=== PATIENT | male | born 1970 | race Caucasian/White ===

== ENCOUNTER 2020-03-30 15:00 | Outpatient (CLI) | payer OTHER, SELFPAY ==
[2020-03-30 15:48] LABS: Alanine Aminotransferase 36 U/L (4-50); Albumin Level 4.1 g/dL (3.5-5.1); Alkaline Phosphatase 60 U/L (38-126); Anion Gap 6 mmol/L (8-16); Aspartate Amino Transferase 46 U/L (17-59); Bilirubin,Total 0.4 mg/dL (0.2-1.3); Blood Urea Nitrogen 19 mg/dL (9-20); Calcium 10.4 mg/dL (8.4-10.2); Carbon Dioxide 29 mmol/L (22-30); Chloride 104 mmol/L (98-107); Estimated Glomerular Filt Rate > 60; Glucose 108 mg/dL (75-110); Potassium 4.6 mmol/L (3.4-5.0); Sodium 139 mmol/L (137-145)
== END 2020-03-30 15:01 | disposition home or self-care (01) ==
LOC: ANHLAB 15:07
PROVIDERS: PCP Family Medicine
DX: K59.03 Drug induced constipation (principal); G56.02 Carpal tunnel syndrome, left upper limb; Z79.891 Long term (current) use of opiate analgesic; M48.02 Spinal stenosis, cervical region; R53.83 Other fatigue; G89.4 Chronic pain syndrome; M47.817 Spondylosis without myelopathy or radiculopathy, lumbosacral region
CPT/HCPCS: 36415; 80053

== ENCOUNTER → 2020-04-27 06:55 | Outpatient (CLI) | payer OTHER, SELFPAY ==
[2020-04-27 17:02] LABS: SARS-CoV-2 RNA PCR Negative
== END ==
PROVIDERS: PCP Family Medicine; Visit Provider Physician Assistant
DX: R68.89 Other general symptoms and signs (principal); Z20.822 Contact with and (suspected) exposure to COVID-19
CPT/HCPCS: C9803; U0003; U0005

== ENCOUNTER 2020-04-28 09:54 | Outpatient (CLI) | payer OTHER, SELFPAY ==
--- NOTE | ~2020-04-28 | XR_ITS ---
EXAMINATION: XR chest 2V DATE: 04/28/2020 10:15 INDICATION: Cough. TECHNIQUE: Frontal and lateral views of the chest were obtained. COMPARISON: Chest 2 views 12/05/2014 FINDINGS: The chest demonstrates clear lungs without pneumonia, pleural effusion, or pneumothorax. Th e heart size is normal. IMPRESSION: 1. No acute cardiopulmonary disease. Reviewed, dictated and finalized at location A.
== END 2020-04-28 09:55 | disposition home or self-care (01) ==
LOC: ANHIMG 10:03
PROVIDERS: PCP Family Medicine; Visit Provider Family Medicine
DX: R05 Cough (principal); Z72.0 Tobacco use
CPT/HCPCS: 71046

== ENCOUNTER → 2022-05-24 16:17 | Outpatient (CLI) | payer OTHER, SELFPAY ==
--- NOTE | ~2022-05-24 | CT_ITS ---
EXAMINATION: CT lung screening DATE: 05/24/2022 16:32 INDICATION: Personal history of nicotine dependence, current smoker with 35 pack year history TECHNIQUE: Computed tomography (CT) of the chest was performed without intravenous contrast. The dose -length product (DLP) was 160.48 mGy-cm. Automated exposure control and iterative reconstruction tech [employer] were employed. COMPARISON: None FINDINGS: There is mild emphysema. The lungs are free of acute opacities. No pleural effusion or pneu mothorax. No pathologically enlarged thoracic lymph nodes are identified. The heart size is normal. C alcified coronary artery atherosclerosis is noted. There is mild thoracic spondylosis. IMPRESSION: 1. Lung-RADS category 1: Negative. Continue annual screening with noncontrast low-dose chest CT in 12 months. Reviewed, dictated and finalized at location F. IMPRESSION: 1. Lung-RADS category 1: Negative. Continue annual screening with noncontrast l ow-dose chest CT in 12 months.
== END ==
PROVIDERS: PCP Family Medicine; Visit Provider Family Medicine
DX: Z12.2 Encounter for screening for malignant neoplasm of respiratory organs (principal); F17.210 Nicotine dependence, cigarettes, uncomplicated
CPT/HCPCS: 71271

== ENCOUNTER 2022-07-05 01:05 | Day surgery (SDC) | payer OTHER, SELFPAY ==
[2022-06-20 11:58] VITALS: BMI 25.8
[2022-07-05 09:42] VITALS: BP 120/72; PULSE 63; RESP 19; TEMP 36.3; O2SAT 100
[2022-07-05] MEDS: LACTATED RINGERS 1,000 ML 150 ML IV CONT (09:53)
--- NOTE | 2022-07-05 10:15 | PM.HPGS ---
History of Present Illness History of Present Illness Consent: Risks, benefits, and alternatives have been discussed and questions answered. Patient agrees to proceed with procedure. Chief complaint: family hx colon ca, hx colon polyps Narrative: Tommy Kathleen is a 52 year old male whose father had colon cancer. He himself has had polyps removed in the past, most recently about 6 years ago. Review of Systems Review of Systems: All systems reviewed & are unremarkable except as noted in HPI and below PMFSH Past Medical History Medical History Acute non-recurrent maxillary sinusitis Adenomatous polyp of sigmoid colon Bipolar disorder, unspecified Bronchitis Closed nondisplaced fracture of proximal phalanx of left great toe Colon polyps Colon polyps FHx: colon cancer Lipid screening Lower extremity pain, bilateral Major depressive disorder, recurrent, moderate Other chronic pain Pneumonia of left lower lobe due to infectious organism Tobacco abuse Tobacco abuse Family History Family History Mother Depression Sibling Depression Patient's brother is Father Carcinoma of colon, Onset Age: 70 Patient's father is Social History Social History Social History: Smoking packs per day: 1 Smoking cigarettes per day: 20.0 Years smoked: 30 Smoking pack-years: 30.00 Smoking status: Current every day smoker Tobacco type: cigarettes Second hand tobacco smoke exposure: Yes Smoking end date: 02/11/16 Alcohol intake: current Substance use: never Substance use type: does not use Lack of Transportation: No Lack of Food: Never True Current Housing: I Have Housing Concerned About Future Housing: No Difficulty Paying Gas/Electric Bills: No Difficulty Paying for Meds: No Currently Unemployed: No Education: Decline to Answer Living arrangements: with family Occupation/Education: occupation Gender identity (if verbalized by the patient): Male Sexual Orientation (if Verbalized by the Patient): Straight or Heterosexual Spiritual care concerns: No Meds Home Medications and Allergies Home Medications Medication Instructions Recorded Confirmed Type dexmethylphenidate 10 mg tablet 10 mg PO BID 04/28/20 06/20/22 History (Focalin) lamotrigine 200 mg tablet 200 mg PO DAILY 04/28/20 06/20/22 History hydrocodone 7.5 mg-acetaminophen 1 tablet PO Q8H PRN Pain 05/14/22 06/20/22 History 325 mg tablet serdexmethylphenidate 52.3 1 tablet PO QAM 05/14/22 06/20/22 History mg-dexmethylphenidate 10.4 mg capsule (Azstarys) vilazodone 40 mg tablet (Viibryd) 40 mg PO DAILY 05/14/22 06/20/22 History Allergies Allergy/AdvReac Type Severity Reaction Status Date / Time No Known Allergies Allergy Verified 07/05/22 09:41 Vital Signs Vital Signs - 24 hr 07/05/22 09:42 Temperature 36.3 C L Pulse Rate 63 Respiratory Rate 19 Blood Pressure 120/72 Pulse Oximetry 100 Oxygen Delivery Room Air Exam Resp: Auscultation: clear to auscultation bilaterally Cardio: Rate: regular rate Rhythm: regular rhythm GI: GI Palp: Yes Soft to palpation and No Tenderness to palpation present (GI) Assessment and Plan Assessment and plan (1) Colon cancer screening: Code(s): Z12.11 - Encounter for screening for malignant neoplasm of colon Status: Acute Assessment and Plan: Colonoscopy with possible biopsy or polypectomy or cautery or injection of substances.
--- NOTE | 2022-07-05 10:44 | WPDANESEPPF ---
Anes - Initial Pre Proc Eval Procedure: Operation Date: 07/05/22 11:00 Proposed Procedures p Colonoscopy - Tomas Carrasco MD Date/Time: 07/05/22 10:44 Surgeon: Tomas Carrasco MD Pre Op Diagnosis: family hx colon ca, hx colon polyps Patient Data Age: 52 Gender: M Height: 1.8 m Weight: 80.2 kg Last Vital Signs Temp 97.4 F L 07/05/22 09:42 Pulse 63 07/05/22 09:42 Resp 19 07/05/22 09:42 BP 120/72 07/05/22 09:42 Pulse Ox 100 07/05/22 09:42 O2 Del Method Room Air 07/05/22 09:42 Allergies Allergy/AdvReac Type Severity Reaction Status Date / Time No Known Allergies Allergy Verified 07/05/22 09:41 Home Medications Medication Instructions Recorded Confirmed Type dexmethylphenidate 10 mg tablet 10 mg PO BID 04/28/20 06/20/22 History (Focalin) lamotrigine 200 mg tablet 200 mg PO DAILY 04/28/20 06/20/22 History hydrocodone 7.5 mg-acetaminophen 1 tablet PO Q8H PRN Pain 05/14/22 06/20/22 History 325 mg tablet serdexmethylphenidate 52.3 1 tablet PO QAM 05/14/22 06/20/22 History mg-dexmethylphenidate 10.4 mg capsule (Azstarys) vilazodone 40 mg tablet (Viibryd) 40 mg PO DAILY 05/14/22 06/20/22 History Patient hx anesthesia problems: none Family hx anesthesia problems: none Results Review: All pre-operative results and documents have been reviewed as part of the pre-operative evaluation. [facility] Past Medical History Medical History Acute non-recurrent maxillary sinusitis Adenomatous polyp of sigmoid colon Bipolar disorder, unspecified Bronchitis Closed nondisplaced fracture of proximal phalanx of left great toe Colon polyps Colon polyps FHx: colon cancer Lipid screening Lower extremity pain, bilateral Major depressive disorder, recurrent, moderate Other chronic pain Pneumonia of left lower lobe due to infectious organism Tobacco abuse Tobacco abuse Family History Family History Mother Depression Sibling Depression Patient's brother is Father Carcinoma of colon, Onset Age: 70 Patient's father is Social History Social History Social History: Smoking packs per day: 1 Smoking cigarettes per day: 20.0 Years smoked: 30 Smoking pack-years: 30.00 Smoking status: Current every day smoker Tobacco type: cigarettes Second hand tobacco smoke exposure: Yes Smoking end date: 02/11/16 Alcohol intake: current Substance use: never Substance use type: does not use Lack of Transportation: No Lack of Food: Never True Current Housing: I Have Housing Concerned About Future Housing: No Difficulty Paying Gas/Electric Bills: No Difficulty Paying for Meds: No Currently Unemployed: No Education: Decline to Answer Living arrangements: with family Occupation/Education: occupation Gender identity (if verbalized by the patient): Male Sexual Orientation (if Verbalized by the Patient): Straight or Heterosexual Spiritual care concerns: No Anes - Eval Final PreProcedure Day of Procedure 07/05/22 10:44 Patient weight: normal Heart: regular rate and rhythm Lungs: clear to auscultation Airway: Mallampati scale class II Neurological: alert and oriented Last oral intake: >/= 8 hours ASA classification: III Emergent: no Anesthetic plan: proceed Anesthesia type and monitoring: general GIVS and standard monitoring Results Review: All pre-operative results and documents have been reviewed as part of the pre-operative evaluation. Informed Consent: The patient's anesthetic plan and its attendant risks and benefits were discussed with the patient/family/POA. Questions were solicited and answers provided to the satisfaction of the patient/family/POA.
[2022-07-05] MEDS: SIMETHICONE ORAL SUSPENSION 20 MG/0.3 ML 30 ML BOTTLE 0.6 ML IRRIGATION (10:53)
[2022-07-05 11:07] VITALS: BP 122/76; PULSE 60; RESP 15; O2SAT 100
[2022-07-05 11:17] VITALS: BP 123/74; PULSE 61; RESP 15; O2SAT 100
[2022-07-05 11:27] VITALS: BP 122/76; PULSE 64; RESP 15; O2SAT 100
== END 2022-07-05 11:35 | disposition home or self-care (01) ==
PROVIDERS: PCP Family Medicine; Visit Provider Internal Medicine Gastroenterology
PROC: 0DJD8ZZ Inspection of Lower Intestinal Tract, Via Natural or Artificial Opening Endoscopic (ICD-10-PCS; CPT 45378; principal; 2022-07-05 11:00)
DX: Z12.11 Encounter for screening for malignant neoplasm of colon (principal); D12.4 Benign neoplasm of descending colon; Z80.0 Family history of malignant neoplasm of digestive organs; F17.210 Nicotine dependence, cigarettes, uncomplicated
CPT/HCPCS: 45380; 88305; J2001; J2704; J7120

== ENCOUNTER 2023-06-02 08:17 | Outpatient (CLI) | payer OTHER, SELFPAY ==
--- NOTE | ~2023-06-02 | CT_ITS ---
EXAMINATION: CT lung screening DATE: 06/02/2023 08:31 INDICATION: Nicotine dependence TECHNIQUE: Computed tomography (CT) of the chest was performed without intravenous contrast. The dose -length product was 150.03 mGy-cm. Automated exposure control and iterative reconstruction technique were employed. COMPARISON: CT chest dated 05/24/2022 FINDINGS: Heart size is normal. No thoracic lymphadenopathy. No significant pleural or pericardial ef fusion. Upper abdomen is unremarkable. No endobronchial lesions. No pneumothorax. No suspicious pulmo nary nodules or masses. There is a 2 mm fissural nodule on the right. Mild thoracic spondylosis. No f ocal lytic or blastic lesions. IMPRESSION: 1. Lung-RADS category 2: Benign appearance or behavior. Continue annual screening with noncontrast lo w-dose chest CT in 12 months. Reviewed, dictated and finalized at location B. IMPRESSION: 1. Lung-RADS category 2: Benign appearance or behavior. Continue annual screeni ng with noncontrast low-dose chest CT in 12 months.
== END 2023-06-02 08:18 ==
LOC: MICIMG 08:18
PROVIDERS: PCP Family Medicine; Visit Provider Family Medicine
DX: Z12.2 Encounter for screening for malignant neoplasm of respiratory organs (principal); Z87.891 Personal history of nicotine dependence
CPT/HCPCS: 71271

== ENCOUNTER 2024-06-04 08:39 | Outpatient (CLI) | payer OTHER, SELFPAY ==
--- OUTSIDE RECORDS SUMMARY | 2024-06-04 08:49 | XMS_ITS | Clinical Summary ---
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 01/08/2018 Active Last Documented On 3 5:51PM ; [facility] Past Visits Onset Date Resolved Date Provider Condition Status Esophageal Reflux 04/13/2019 Active Last Documented On 3 5:52PM ; [facility] Nonorganic Sleep Apnea Obstructive 02/10/2019 Active Last Documented On 3 5:52PM ; [facility] Vitamin Deficiency 10/11/2017 Active Last Documented On 3 5:51PM ; [facility] Note: Vitamin D deficiency Psychophysiological Insomnia 03/08/2016 Active Last Documented On 3 5:50PM ; [facility] Nicotine Dependence 05/13/2014 Activ e Last Documented On 3 5:48PM ; [facility] Generalized Anxiety Disorder 01/05/2014 Active Last Documented On 3 5:47PM ; [facility] Major Depression, Recurrent 01/05/2014 Active Last Documented On 3 5:47PM ; [facility] Bipolar II Disorder 10/11/2013 Activ e Last Documented On 3 5:47PM ; [facility] Plan of Treatment Pending Tests Order Diagnosis Results Due Ordering P roelidader Lab Lipid Panel 03/19/23 FRANCINE HARPER MD Last Documented On 4 5:44PM ; [facility] Lab Vitamin D 03/19/23 FRANCINE DYER MD Last Documented On 4 5:44PM ; [facility] Lab CMP (FASTING) 03/19/23 FRANCINE DHALIWAL MD Last Documented On 4 5:44PM ; [facility] Assessments Includes: Assessments from this encounter Findings - Attention deficit disorder without hyperactivity, predominantly inattentive type - Last Documented On 01/13/2023 1:13PM ; [facility] Medical Equipment - Implanted Devices Includes: Current Devices No Medical Equipment Recorded Medications Includes: Medications discussed during this encounter and other current Medications New / Renewed during this visit FRANCINE DHALIWAL MD on 01/13/2023 Methylphenidate HCl 20 MG Oral Tablet Provider: FRANCINE DHALIWAL MD 30 day supply: 30 tablet, 0 refills Diagnosis: Attn-defct hyperactivity disorder, predom inattentive type as directed - 1 tab at 1 pm Pharmacy: [facility] [address] [facility], [id number] - Last Documented On 07/02/2023 5:17PM By Randi Dhaliwal MD ; [facility] Current Medications (continue as prescribed) Focalin 10 MG Oral Tablet 07/30/2023 Provider: FRANCINE DHALIWAL MD Diagnosis: Attn-defct hyper activity disorder, predom inattentive type as directed -- 1 tab in am a nd 1 tab at 12 noon Last Documented On 07/30/2023 3:13PM By Randi Dhaliwal MD ; [facility] Azstarys 52.3-10.4 MG Oral Capsule 07/30/2023 Provider: FRANCINE DHALIWAL MD Diagnosis: Attn-defct hyper activity disorder, predom inattentive type 1 Capsule every morning Last Documented On 07/30/2023 3:13PM By Randi Dhaliwal MD ; [facility] Ergocalciferol 1.25 MG (99512 UT) Oral Capsule 07/03/2023 Provider: FRANCINE MARTINEZ MD Diagnosis: Vitamin D defici ency, unspecified as directed 1 capsule once a week Last Documented On 07/03/2023 9:50PM By Randi Dhaliwal MD ; [facility] lamoTRIgine 150 MG Oral Tablet 05/06/2023 Provider: FRANCINE DHALIWAL MD Diagnosis: Bipolar II disor jason TAKE 1 TABLET BY MOUTH TWICE A DAY Last Documented On 05/06/2023 8:06AM By Randi Dhaliwal MD ; [facility] HYDROcodone-Acetaminophen 7.5-325 MG OR TABS Provider: Diagnosis: 1 - 3 times daily as needed 01/07/22 Last Documented On 06/08/2022 5:34PM By JOIE ARCHIBALD ; [facility] Belsomra 10 MG OR TABS 10/31/2021 Provider: ANDRE DHALIWAL MD Diagnosis: Psychophysiologi c insomnia One tablet at bed time Last Documented On 06/08/2022 5:34PM By Randi Dhaliwal MD ; [facility] Sildenafil Citrate 20 MG OR TABS 09/12/2020 Provider: FRANCINE DHALIWAL MD Diagnosis: Male erectile di sorder as directed -- 1 tab a day a s needed only Last Documented On 06/08/2022 5:34PM By Randi Dhaliwal MD ; [facility] Past Medications on file Vilazodone HCl 40 MG Oral Tablet 11/07/2022 - 11/02/2023 Provider: FRANCINE DHALIWAL MD Diagnosis: Major depressive disorder, recurrent, moderate 1 tablet every morning with food Last Documented On 11/07/2022 5:41PM By Randi Dhaliwal MD ; [facility] Azstarys 39.2-7.8 MG OR CAPS 02/07/2022 - 03/09/2022 Provider: FRANCINE DHALIWAL MD Diagnosis: Attn-defct hyper activity disorder, predom inattentive type 1 Capsule every morning Last Documented On 06/08/2022 5:34PM By Randi Dhaliwal MD ; [facility] Mydayis 25 MG OR CP24 04/13/2019 - 05/13/2019 Provider: FRANCINE DHALIWAL MD Diagnosis: Attn-defct hyper activity disorder, predom inattentive type 1 Capsule every morning Last Documented On 06/08/2022 5:34PM By Randi Dhaliwal MD ; [facility] Cialis 20 MG OR TABS 12/09/2014 - 12/12/2014 Provider: FRANCINE DHALIWAL MD Diagnosis: Male erectile dysfunction, unspecified as directed --given 3 tablet s samples of 20 mg --36 hour tablet Last Documented On 06/08/2022 5:34PM By Randi Dhaliwal MD ; [facility] levoFLOXacin 500 MG OR TABS 12/09/2014 - 12/23/2014 Pr ovider: Diagnosis: Take 1 tablet by mouth twice daily until gone Last Documented On 06/08/2022 5:34PM By RYNE EMERY LPN ; [facility] Medications Administered Includes: Administered Medications from this encounter No Administered Medications Recorded Results Includes: Results discussed during this encounter No Results Recorded For Specified Dates History of Present Illness Includes: History of Present Illness from this encounter No History of Present Illness Recorded Social History No Social History Recorded - Smoking Status Unknown Medical History Includes: Medical History addressed during this encounter No Medical History Recorded Family History Includes: Family History addressed during this encounter No Family History Recorded Review of Systems Includes: Review of Systems from this encounter No Review of Systems Recorded Mental Status Includes: Mental Status from this encounter No Mental Status Recorded Functional Status Includes: Functional Status from this encounter No Functional Status Recorded Physical Exam Includes: Physical Exam from this encounter No Physical Exam Recorded Allergies Includes: Active Allergies No Known Allergies Encounters Encounter Provider Location Date Check-In Time Check-Out Time Diagnosis * PHONE CALL FRANCINE DHALIWAL MD [facility] 01/14/20 23 10:34AM 11:59PM 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 Insurance Includes: Active Insurance Policies Plan Name Member ID Group # Subscriber Relationship Effect tanja Dates 1 - [employer] [id number] TOMMY FELIPE Self 08/10/2016 - Unknown Clinical Notes Includes: Clinical Notes from this encounter * Progress note Date Encounter Last Documented by 01/13/2023 * PHONE CALL Last documented on 01/13/2023; 1:14 PM, FRANCINE DHALIWAL MD; [facility] Active Problems & Conditions - 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 He would like to request a replacement for his backup Focalin 10 mg 1 qam and 1 at noon since it is on back order at every pharmacy he checked and he has not been able to get it. He will continue the Azstarys 52.3 mg in the morning. pt phone # for return call: [phone] date/initials: 01/13/23 bk Current Medication - Azstarys 52.3-10.4 MG Oral Capsule 1 Capsule every morning, 30 days, 0 refills - Belsomra 10 MG Tablet One tablet at bed time One tablet at bed time, 30 days, 1 refills - Cyclobenzaprine HCl 10 MG Tablet as directed 1 tab prn, 30 days, 0 refills - Ergocalciferol 1.25 MG (36273 UT) Oral Capsule as directed 1 capsule once a week, 90 days, 3 refills - Ergocalciferol 1.25 MG (92555 UT) Oral Capsule as directed 1 capsule once a week, 90 days, 3 refills - Focalin 10 MG Oral Tablet as directed -- 1 tab in am and 1 tab at 12 noon, 30 days, 0 refills - HYDROcodone-Acetaminophen 7.5-325 MG Tablet as directed 1 - 3 times daily as needed 01/07/22, 28 days, 0 refills - lamoTRIgine 150 MG Tablet TAKE 1 TABLET BY MOUTH TWICE A DAY, 90 days, 3 refills - Sildenafil Citrate 20 MG Tablet as directed as directed -- 1 tab a day as needed only, 30 days, 3 refills - Vilazodone HCl 40 MG Oral Tablet 1 tablet every morning with food, 90 days, 3 refills - Vitamin D (Ergocalciferol) 1.25 MG (17484 UT) Capsule TAKE 1 CAPSULE BY MOUTH ONCE A WEEK, 90 days, 3 refills User Defined 4 Past Psychiatric Hospitalizations: none Past Psychiatric Treatment: Dr. Willard for nine months. He was put on Celexa , Buspar, Trazodone. Dr. Saba in 2007. Dr. Dhaliwal -- on 04/11/2008 and then stopped coming. His last visit with tx was 04/04/10 and has never called for follow up until later. Past Psychiatric Medications: Zoloft -- helped in 1994, but had diarrhea. Celexa 60 mg one a day for which he responded before but then when it was reintroduced in August 2013 somehow his depression got worse. Prozac -- given by his then primary care physician around September 2013 but depression got worse. Bupropion -- 2000 + did not do well with it, had side effects Cialis -- did not help much Viagra -- sometimes it helped and at other times not Chantix -- it helped him quit smoking -- he quit smoking 07/2016 after about 30 years of smoking but started smoking again in late 2016 early 2017 -- tried Chantix 10/2018 caused stomach upset Buspar -- did not help Trazodone -- did not help Vyvanse 30 mg -- diarrhea -- stopped taking 10/2018 Mydayis -- apprehensive that it may last longer than usual so wants to just continue Focalin - 04/2019 Rexulti 1 mg -- did not notice a difference 09/2020 Trintellix 20 mg -- caused nausea/vomiting - discontinued 07/2021 Allergies - No Known Allergies Assessment - Attention deficit disorder without hyperactivity, predominantly inattentive type Plan StartCited - Attn-defct hyperactivity disorder, predom inattentive type Methylphenidate HCl 20 MG tablet as directed - 1 tab at 1 pm, 30 days, 0 refills EndCited StartCited - Other PHY ORDER/COMMENT Please find out if Methylphenidate 20 mg is available in his pharmacy and then let Tommy know. PHY ORDER/COMMENT Tommy has been aware of the availability of Methyphenidate per my M.A. (bk). EndCited
--- OUTSIDE RECORDS SUMMARY | 2024-06-04 08:50 | XMS_ITS | Clinical Summary ---
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 Gender Identity Not on file Sexual Orientation Not on file Plan of Treatment Health Maintenance Due Date Last Done Comments Colorectal Cancer Screening Colonoscopy (10 Years) 1968 Annual Physical 02/24/1971 Hepatitis C 02/24/1986 DTaP, Tdap and Td Vaccines ( 1 - Tdap) 02/24/1987 Hepatitis B Vaccines (1 of 3 - 19+ 3-dose series) 02/24/1987 Pneumococcal Vaccine: 50+ Ye ars (1 of 1 - PCV) 02/24/2018 Zoster Vaccines (1 of 2) 02/24/2018 COVID-19 Vaccine ( - 2023-2 5 season) 2023 Meningococcal B Vaccine Aged Out No l onger eligible based on patient's age to complete this topic Meningococcal Vaccine Aged Out No dinesh lj eligible based on patient's age to complete this topic RSV Immunizations Under 20 Months Aged Out No longer eligible based on patient's age to complete this topic Insurance GENERIC - COMMERCIAL Care Teams Geospatial Analyst Relationship Specialty Start Date End Date Stacie Ny MD [id number] [facility] [address] [facility] [address] [place] [address] PCP - General FAMILY PRACTICE 03/09/20
--- OUTSIDE RECORDS SUMMARY | 2024-06-04 08:50 | XMS_ITS | Encounter Summary ---
Author Organization [facility] Address [address] [place] [address] Care Team Providers Care Fork Operator Name Role Phone Marcello Briceño DO Primary Care Provider + Pcp, [facility] Primary Care Provide r Unavailable Encounter Details Date Type Department Care Team (Late st Contact Info) Description 05/17/2008 SS Outpatient Visit EXTERNAL NON-[place] [address] [place] [address] [place] [id number] Social History Tobacco Use Types Packs/Day Years Used Date Smoking Tobacco: Every Day Cigarettes 1 20 Comments:not ready to quit Alcohol Use Standard Drinks/Week Comments Yes 0 (1 standard drink = 0.6 oz pur e alcohol) one 12 pack a week Sex and Gender Information Value Date Recorded Sex Assigned at Not on file 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
--- OUTSIDE RECORDS SUMMARY | 2024-06-04 08:50 | XMS_ITS ---
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 Name Role Phone NIKHIL CONNER, STACIE Jacobo Primary Care Provider [phone] QUYEN CONNER, FRANCINE MENG Unavailable [phone] Problems Includes: Active, inactive, and resolved Problems All Visits Onset Date Resolved Date Provider Condition S tatus Esophageal Reflux 04/13/2019 FRANCINE Armijo MD Active Last Documented On 0 10:58AM ; [facility] Nonorganic Sleep Apnea Obstructive 02/10/2019 Hellen DHALIWAL MD Active Last Documented On 0 2:21PM ; [facility] 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 01/08/2018 FRANCINE XIONG MD Active Last Documented On 8 3:14PM ; [facility] Vitamin Deficiency 10/11/2017 FRANCINE XIONG MD Active Last Documented On 01/02/2018 5:58PM ; [facility] Note: Vitamin D deficiency Obsessive Compulsive Disorder 09/10/2017 FRANCINE DHALIWAL MD Active Last Documented On 8 5:53PM ; [facility] Psychophysiological Insomnia 03/08/2016 FRANCINE DHALIWAL MD Active Last Documented On 7 4:59PM ; [facility] Nicotine Dependence 05/13/2014 FRANCINE MARTINEZ MD Active Last Documented On 7 5:13PM ; [facility] Generalized Anxiety Disorder 01/05/2014 FRANCINE DHALIWLA MD Active Last Documented On 4 10:48AM ; [facility] Major Depression, Recurrent 01/05/2014 FRANCINE DHALIWAL MD Active Last Documented On 4 10:12AM ; [facility] Bipolar II Disorder 10/11/2013 FRANCINE MARTINEZ MD Active Last Documented On 4 1:19AM ; [facility] Plan of Treatment Findings Encounter Date Clinical summary transmitted to referring provider electronically with reasonable certainty of receipt GENERAL OFFICE VISIT with FRANCINE DHALIWAL MD 04/13/2019 Last Documented On 0 8:47PM ; [facility] Ordered Transition in care, clinical summary provided GENERAL OFFICE VISIT with FRANCINE DHALIWAL MD 04/13/2019 Last Documented On 0 8:47PM ; [facility] Requested Referred to: Sleep specialist - in home sleep study to R/O SEVERINO GENERAL OFFICE VISIT with FRANCINE DHALIWAL MD 04/13/2019 Last Documented On 0 8:47PM ; [facility] Referrals To Diagnosis In-Home Sleep Study Obstructive sleep apnea (adult) (pediatric) Last Documented On 0 5:43PM ; [facility] Instructions to patient Lose weight - continue porti on control, balanced diet Last Documented On 2 8:33AM ; [facility] Lose weight - balanced meals Last Documented On 2 10:08AM ; [facility] Intervention and counseling on cessation of tobacco use Last Documented On 1 5:09PM ; [facility] Lose weight - portion contro l Last Documented On 2 8:47AM ; [facility] Lose weight Last Documented On 1 5:19PM ; [facility] Lose weight Last Documented On 1 4:50PM ; [facility] Intervention and counseling on cessation of tobacco use Last Documented On 1 5:26PM ; [facility] Intervention and counseling on cessation of tobacco use Last Documented On 0 4:41PM ; [facility] Lose weight Last Documented On 0 4:41PM ; [facility] Intervention and counseling on cessation of tobacco use Last Documented On 0 10:12AM ; [facility] Intervention and counseling on cessation of tobacco use Last Documented On 9 3:22PM ; [facility] Intervention and counseling on cessation of tobacco use Last Documented On 9 9:06AM ; [facility] Intervention and counseling on cessation of tobacco use Last Documented On 8 10:24AM ; [facility] Education and Decision Aids were provided during visit for: Discussed calming techniques such as breathing exercises and other relaxation techniques Last Documented On 3 5:03PM ; [facility] Discussed good sleep hygiene habits Last Documented On 3 5:16PM ; [facility] Patient education about medi cation ---Education was given on medication(s) and diagnosis. I reviewed the risks, benefits and side effects of patient's medications Last Documented On 2 4:33PM ; [facility] Discussed calming techniques such as breathing exercises and other relaxation techniques Last Documented On 2 4:33PM ; [facility] Discussed good sleep hygiene habits Last Documented On 2 4:41PM ; [facility] Patient education about medi cation ---Education was given on medication(s) and diagnosis. I reviewed the risks, benefits and side effects of patient's medications Last Documented On 2 4:34PM ; [facility] Discussed calming techniques such as breathing exercises and other relaxation techniques Last Documented On 2 4:34PM ; [facility] Patient counseling I discuss ed risk, benefits, and side effects of sleep aid - Belsomra including the possibility of sleep related behaviors i.e. sleepwalking, sleeptalking, sleepdriving, etc... Pt verbalized understanding Last Documented On 2 7:40AM ; [facility] Discussed good sleep hygiene habits Last Documented On 2 4:45PM ; [facility] Patient education about medi cation --- I educated patient on medication(s) and diagnosis. I reviewed the risks, benefits and side effects of patient's medications Last Documented On 2 4:38PM ; [facility] Discussed calming techniques such as breathing exercises and other relaxation techniques Last Documented On 2 4:38PM ; [facility] Patient education about medi cation --- I educated patient on medication(s) and diagnosis. I reviewed the risks, benefits and side effects of patient's medications Last Documented On 2 4:40PM ; [facility] Discussed calming techniques such as breathing exercises and other relaxation techniques Last Documented On 2 4:40PM ; [facility] Counseling for nutrition/leigha ght management provided Last Documented On 2 4:43PM ; [facility] Patient education about medi cation --- I educated patient on medication(s) and diagnosis. I reviewed the risks, benefits and side effects of patient's medications Last Documented On 1 5:06PM ; [facility] Discussed calming techniques such as breathing exercises and other relaxation techniques Last Documented On 1 5:06PM ; [facility] Counseling for nutrition/leigha ght management provided Last Documented On 1 5:08PM ; [facility] Discussed good sleep hygiene habits Last Documented On 2 8:47AM ; [facility] Patient education about medi cation --- I educated patient on medication(s) and diagnosis. I reviewed the risks, benefits and side effects of patient's medications Last Documented On 1 5:06PM ; [facility] Discussed calming techniques such as breathing exercises and other relaxation techniques Last Documented On 1 5:06PM ; [facility] Counseling for nutrition/leigha ght management provided Last Documented On 1 5:19PM ; [facility] Discussed good sleep hygiene habits Last Documented On 1 5:19PM ; [facility] Patient education about medi cation --- I educated patient on medication(s) and diagnosis. I reviewed the risks, benefits and side effects of patient's medications Last Documented On 1 4:34PM ; [facility] Discussed calming techniques such as breathing exercises and other relaxation techniques Last Documented On 1 4:34PM ; [facility] Counseling for nutrition/leigha ght management provided Last Documented On 1 4:50PM ; [facility] Discussed good sleep hygiene habits Last Documented On 1 4:50PM ; [facility] Patient education about medi cation --- I educated patient on medication(s) and diagnosis. I reviewed the risks, benefits and side effects of patient's medications Last Documented On 1 5:15PM ; [facility] Discussed calming techniques such as breathing exercises and other relaxation techniques Last Documented On 1 5:15PM ; [facility] Counseling for nutrition/leigha ght management provided Last Documented On 1 5:26PM ; [facility] Patient education about medi cation --- I educated patient on medication(s) and diagnosis. I reviewed the risks, benefits and side effects of patient's medications Last Documented On 0 4:29PM ; [facility] Discussed calming techniques such as breathing exercises and other relaxation techniques Last Documented On 0 4:29PM ; [facility] Counseling for nutrition/leigha ght management provided Last Documented On 0 4:41PM ; [facility] Patient education about a pr oper diet Last Documented On 0 10:12AM ; [facility] Patient education about medi cation --- I educated patient on medication(s) and diagnosis. I reviewed the risks, benefits and side effects of patient's medications Last Documented On 0 10:01AM ; [facility] Discussed calming techniques such as breathing exercises and other relaxation techniques Last Documented On 0 10:01AM ; [facility] Counseling for nutrition/leigha ght management provided Last Documented On 0 10:12AM ; [facility] Discussed good sleep hygiene habits Last Documented On 0 8:42PM ; [facility] Patient education about a pr oper diet Last Documented On 9 3:22PM ; [facility] Patient education about medi cation --- I educated patient on medication(s) and diagnosis. I reviewed the risks, benefits and side effects of patient's medications Last Documented On 9 3:07PM ; [facility] Discussed calming techniques such as breathing exercises and other relaxation techniques Last Documented On 9 3:07PM ; [facility] Counseling for nutrition/leigha ght management provided Last Documented On 9 3:22PM ; [facility] Patient education about a pr oper diet Last Documented On 9 9:06AM ; [facility] Patient education about medi cation --- I educated patient on medication(s) and diagnosis. I reviewed the risks, benefits and side effects of patient's medications Last Documented On 9 9:00AM ; [facility] Discussed calming techniques such as breathing exercises and other relaxation techniques Last Documented On 9 9:00AM ; [facility] Counseling for nutrition/leigha ght management provided Last Documented On 9 9:06AM ; [facility] Patient education about a pr oper diet Last Documented On 8 10:24AM ; [facility] Patient education about medi cation --- I educated patient on medication(s) and diagnosis. I reviewed the risks, benefits and side effects of patient's medications Last Documented On 8 10:21AM ; [facility] Counseling for nutrition/leigha ght management provided Last Documented On 8 10:24AM ; [facility] Patient education about medi cation --- I educated patient on medication(s) and diagnosis. I reviewed the risks, benefits and side effects of patient's medications Last Documented On 7 4:30PM ; [facility] Discussed calming techniques such as breathing exercises and other relaxation techniques Last Documented On 7 4:30PM ; [facility] Counseling for nutrition/leigha ght management provided Last Documented On 7 10:40AM ; [facility] Patient education about medi cation --- I educated patient on medication(s) and diagnosis. I reviewed the risks, benefits and side effects of patient's medications Last Documented On 7 1:59PM ; [facility] Discussed calming techniques such as breathing exercises and other relaxation techniques Last Documented On 7 1:59PM ; [facility] Counseling for nutrition/leigha ght management provided Last Documented On 7 10:00PM ; [facility] Patient education about medi cation --- I educated patient on medication(s) and diagnosis. I reviewed the risks, benefits and side effects of patient's medications Last Documented On 7 4:30PM ; [facility] Discussed calming techniques such as breathing exercises/meditation and other relaxation techniques Last Documented On 7 4:30PM ; [facility] Counseling for nutrition/leigha ght management provided Last Documented On 7 2:16AM ; [facility] Discussed good sleep hygiene habits Last Documented On 7 2:16AM ; [facility] Patient education about medi cation --- I educated patient on medication(s) and diagnosis. I reviewed the risks, benefits and side effects of patient's medications Last Documented On 6 9:01AM ; [facility] Discussed calming techniques such as breathing exercises/meditation and other relaxation techniques Last Documented On 6 9:01AM ; [facility] Counseling for nutrition/leigha ght management provided Last Documented On 6 5:36PM ; [facility] Patient education about medi cation --- I educated patient on medication(s) and diagnosis. I reviewed the risks, benefits and side effects of patient's medications Last Documented On 6 1:19PM ; [facility] Discussed calming techniques such as breathing exercises/meditation and other relaxation techniques Last Documented On 6 1:19PM ; [facility] Counseling for nutrition/leigha ght management provided Last Documented On 6 9:37PM ; [facility] Patient education about medi cation --- I educated patient on medication(s) and diagnosis. I reviewed the risks, benefits and side effects of patient's medications.--Cialis Last Documented On 5 7:53AM ; [facility] Discussed calming techniques such as breathing exercises/meditation and other relaxation techniques Last Documented On 5 1:24PM ; [facility] Counseling for nutrition/leigha ght management provided Last Documented On 5 7:45AM ; [facility] Patient education about medi cation --- I educated patient on medication(s) and diagnosis. I reviewed the risks, benefits and side effects of patient's medications Last Documented On 5 7:56PM ; [facility] Discussed calming techniques such as breathing exercises/meditation and other relaxation techniques Last Documented On 5 9:55AM ; [facility] Counseling for nutrition/leigha ght management provided Last Documented On 5 7:56PM ; [facility] Patient education about medi cation --- I educated patient on medication(s) and diagnosis. I reviewed the risks, benefits and side effects of patient's medications Last Documented On 5 3:06PM ; [facility] Discussed calming techniques such as breathing exercises/meditation and other relaxation techniques Last Documented On 5 2:09PM ; [facility] Counseling for nutrition/leigha ght management provided Last Documented On 5 3:06PM ; [facility] Patient education about medi cation --- I educated patient on medication(s) and diagnosis. I reviewed the risks, benefits and side effects of patient's medications including Lamictal and Viibryd --was given P.I. and discount coupon. So far no rash on Lamictal Last Documented On 4 7:18PM ; [facility] Discussed calming techniques such as breathing exercises/meditation and other relaxation techniques Last Documented On 4 4:44PM ; [facility] Counseling for nutrition/leigha ght management provided Last Documented On 4 7:12PM ; [facility] Patient education about medi cation --- I educated patient on medication(s) and diagnosis. I reviewed the risks, benefits and side effects of patient's medications. Patient was given a package insert and samples for Viibryd Last Documented On 4 1:22AM ; [facility] Discussed calming techniques such as breathing exercises/meditation and other relaxation techniques Last Documented On 4 9:54AM ; [facility] Assessments Includes: Assessments for all patient encounters Findings Encounter Date Attention deficit disorder w ithout hyperactivity, predominantly inattentive type TELEHEALTH with FRANCINE DHALIWAL MD 05/06/2022 Last Documented On 3 7:05PM ; [facility] Bipolar II disorder TELEHEALTH with FRANCINE DHALIWAL MD 05/06/2022 Last Documented On 3 7:05PM ; [facility] Generalized anxiety disorder TELEHEALTH with MET LUCINA DHALIWAL MD 05/06/2022 Last Documented On 3 7:05PM ; [facility] Major depression, recurrent TELEHEALTH with VANESSA DHALIWAL MD 05/06/2022 Last Documented On 3 7:05PM ; [facility] Nicotine dependence -- quit 07/2016 but started smoking again 12/2016 TELEHEALTH with FRANCINE DHALIWAL MD 05/06/2022 Last Documented On 3 7:05PM ; [facility] Obstructive sleep apnea TELEHEALTH with FRANCINE DHALIWAL MD 05/06/2022 Last Documented On 3 7:05PM ; [facility] Psychophysiological insomnia TELEHEALTH with MET LUCINA DHALIWAL MD 05/06/2022 Last Documented On 3 7:05PM ; [facility] Vitamin deficiency TELEHEALTH with FRANCINE HARPER MD 05/06/2022 Last Documented On 3 7:05PM ; [facility] Attention deficit disorder w ithout hyperactivity, predominantly inattentive type * PHONE CALL with FRANCINE DHALIWAL MD 03/05/2022 Last Documented On 3 4:29PM ; [facility] Attention deficit disorder w ithout hyperactivity, predominantly inattentive type TELEHEALTH with FRANCINE DHALIWAL MD 02/06/2022 Last Documented On 3 7:47PM ; [facility] Bipolar II disorder TELEHEALTH with FRANCINE DHALIWAL MD 02/06/2022 Last Documented On 3 7:47PM ; [facility] Generalized anxiety disorder TELEHEALTH with MET LUCINA DHALIWAL MD 02/06/2022 Last Documented On 3 7:47PM ; [facility] Major depression, recurrent TELEHEALTH with VANESSA DHALIWAL MD 02/06/2022 Last Documented On 3 7:47PM ; [facility] Nicotine dependence -- quit 07/2016 but started smoking again 12/2016 TELEHEALTH with FRANCINE DHALIWAL MD 02/06/2022 Last Documented On 3 7:47PM ; [facility] Obstructive sleep apnea TELEHEALTH with FRANCINE DHALIWAL MD 02/06/2022 Last Documented On 3 7:47PM ; [facility] Psychophysiological insomnia TELEHEALTH with MET LUCINA DHALIWAL MD 02/06/2022 Last Documented On 3 7:47PM ; [facility] Vitamin deficiency TELEHEALTH with FRANCINE HARPER MD 02/06/2022 Last Documented On 3 7:47PM ; [facility] Major depression, recurrent * PHONE CALL with ME JAIME DHALIWAL MD 11/28/2021 Last Documented On 2 11:01AM ; [facility] Attention deficit disorder w ithout hyperactivity, predominantly inattentive type TELEHEALTH with FRANCINE DHALIWAL MD 10/31/2021 Last Documented On 2 7:52AM ; [facility] Bipolar II disorder TELEHEALTH with FRANCINE DHALIWAL MD 10/31/2021 Last Documented On 2 7:52AM ; [facility] Generalized anxiety disorder TELEHEALTH with MET LUCINA DHALIWAL MD 10/31/2021 Last Documented On 2 7:52AM ; [facility] Major depression, recurrent TELEHEALTH with VANESSA DHALIWAL MD 10/31/2021 Last Documented On 2 7:52AM ; [facility] Nicotine dependence -- quit 07/2016 but started smoking again 12/2016 TELEHEALTH with FRANCINE DHALIWAL MD 10/31/2021 Last Documented On 2 7:52AM ; [facility] Obstructive sleep apnea TELEHEALTH with FRANCINE DHALIWAL MD 10/31/2021 Last Documented On 2 7:52AM ; [facility] Psychophysiological insomnia TELEHEALTH with MET LUCINA DHALIWAL MD 10/31/2021 Last Documented On 2 7:52AM ; [facility] Vitamin deficiency TELEHEALTH with FRANCINE HARPER MD 10/31/2021 Last Documented On 2 7:52AM ; [facility] Attention deficit disorder w ithout hyperactivity, predominantly inattentive type TELEHEALTH with FRANCINE DHALIWAL MD 07/16/2021 Last Documented On 2 8:40AM ; [facility] Bipolar II disorder TELEHEALTH with FRANCINE DHALIWAL MD 07/16/2021 Last Documented On 2 8:40AM ; [facility] Generalized anxiety disorder TELEHEALTH with MET LUCINA DHALIWAL MD 07/16/2021 Last Documented On 2 8:40AM ; [facility] Major depression, recurrent TELEHEALTH with VANESSA DHALIWAL MD 07/16/2021 Last Documented On 2 8:40AM ; [facility] Nicotine dependence -- quit 07/2016 but started smoking again 12/2016 TELEHEALTH with FRANCINE DHALIWAL MD 07/16/2021 Last Documented On 2 8:40AM ; [facility] Obstructive sleep apnea TELEHEALTH with FRANCINE DHALIWAL MD 07/16/2021 Last Documented On 2 8:40AM ; [facility] Psychophysiological insomnia TELEHEALTH with MET LUCINA DHALIWAL MD 07/16/2021 Last Documented On 2 8:40AM ; [facility] Vitamin deficiency TELEHEALTH with FRANCINE HARPER MD 07/16/2021 Last Documented On 2 8:40AM ; [facility] Attention deficit disorder w ithout hyperactivity, predominantly inattentive type TELEHEALTH with FRANCINE DHALIWAL MD 05/03/2021 Last Documented On 2 10:10AM ; [facility] Bipolar II disorder TELEHEALTH with FRANCINE DAHLIWAL MD 05/03/2021 Last Documented On 2 10:10AM ; [facility] Generalized anxiety disorder TELEHEALTH with MET LUCINA DHALIWAL MD 05/03/2021 Last Documented On 2 10:10AM ; [facility] Major depression, recurrent TELEHEALTH with VANESSA DHALIWAL MD 05/03/2021 Last Documented On 2 10:10AM ; [facility] Nicotine dependence -- quit 07/2016 but started smoking again 12/2016 TELEHEALTH with FRANCINE DHALIWAL MD 05/03/2021 Last Documented On 2 10:10AM ; [facility] Obstructive sleep apnea TELEHEALTH with FRANCINE DHALIWAL MD 05/03/2021 Last Documented On 2 10:10AM ; [facility] Psychophysiological insomnia TELEHEALTH with MET LUCINA DHALIWAL MD 05/03/2021 Last Documented On 2 10:10AM ; [facility] Vitamin deficiency TELEHEALTH with FRANCINE HARPER MD 05/03/2021 Last Documented On 2 10:10AM ; [facility] Attention deficit disorder w ithout hyperactivity, predominantly inattentive type * PHONE CALL with FRANCINE DHALIWAL MD 03/30/2021 Last Documented On 2 2:51PM ; [facility] Attention deficit disorder w ithout hyperactivity, predominantly inattentive type * PHONE CALL with FRANCINE DHALIWAL MD 03/13/2021 Last Documented On 2 6:23PM ; [facility] Major depression, recurrent * PHONE CALL with ME JAIME DHALIWAL MD 03/13/2021 Last Documented On 2 6:23PM ; [facility] Attention deficit disorder w ithout hyperactivity, predominantly inattentive type FOLLOW UP with FRANCINE DHALIWAL MD 01/10/2021 Last Documented On 2 8:49AM ; [facility] Bipolar II disorder FOLLOW UP with FRANCINE HARPER MD 01/10/2021 Last Documented On 2 8:49AM ; [facility] Generalized anxiety disorder FOLLOW UP with VANESSA DHALIWAL MD 01/10/2021 Last Documented On 2 8:49AM ; [facility] Major depression, recurrent FOLLOW UP with ANDRE DHALIWAL MD 01/10/2021 Last Documented On 2 8:49AM ; [facility] Nicotine dependence -- quit 07/2016 but started smoking again 12/2016 FOLLOW UP with FRANCINE DHALIWAL MD 01/10/2021 Last Documented On 2 8:49AM ; [facility] Obstructive sleep apnea FOLLOW UP with FRANCINE DHALIWAL MD 01/10/2021 Last Documented On 2 8:49AM ; [facility] Psychophysiological insomnia FOLLOW UP with VANESSA DHALIWAL MD 01/10/2021 Last Documented On 2 8:49AM ; [facility] Vitamin deficiency FOLLOW UP with FRANCINE DYER MD 01/10/2021 Last Documented On 2 8:49AM ; [facility] Attention deficit disorder w ithout hyperactivity, predominantly inattentive type FOLLOW UP with FRANCINE DHALIWAL MD 11/08/2020 Last Documented On 1 8:54AM ; [facility] Bipolar II disorder FOLLOW UP with FRANCINE HARPER MD 11/08/2020 Last Documented On 1 8:54AM ; [facility] Generalized anxiety disorder FOLLOW UP with VANESSA DHALIWAL MD 11/08/2020 Last Documented On 1 8:54AM ; [facility] Major depression, recurrent FOLLOW UP with ANDRE DHALIWAL MD 11/08/2020 Last Documented On 1 8:54AM ; [facility] Nicotine dependence -- quit 07/2016 but started smoking again 12/2016 FOLLOW UP with FRANCINE DHALIWAL MD 11/08/2020 Last Documented On 1 8:54AM ; [facility] Obstructive sleep apnea FOLLOW UP with FRANCINE DHALIWAL MD 11/08/2020 Last Documented On 1 8:54AM ; [facility] Psychophysiological insomnia FOLLOW UP with VANESSA DHALIWAL MD 11/08/2020 Last Documented On 8:54AM ; [facility] Vitamin deficiency FOLLOW UP with FRANCINE DYER MD 11/08/2020 Last Documented On 1 8:54AM ; [facility] Attention deficit disorder w ithout hyperactivity, predominantly inattentive type FOLLOW UP with FRANCINE DHALIWAL MD 09/12/2020 Last Documented On 1 5:21AM ; [facility] Bipolar II disorder FOLLOW UP with FRANCINE HARPER MD 09/12/2020 Last Documented On 1 5:21AM ; [facility] Generalized anxiety disorder FOLLOW UP with VANESSA DHALIWAL MD 09/12/2020 Last Documented On 1 5:21AM ; [facility] Major depression, recurrent FOLLOW UP with ANDRE DHALIWAL MD 09/12/2020 Last Documented On 1 5:21AM ; [facility] Nicotine dependence -- quit 07/2016 but started smoking again 12/2016 FOLLOW UP with FRANCINE DHALIWAL MD 09/12/2020 Last Documented On 1 5:21AM ; [facility] Obstructive sleep apnea FOLLOW UP with FRANCINE DHALIWAL MD 09/12/2020 Last Documented On 1 5:21AM ; [facility] Psychophysiological insomnia FOLLOW UP with VANESSA DHALIWAL MD 09/12/2020 Last Documented On 1 5:21AM ; [facility] Vitamin deficiency FOLLOW UP with FRANCINE DYER MD 09/12/2020 Last Documented On 1 5:21AM ; [facility] Attention deficit disorder w ithout hyperactivity, predominantly inattentive type TELEHEALTH with FRANCINE DHALIWAL MD 03/22/2020 Last Documented On 1 7:15AM ; [facility] Bipolar II disorder TELEHEALTH with FRANCINE DHALIWAL MD 03/22/2020 Last Documented On 1 7:15AM ; [facility] Generalized anxiety disorder TELEHEALTH with MET LUCINA DHALIWAL MD 03/22/2020 Last Documented On 1 7:15AM ; [facility] Major depression, recurrent TELEHEALTH with VANESSA DHALIWAL MD 03/22/2020 Last Documented On 1 7:15AM ; [facility] Nicotine dependence -- quit 07/2016 but started smoking again 12/2016 TELEHEALTH with FRANCINE DHALIWAL MD 03/22/2020 Last Documented On 1 7:15AM ; [facility] Obstructive sleep apnea TELEHEALTH with FRANCINE DHALIWAL MD 03/22/2020 Last Documented On 1 7:15AM ; [facility] Psychophysiological insomnia TELEHEALTH with MET LUCINA DHALIWAL MD 03/22/2020 Last Documented On 1 7:15AM ; [facility] Vitamin deficiency TELEHEALTH with FRANCINE HARPER MD 03/22/2020 Last Documented On 1 7:15AM ; [facility] Attention deficit disorder w ithout hyperactivity, predominantly inattentive type GENERAL OFFICE VISIT with FRANCINE DHALIWAL MD 08/31/2019 Last Documented On 0 8:16AM ; [facility] Bipolar II disorder GENERAL OFFICE VISIT with ME JAIME DHALIWAL MD 08/31/2019 Last Documented On 0 8:16AM ; [facility] Generalized anxiety disorder GENERAL OFF ICE VISIT with FRANCINE DHALIWAL MD 08/31/2019 Last Documented On 0 8:16AM ; [facility] Major depression, recurrent GENERAL OFFI CE VISIT with FRANCINE DHALIWAL MD 08/31/2019 Last Documented On 0 8:16AM ; [facility] Nicotine dependence -- quit 07/2016 but started smoking again 12/2016 GENERAL OFFICE VISIT with FRANCINE DHALIWAL MD 08/31/2019 Last Documented On 0 8:16AM ; [facility] Obstructive sleep apnea GENERAL OFFICE VISIT wit h FRANCINE DHALIWAL MD 08/31/2019 Last Documented On 0 8:16AM ; [facility] Psychophysiological insomnia GENERAL OFF ICE VISIT with FRANCINE DHALIWAL MD 08/31/2019 Last Documented On 0 8:16AM ; [facility] Vitamin deficiency GENERAL OFFICE VISIT with MET LUCINA DHALIWAL MD 08/31/2019 Last Documented On 0 8:16AM ; [facility] Attention deficit disorder w ithout hyperactivity, predominantly inattentive type GENERAL OFFICE VISIT with FRANCINE DHALIWAL MD 04/13/2019 Last Documented On 0 8:47PM ; [facility] Bipolar II disorder GENERAL OFFICE VISIT with ME JAIME DHALIWAL MD 04/13/2019 Last Documented On 0 8:47PM ; [facility] Generalized anxiety disorder GENERAL OFF ICE VISIT with FRANCINE DHALIWAL MD 04/13/2019 Last Documented On 0 8:47PM ; [facility] Major depression, recurrent GENERAL OFFI CE VISIT with FRANCINE DHALIWAL MD 04/13/2019 Last Documented On 0 8:47PM ; [facility] Nicotine dependence -- quit 07/2016 but started smoking again 12/2016 GENERAL OFFICE VISIT with FRANCINE DHALIWAL MD 04/13/2019 Last Documented On 0 8:47PM ; [facility] Obstructive sleep apnea GENERAL OFFICE VISIT wit h FRANCINE DHALIWAL MD 04/13/2019 Last Documented On 0 8:47PM ; [facility] Psychophysiological insomnia GENERAL OFF ICE VISIT with FRANCINE DHALIWAL MD 04/13/2019 Last Documented On 0 8:47PM ; [facility] Vitamin deficiency GENERAL OFFICE VISIT with MET LUCINA DHALIWAL MD 04/13/2019 Last Documented On 0 8:47PM ; [facility] Nicotine dependence * PHONE CALL with FRANCINE DHALIWAL MD 10/22/2018 Last Documented On 9 4:10PM ; [facility] Bipolar II disorder GENERAL OFFICE VISIT with ME JAIME DHALIWAL MD 10/14/2018 Last Documented On 9 5:09PM ; [facility] Generalized anxiety disorder GENERAL OFF ICE VISIT with FRANCINE DHALIWAL MD 10/14/2018 Last Documented On 9 5:09PM ; [facility] Major depression, recurrent GENERAL OFFI CE VISIT with FRANCINE DHALIWAL MD 10/14/2018 Last Documented On 9 5:09PM ; [facility] Nicotine dependence -- quit 07/2016 but started smoking again 12/2016 GENERAL OFFICE VISIT with FRANCINE DHALIWAL MD 10/14/2018 Last Documented On 9 5:09PM ; [facility] Psychophysiological insomnia GENERAL OFF ICE VISIT with FRANCINE DHALIWAL MD 10/14/2018 Last Documented On 9 5:09PM ; [facility] Vitamin deficiency GENERAL OFFICE VISIT with MET LUCINA DHALIWAL MD 10/14/2018 Last Documented On 9 5:09PM ; [facility] Bipolar II disorder GENERAL OFFICE VISIT with ME JAIME DHALIWAL MD 04/24/2018 Last Documented On 9 3:27AM ; [facility] Generalized anxiety disorder GENERAL OFF ICE VISIT with FRANCINE DHALIWAL MD 04/24/2018 Last Documented On 9 3:27AM ; [facility] Major depression, recurrent GENERAL OFFI CE VISIT with FRANCINE DHALIWAL MD 04/24/2018 Last Documented On 9 3:27AM ; [facility] Nicotine dependence -- quit 07/2016 but started smoking again 12/2016 GENERAL OFFICE VISIT with FRANCINE DHALIWAL MD 04/24/2018 Last Documented On 9 3:27AM ; [facility] Psychophysiological insomnia GENERAL OFF ICE VISIT with FRANCINE DHALIWAL MD 04/24/2018 Last Documented On 9 3:27AM ; [facility] Vitamin deficiency GENERAL OFFICE VISIT with MET LUCINA DHALIWAL MD 04/24/2018 Last Documented On 9 3:27AM ; [facility] Vitamin deficiency -- Vitami n D deficiency * PHONE CALL with FRANCINE DHALIWAL MD 03/11/2018 Last Documented On 9 4:16PM ; [facility] Attention deficit disorder w ithout hyperactivity, predominantly inattentive type * PHONE CALL with FRANCINE DHALIWAL MD 01/08/2018 Last Documented On 8 3:16PM ; [facility] Bipolar II disorder GENERAL OFFICE VISIT with ME JAIME DHALIWAL MD 12/30/2017 Last Documented On 8 6:29PM ; [facility] Generalized anxiety disorder GENERAL OFF ICE VISIT with FRANCINE DHALIWAL MD 12/30/2017 Last Documented On 8 6:29PM ; [facility] Major depression, recurrent GENERAL OFFI CE VISIT with FRANCINE DHALIWAL MD 12/30/2017 Last Documented On 8 6:29PM ; [facility] Nic[place] dependence -- [place] -- quit 07/2016 but started smoking again 12/2016 GENERAL OFFICE VISIT with FRANCINE DHALIWAL MD 12/30/2017 Last Documented On 8 6:29PM ; [facility] Psychophysiological insomnia GENERAL OFF ICE VISIT with FRANCINE DHALIWAL MD 12/30/2017 Last Documented On 8 6:29PM ; [facility] Vitamin deficiency GENERAL OFFICE VISIT with MET LUCINA DHALIWAL MD 12/30/2017 Last Documented On 8 6:29PM ; [facility] Bipolar II disorder GENERAL OFFICE VISIT with ME JAIME DHALIWAL MD 12/19/2016 Last Documented On 7 10:40AM ; [facility] Generalized anxiety disorder GENERAL OFF ICE VISIT with FRANCINE DHALIWAL MD 12/19/2016 Last Documented On 7 10:40AM ; [facility] Major depression, recurrent GENERAL OFFI CE VISIT with FRANCINE DHALIWAL MD 12/19/2016 Last Documented On 7 10:40AM ; [facility] Nicotine dependence -- [place] -- quit 07/2016 GENERAL OFFICE VISIT with FRANCINE DHALIWAL MD 12/19/2016 Last Documented On 7 10:40AM ; [facility] Obsessive compulsive disorder GENERAL OF FICE VISIT with FRANCINE DHALIWAL MD 12/19/2016 Last Documented On 7 10:40AM ; [facility] Psychophysiological insomnia GENERAL OFF ICE VISIT with FRANCINE DHALIWAL MD 12/19/2016 Last Documented On 7 10:40AM ; [facility] Bipolar II disorder GENERAL OFFICE VISIT with ME JAIME DHALIWAL MD 07/12/2016 Last Documented On 7 10:12PM ; [facility] Generalized anxiety disorder GENERAL OFF ICE VISIT with FRANCINE DHALIWAL MD 07/12/2016 Last Documented On 7 10:12PM ; [facility] Major depression, recurrent GENERAL OFFI CE VISIT with FRANCINE DHALIWAL MD 07/12/2016 Last Documented On 7 10:12PM ; [facility] Nicotine dependence GENERAL OFFICE VISIT with ME JAIME DHALIWAL MD 07/12/2016 Last Documented On 7 10:12PM ; [facility] Obsessive compulsive disorder GENERAL OF FICE VISIT with FRANCINE DHALIWAL MD 07/12/2016 Last Documented On 7 10:12PM ; [facility] Psychophysiological insomnia GENERAL OFF ICE VISIT with FRANCINE DHALIWAL MD 07/12/2016 Last Documented On 7 10:12PM ; [facility] Bipolar II disorder GENERAL OFFICE VISIT with ME JAIME DHALIWAL MD 03/08/2016 Last Documented On 7 2:18AM ; [facility] Generalized anxiety disorder GENERAL OFF ICE VISIT with FRANCINE DHALIWAL MD 03/08/2016 Last Documented On 7 2:18AM ; [facility] Major depression, recurrent GENERAL OFFI CE VISIT with FRANCINE DHALIWAL MD 03/08/2016 Last Documented On 7 2:18AM ; [facility] Nicotine dependence GENERAL OFFICE VISIT with ME JAIME DHALIWAL MD 03/08/2016 Last Documented On 7 2:18AM ; [facility] Obsessive compulsive disorder GENERAL OF FICE VISIT with FRANCINE DHALIWAL MD 03/08/2016 Last Documented On 7 2:18AM ; [facility] Psychophysiological insomnia GENERAL OFF ICE VISIT with FRANCINE DHALIWAL MD 03/08/2016 Last Documented On 7 2:18AM ; [facility] Bipolar II disorder GENERAL OFFICE VISIT with ME JAIME DHALIWAL MD 08/11/2015 Last Documented On 6 5:41PM ; [facility] Generalized anxiety disorder GENERAL OFF ICE VISIT with FRANCINE DHALIWAL MD 08/11/2015 Last Documented On 6 5:41PM ; [facility] Major depression, recurrent GENERAL OFFI CE VISIT with FRANCINE DHALIWAL MD 08/11/2015 Last Documented On 6 5:41PM ; [facility] Obsessive compulsive disorder GENERAL OF FICE VISIT with FRANCINE DHALIWAL MD 08/11/2015 Last Documented On 6 5:41PM ; [facility] Persistent insomnia GENERAL OFFICE VISIT with ME JAIME DHALIWAL MD 08/11/2015 Last Documented On 6 5:41PM ; [facility] Bipolar II disorder GENERAL OFFICE VISIT with ME JAIME DHALIWAL MD 03/09/2015 Last Documented On 6 9:39PM ; [facility] Generalized anxiety disorder GENERAL OFF ICE VISIT with FRANCINE DHALIWAL MD 03/09/2015 Last Documented On 6 9:39PM ; [facility] Major depression, recurrent GENERAL OFFI CE VISIT with FRANCINE DHALIWAL MD 03/09/2015 Last Documented On 6 9:39PM ; [facility] Obsessive compulsive disorder GENERAL OF FICE VISIT with FRANCINE DHALIWAL MD 03/09/2015 Last Documented On 6 9:39PM ; [facility] Persistent insomnia GENERAL OFFICE VISIT with ME JAIME DHALIWAL MD 03/09/2015 Last Documented On 6 9:39PM ; [facility] Bipolar II disorder GENERAL OFFICE VISIT with ME JAIME DHALIWAL MD 12/09/2014 Last Documented On 5 7:56AM ; [facility] Generalized anxiety disorder GENERAL OFF ICE VISIT with FRANCINE DHALIWAL MD 12/09/2014 Last Documented On 5 7:56AM ; [facility] Major depression, recurrent GENERAL OFFI CE VISIT with FRANCINE DHALIWAL MD 12/09/2014 Last Documented On 5 7:56AM ; [facility] Obsessive compulsive disorder GENERAL OF FICE VISIT with FRANCINE DHALIWAL MD 12/09/2014 Last Documented On 5 7:56AM ; [facility] Persistent insomnia GENERAL OFFICE VISIT with ME JAIME DHALIWAL MD 12/09/2014 Last Documented On 5 7:56AM ; [facility] Bipolar II disorder GENERAL OFFICE VISIT with ME JAIME DHALIWAL MD 09/09/2014 Last Documented On 5 7:57PM ; [facility] Generalized anxiety disorder GENERAL OFF ICE VISIT with FRANCINE DHALIWAL MD 09/09/2014 Last Documented On 5 7:57PM ; [facility] Major depression, recurrent GENERAL OFFI CE VISIT with FRANCINE DHALIWAL MD 09/09/2014 Last Documented On 5 7:57PM ; [facility] Obsessive compulsive disorder GENERAL OF FICE VISIT with FRANCINE DHALIWAL MD 09/09/2014 Last Documented On 5 7:57PM ; [facility] Persistent insomnia GENERAL OFFICE VISIT with ME JAIME DHALIWAL MD 09/09/2014 Last Documented On 5 7:57PM ; [facility] Nicotine dependence * PHONE CALL with FRANCINE DHALIWAL MD 05/27/2014 Last Documented On 5 5:34PM ; [facility] Bipolar II disorder GENERAL OFFICE VISIT with ME JAIME DHALIWAL MD 05/13/2014 Last Documented On 5 3:08PM ; [facility] Generalized anxiety disorder GENERAL OFF ICE VISIT with FRANCINE DHALIWAL MD 05/13/2014 Last Documented On 5 3:08PM ; [facility] Major depression, recurrent GENERAL OFFI CE VISIT with FRANCINE DHALIWAL MD 05/13/2014 Last Documented On 5 3:08PM ; [facility] Obsessive compulsive disorder GENERAL OF FICE VISIT with FRANCINE DHALIWAL MD 05/13/2014 Last Documented On 5 3:08PM ; [facility] Persistent insomnia GENERAL OFFICE VISIT with ME JAIME DHALIWAL MD 05/13/2014 Last Documented On 5 3:08PM ; [facility] Bipolar II disorder GENERAL OFFICE VISIT with ME JAIME DHALIWAL MD 02/07/2014 Last Documented On 4 7:21PM ; [facility] Generalized anxiety disorder GENERAL OFF ICE VISIT with FRANCINE DHALIWAL MD 02/07/2014 Last Documented On 4 7:21PM ; [facility] Major depression, recurrent GENERAL OFFI CE VISIT with FRANCINE DHALIWAL MD 02/07/2014 Last Documented On 4 7:21PM ; [facility] Obsessive compulsive disorder GENERAL OF FICE VISIT with FRANCINE DHALIWAL MD 02/07/2014 Last Documented On 4 7:21PM ; [facility] Persistent insomnia GENERAL OFFICE VISIT with ME JAIME DHALIWAL MD 02/07/2014 Last Documented On 4 7:21PM ; [facility] Bipolar II disorder NEW PATIENT VISIT with ANDRE DHALIWAL MD 01/05/2014 Last Documented On 4 4:48PM ; [facility] Generalized anxiety disorder NEW PATIENT VISIT w ith FRANCINE DHALIWAL MD 01/05/2014 Last Documented On 4 4:48PM ; [facility] Major depression, recurrent NEW PATIENT VISIT wi th FRANCINE DHALIWAL MD 01/05/2014 Last Documented On 4 4:48PM ; [facility] Obsessive compulsive disorder NEW PATIEN T VISIT with FRACNINE DHALIWAL MD 01/05/2014 Last Documented On 4 4:48PM ; [facility] Persistent insomnia NEW PATIENT VISIT with ANDRE DHALIWAL MD 01/05/2014 Last Documented On 4 4:48PM ; [facility] Instructions Includes: Instructions for all patient encounters Instructions to patient Lose weight - continue porti on control, balanced diet Last Documented On 2 8:33AM ; [facility] Lose weight - balanced meals Last Documented On 2 10:08AM ; [facility] Intervention and counseling on cessation of tobacco use Last Documented On 1 5:09PM ; [facility] Lose weight - portion contro l Last Documented On 2 8:47AM ; [facility] Lose weight Last Documented On 1 5:19PM ; [facility] Lose weight Last Documented On 1 4:50PM ; [facility] Intervention and counseling on cessation of tobacco use Last Documented On 1 5:26PM ; [facility] Intervention and counseling on cessation of tobacco use Last Documented On 0 4:41PM ; [facility] Lose weight Last Documented On 0 4:41PM ; [facility] Intervention and counseling on cessation of tobacco use Last Documented On 0 10:12AM ; [facility] Intervention and counseling on cessation of tobacco use Last Documented On 9 3:22PM ; [facility] Intervention and counseling on cessation of tobacco use Last Documented On 9 9:06AM ; [facility] Intervention and counseling on cessation of tobacco use Last Documented On 8 10:24AM ; [facility] Education and Decision Aids were provided during visit for: Discussed calming techniques such as breathing exercises and other relaxation techniques Last Documented On 3 5:03PM ; [facility] Discussed good sleep hygiene habits Last Documented On 3 5:16PM ; [facility] Patient education about medi cation ---Education was given on medication(s) and diagnosis. I reviewed the risks, benefits and side effects of patient's medications Last Documented On 2 4:33PM ; [facility] Discussed calming techniques such as breathing exercises and other relaxation techniques Last Documented On 2 4:33PM ; [facility] Discussed good sleep hygiene habits Last Documented On 2 4:41PM ; [facility] Patient education about medi cation ---Education was given on medication(s) and diagnosis. I reviewed the risks, benefits and side effects of patient's medications Last Documented On 2 4:34PM ; [facility] Discussed calming techniques such as breathing exercises and other relaxation techniques Last Documented On 2 4:34PM ; [facility] Patient counseling I discuss ed risk, benefits, and side effects of sleep aid - Belsomra including the possibility of sleep related behaviors i.e. sleepwalking, sleeptalking, sleepdriving, etc... Pt verbalized understanding Last Documented On 2 7:40AM ; [facility] Discussed good sleep hygiene habits Last Documented On 2 4:45PM ; [facility] Patient education about medi cation --- I educated patient on medication(s) and diagnosis. I reviewed the risks, benefits and side effects of patient's medications Last Documented On 2 4:38PM ; [facility] Discussed calming techniques such as breathing exercises and other relaxation techniques Last Documented On 2 4:38PM ; [facility] Patient education about medi cation --- I educated patient on medication(s) and diagnosis. I reviewed the risks, benefits and side effects of patient's medications Last Documented On 2 4:40PM ; [facility] Discussed calming techniques such as breathing exercises and other relaxation techniques Last Documented On 2 4:40PM ; [facility] Counseling for nutrition/leigha ght management provided Last Documented On 2 4:43PM ; [facility] Patient education about medi cation --- I educated patient on medication(s) and diagnosis. I reviewed the risks, benefits and side effects of patient's medications Last Documented On 1 5:06PM ; [facility] Discussed calming techniques such as breathing exercises and other relaxation techniques Last Documented On 1 5:06PM ; [facility] Counseling for nutrition/leigha ght management provided Last Documented On 1 5:08PM ; [facility] Discussed good sleep hygiene habits Last Documented On 2 8:47AM ; [facility] Patient education about medi cation --- I educated patient on medication(s) and diagnosis. I reviewed the risks, benefits and side effects of patient's medications Last Documented On 1 5:06PM ; [facility] Discussed calming techniques such as breathing exercises and other relaxation techniques Last Documented On 1 5:06PM ; [facility] Counseling for nutrition/leigha ght management provided Last Documented On 1 5:19PM ; [facility] Discussed good sleep hygiene habits Last Documented On 1 5:19PM ; [facility] Patient education about medi cation --- I educated patient on medication(s) and diagnosis. I reviewed the risks, benefits and side effects of patient's medications Last Documented On 1 4:34PM ; [facility] Discussed calming techniques such as breathing exercises and other relaxation techniques Last Documented On 1 4:34PM ; [facility] Counseling for nutrition/leigha ght management provided Last Documented On 1 4:50PM ; [facility] Discussed good sleep hygiene habits Last Documented On 1 4:50PM ; [facility] Patient education about medi cation --- I educated patient on medication(s) and diagnosis. I reviewed the risks, benefits and side effects of patient's medications Last Documented On 1 5:15PM ; [facility] Discussed calming techniques such as breathing exercises and other relaxation techniques Last Documented On 1 5:15PM ; [facility] Counseling for nutrition/leigha ght management provided Last Documented On 1 5:26PM ; [facility] Patient education about medi cation --- I educated patient on medication(s) and diagnosis. I reviewed the risks, benefits and side effects of patient's medications Last Documented On 0 4:29PM ; [facility] Discussed calming techniques such as breathing exercises and other relaxation techniques Last Documented On 0 4:29PM ; [facility] Counseling for nutrition/leigha ght management provided Last Documented On 0 4:41PM ; [facility] Patient education about a pr oper diet Last Documented On 0 10:12AM ; [facility] Patient education about medi cation --- I educated patient on medication(s) and diagnosis. I reviewed the risks, benefits and side effects of patient's medications Last Documented On 0 10:01AM ; [facility] Discussed calming techniques such as breathing exercises and other relaxation techniques Last Documented On 0 10:01AM ; [facility] Counseling for nutrition/leigha ght management provided Last Documented On 0 10:12AM ; [facility] Discussed good sleep hygiene habits Last Documented On 0 8:42PM ; [facility] Patient education about a pr oper diet Last Documented On 9 3:22PM ; [facility] Patient education about medi cation --- I educated patient on medication(s) and diagnosis. I reviewed the risks, benefits and side effects of patient's medications Last Documented On 9 3:07PM ; [facility] Discussed calming techniques such as breathing exercises and other relaxation techniques Last Documented On 9 3:07PM ; [facility] Counseling for nutrition/leigha ght management provided Last Documented On 9 3:22PM ; [facility] Patient education about a pr oper diet Last Documented On 9 9:06AM ; [facility] Patient education about medi cation --- I educated patient on medication(s) and diagnosis. I reviewed the risks, benefits and side effects of patient's medications Last Documented On 9 9:00AM ; [facility] Discussed calming techniques such as breathing exercises and other relaxation techniques Last Documented On 9 9:00AM ; [facility] Counseling for nutrition/leigha ght management provided Last Documented On 9 9:06AM ; [facility] Patient education about a pr oper diet Last Documented On 8 10:24AM ; [facility] Patient education about medi cation --- I educated patient on medication(s) and diagnosis. I reviewed the risks, benefits and side effects of patient's medications Last Documented On 8 10:21AM ; [facility] Counseling for nutrition/leigha ght management provided Last Documented On 8 10:24AM ; [facility] Patient education about medi cation --- I educated patient on medication(s) and diagnosis. I reviewed the risks, benefits and side effects of patient's medications Last Documented On 7 4:30PM ; [facility] Discussed calming techniques such as breathing exercises and other relaxation techniques Last Documented On 7 4:30PM ; [facility] Counseling for nutrition/leigha ght management provided Last Documented On 7 10:40AM ; [facility] Patient education about medi cation --- I educated patient on medication(s) and diagnosis. I reviewed the risks, benefits and side effects of patient's medications Last Documented On 7 1:59PM ; [facility] Discussed calming techniques such as breathing exercises and other relaxation techniques Last Documented On 7 1:59PM ; [facility] Counseling for nutrition/leigha ght management provided Last Documented On 7 10:00PM ; [facility] Patient education about medi cation --- I educated patient on medication(s) and diagnosis. I reviewed the risks, benefits and side effects of patient's medications Last Documented On 7 4:30PM ; [facility] Discussed calming techniques such as breathing exercises/meditation and other relaxation techniques Last Documented On 7 4:30PM ; [facility] Counseling for nutrition/leigha ght management provided Last Documented On 7 2:16AM ; [facility] Discussed good sleep hygiene habits Last Documented On 7 2:16AM ; [facility] Patient education about medi cation --- I educated patient on medication(s) and diagnosis. I reviewed the risks, benefits and side effects of patient's medications Last Documented On 6 9:01AM ; [facility] Discussed calming techniques such as breathing exercises/meditation and other relaxation techniques Last Documented On 6 9:01AM ; [facility] Counseling for nutrition/leigha ght management provided Last Documented On 6 5:36PM ; [facility] Patient education about medi cation --- I educated patient on medication(s) and diagnosis. I reviewed the risks, benefits and side effects of patient's medications Last Documented On 6 1:19PM ; [facility] Discussed calming techniques such as breathing exercises/meditation and other relaxation techniques Last Documented On 6 1:19PM ; [facility] Counseling for nutrition/leigha ght management provided Last Documented On 6 9:37PM ; [facility] Patient education about medi cation --- I educated patient on medication(s) and diagnosis. I reviewed the risks, benefits and side effects of patient's medications.--Cialis Last Documented On 5 7:53AM ; [facility] Discussed calming techniques such as breathing exercises/meditation and other relaxation techniques Last Documented On 5 1:24PM ; [facility] Counseling for nutrition/leigha ght management provided Last Documented On 5 7:45AM ; [facility] Patient education about medi cation --- I educated patient on medication(s) and diagnosis. I reviewed the risks, benefits and side effects of patient's medications Last Documented On 5 7:56PM ; [facility] Discussed calming techniques such as breathing exercises/meditation and other relaxation techniques Last Documented On 5 9:55AM ; [facility] Counseling for nutrition/leigha ght management provided Last Documented On 5 7:56PM ; [facility] Patient education about medi cation --- I educated patient on medication(s) and diagnosis. I reviewed the risks, benefits and side effects of patient's medications Last Documented On 5 3:06PM ; [facility] Discussed calming techniques such as breathing exercises/meditation and other relaxation techniques Last Documented On 5 2:09PM ; [facility] Counseling for nutrition/leigha ght management provided Last Documented On 5 3:06PM ; [facility] Patient education about medi cation --- I educated patient on medication(s) and diagnosis. I reviewed the risks, benefits and side effects of patient's medications including Lamictal and Viibryd --was given P.I. and discount coupon. So far no rash on Lamictal Last Documented On 4 7:18PM ; [facility] Discussed calming techniques such as breathing exercises/meditation and other relaxation techniques Last Documented On 4 4:44PM ; [facility] Counseling for nutrition/leigha ght management provided Last Documented On 4 7:12PM ; [facility] Patient education about medi cation --- I educated patient on medication(s) and diagnosis. I reviewed the risks, benefits and side effects of patient's medications. Patient was given a package insert and samples for Viibryd Last Documented On 4 1:22AM ; [facility] Discussed calming techniques such as breathing exercises/meditation and other relaxation techniques Last Documented On 4 9:54AM ; [facility] Medical Equipment - Implanted Devices Includes: Current and historical Devices No Medical Equipment Recorded Medications Includes: Current and historical Medications Current Medications (continue as prescribed) QUEtiapine Fumarate 25 MG Oral Tablet 05/06/2022 Pro vider: Diagnosis: 1 tab at bedtime as needed Last Documented On 05/06/2022 5:13PM By MAXIMO EVANS ; [facility] Focalin 10 MG Oral Tablet 05/06/2022 Provider: FRANCINE DHALIWAL MD Diagnosis: Attn-defct hyper activity disorder, predom inattentive type as directed -- 1 tab in am a nd 1 tab at 12 noon Last Documented On 05/06/2022 6:08PM By Randi Dhaliwal MD ; [facility] Azstarys 52.3-10.4 MG Oral Capsule 05/06/2022 Provider: FRANCINE DHALIWAL MD Diagnosis: Attn-defct hyper activity disorder, predom inattentive type 1 Capsule every morning Last Documented On 05/06/2022 6:08PM By Randi Dhaliwal MD ; [facility] HYDROcodone-Acetaminophen 7. 5-325 MG Oral Tablet 01/07/2022 Provider: JEAN RODRIGUEZ MD Diagnosis: 1 - 3 times daily as needed 01/07/22 Last Documented On 02/06/2022 4:45PM By JIOE ARCHIBALD ; [facility] Vilazodone HCl 40 MG Oral Tablet 11/28/2021 Provider: FRANCINE DHALIWAL MD Diagnosis: Major depressive disorder, recurrent, moderate 1 tablet every morning with food Last Documented On 10:16AM By Randi Dhaliwal MD ; [facility] Vitamin D (Ergocalciferol) 1.25 MG (45003 UT) Oral Capsule 11/22/2021 Provider: FRANCINE DHALIWAL MD Diagnosis: Vitamin D defici ency, unspecified TAKE 1 CAPSULE BY MOUTH ONCE A WEEK Last Documented On 11/22/2021 8:08AM By Randi Dhaliwal MD ; [facility] Belsomra 10 MG Oral Tablet 10/31/2021 Provider: FRANCINE DHALIWAL MD Diagnosis: Psychophysiologi c insomnia One tablet at bed time Last Documented On 10/31/2021 5:17PM By Randi Dhaliwal MD ; [facility] Vilazodone HCl 20 MG Oral Tablet 10/31/2021 Provider: FRANCINE DHALIWAL MD Diagnosis: Major depressive disorder, recurrent, moderate 1 tablet every morning with food Last Documented On 10/31/2021 5:17PM By Randi Dhaliwal MD ; [facility] Sildenafil Citrate 20 MG Oral Tablet 09/12/2020 Provider: FRANCINE DHALIWAL MD Diagnosis: Male erectile di sorder as directed -- 1 tab a day a s needed only Last Documented On 09/12/2020 6:09PM By Randi Dhaliwal MD ; [facility] Cyclobenzaprine HCl 10 MG Oral Tablet 07/28/2018 Pro vider: JEAN RODRIGUEZ MD Diagnosis: 1 tab prn Last Documented On 10/14/2018 3:12PM By MAXIMO EVANS ; [facility] Suspended Medications lamoTRIgine 150 MG Oral Tablet 04/24/2022 Provider: FRANCINE DHALIWAL MD Diagnosis: Bipolar II disor jason TAKE 1 TABLET BY MOUTH TWICE A DAY Last Documented On 12:08PM By Randi Dhaliwal MD ; [facility] Past Medications on file Focalin 10 MG Oral Tablet 04/09/2022 - 05/06/2022 Provider: FRANCINE DHALIWAL MD Diagnosis: Attn-defct hyper activity disorder, predom inattentive type as directed -- 1 tab in am a nd 1 tab at 12 noon Last Documented On 05/06/2022 6:04PM By Randi Dhalwial MD ; [facility] Azstarys 52.3-10.4 MG Oral Capsule 04/08/2022 - 05/06/2022 Provider: FRANCINE DHALIWAL MD Diagnosis: Attn-defct hyper activity disorder, predom inattentive type 1 Capsule every morning Last Documented On 05/06/2022 6:03PM By Randi Dhaliwal MD ; [facility] Focalin 10 MG Oral Tablet 03/11/2022 - 03/11/2022 Provider: FRANCINE DHALIWAL MD Diagnosis: Attn-defct hyper activity disorder, predom inattentive type as directed -- 1 tab in am a nd 1 tab at 12 noon Last Documented On 03/11/2022 3:08PM By Randi Dhaliwal MD ; [facility] Focalin 10 MG Oral Tablet 03/11/2022 - 04/09/2022 Provider: FRANCINE DHALIWAL MD Diagnosis: Attn-defct hyper activity disorder, predom inattentive type as directed -- 1 tab in am a nd 1 tab at 12 noon Last Documented On 04/09/2022 2:38PM By Randi Dhaliwal MD ; [facility] Azstarys 52.3-10.4 MG Oral Capsule 03/05/2022 - 04/08/2022 Provider: FRANCINE DHALIWAL MD Diagnosis: Attn-defct hyper activity disorder, predom inattentive type 1 Capsule every morning Last Documented On 04/08/2022 1:13PM By Randi Dhaliwal MD ; [facility] Azstarys 39.2-7.8 MG Oral Capsule 02/07/2022 - 03/09/2022 Provider: FRANCINE DHALIWAL MD Diagnosis: Attn-defct hyper activity disorder, predom inattentive type 1 Capsule every morning Last Documented On 02/07/2022 3:04PM By Randi Dhaliwal MD ; [facility] Focalin 10 MG Oral Tablet 02/06/2022 - 03/11/2022 Provider: FRANCINE DHALIWAL MD Diagnosis: Attn-defct hyper activity disorder, predom inattentive type as directed -- 1 tab in am a nd 1 tab at 12 noon Last Documented On 03/11/2022 2:35PM By Randi Dhaliwal MD ; [facility] lamoTRIgine 150 MG Oral Tablet 01/23/2022 - 04/24/2022 Provider: FRANCINE DHALIWAL MD Diagnosis: Bipolar II disor jason TAKE 1 TABLET BY MOUTH TWICE A DAY Last Documented On 11:56AM By Randi Dhaliwal MD ; [facility] Focalin 10 MG Oral Tablet 01/09/2022 - 02/06/2022 Provider: FRANCINE DHALIWAL MD Diagnosis: Attn-defct hyper activity disorder, predom inattentive type as directed -- 1 tab in am a nd 1 tab at 12 noon Last Documented On 02/06/2022 5:30PM By Randi Dhaliwal MD ; [facility] Focalin 10 MG Oral Tablet 12/10/2021 - 01/09/2022 Provider: FRANCINE DHALIWAL MD Diagnosis: Attn-defct hyper activity disorder, predom inattentive type as directed -- 1 tab in am a nd 1 tab at 12 noon Last Documented On 01/09/2022 2:46PM By Randi Dhaliwal MD ; [facility] Focalin 10 MG Oral Tablet 11/09/2021 - 12/10/2021 Provider: FRANCINE DHALIWAL MD Diagnosis: Attn-defct hyper activity disorder, predom inattentive type as directed -- 1 tab in am a nd 1 tab at 12 noon Last Documented On 12/10/2021 5:35PM By Randi Dhaliwal MD ; [facility] Focalin 10 MG Oral Tablet 10/09/2021 - 11/09/2021 Provider: FRANCINE DHALIWAL MD Diagnosis: Attn-defct hyper activity disorder, predom inattentive type as directed -- 1 tab in am a nd 1 tab at 12 noon Last Documented On 11/09/2021 4:59PM By Randi Dhaliwal MD ; [facility] Focalin 10 MG Oral Tablet 09/13/2021 - 10/09/2021 Provider: FRANCINE DHALIWAL MD Diagnosis: Attn-defct hyper activity disorder, predom inattentive type as directed -- 1 tab in am a nd 1 tab at 12 noon Last Documented On 10/09/2021 2:59PM By Randi Dhaliwal MD ; [facility] Focalin 10 MG Oral Tablet 08/14/2021 - 09/13/2021 Provider: FRANCINE DHALIWAL MD Diagnosis: Attn-defct hyper activity disorder, predom inattentive type as directed -- 1 tab in am a nd 1 tab at 12 noon Last Documented On 09/13/2021 5:02PM By Randi Dhaliwal MD ; [facility] lamoTRIgine 150 MG Oral Tablet 07/16/2021 - 01/23/2022 Provider: FRANCINE DHALIWAL MD Diagnosis: Bipolar II disor jason One tablet twice a day Last Documented On 11:55AM By Randi Dhaliwal MD ; [facility] Focalin 10 MG Oral Tablet 07/10/2021 - 08/14/2021 Provider: FRANCINE DHALIWAL MD Diagnosis: Attn-defct hyper activity disorder, predom inattentive type as directed -- 1 tab in am a nd 1 tab at 12 noon Last Documented On 08/14/2021 2:25PM By Randi Dhaliwal MD ; [facility] Focalin 10 MG Oral Tablet 06/06/2021 - 07/10/2021 Provider: FRANCINE DHALIWAL MD Diagnosis: Attn-defct hyper activity disorder, predom inattentive type as directed -- 1 tab in am a nd 1 tab at 12 noon Last Documented On 07/10/2021 5:04PM By Randi Dhaliwal MD ; [facility] lamoTRIgine 200 MG Oral Tablet 05/03/2021 - 08/21/2021 Provider: FRANCINE DHALIWAL MD Diagnosis: Bipolar II disor jason TAKE 1 TABLET BY MOUTH EVERY DAY Last Documented On 08/21/2021 8:34AM By Randi Dhaliwal MD ; [facility] Trintellix 20 MG Oral Tablet 05/03/2021 - 07/16/2021 Provider: FRANCINE DHALIWAL MD Diagnosis: Major depressive disorder, recurrent, moderate One tablet daily Last Documented On 07/16/2021 4:46PM By JOIE ARCHIBALD ; [facility] Focalin 10 MG Oral Tablet 05/03/2021 - 06/06/2021 Provider: FRANCINE DHALIWAL MD Diagnosis: Attn-defct hyper activity disorder, predom inattentive type as directed -- 1 tab in am a nd 1 tab at 12 noon Last Documented On 06/06/2021 5:02PM By Randi Dhaliwal MD ; [facility] HYDROcodone-Acetaminophen 10-325 MG Oral Tablet 05/02/2021 - 02/06/2022 Provider: Diagnosis: 1-3 times daily as needed #8 4 #903/01/01, 03/20/21, 02/18/21, 01/15/21, 12/14/20, 11/16/20, 10/12/20, 09/13/20, 08/16/20, 07/20/20, 06/20/20, 05/19/20, 04/18/20, 03/22/20, 02/21/20, 01/24/20, 09/30/19, , 08/10/19, 07/11/19, 06/13/19, 05/16/19, 04/19/19, 03/23/19, 02/24/19, 01/25/19, 12/28/18, 11/23/18 Last Documented On 02/06/2022 4:45PM By JOIE ARCHIBALD ; [facility] Focalin 10 MG Oral Tablet 03/30/2021 - 05/03/2021 Provider: FRANCINE DHALIWAL MD Diagnosis: Attn-defct hyper activity disorder, predom inattentive type as directed -- 1 tab in am a nd 1 tab at 1 pm Last Documented On 05/03/2021 5:07PM By Randi Dhaliwal MD ; [facility] Trintellix 10 MG Oral Tablet 03/13/2021 - 05/03/2021 Provider: FRANCINE DHALIWAL MD Diagnosis: Major depressive disorder, recurrent, moderate One tablet daily Last Documented On 05/03/2021 5:02PM By Randi Dhaliwal MD ; [facility] Dexmethylphenidate HCl 10 MG Oral Tablet 03/13/2021 - 03/30/2021 Provider: FRANCINE DHALIWAL MD Diagnosis: Attn-defct hyperactivity disorder, predom inattentive type 1 tablet every morning Last Documented On 03/30/2021 2:50PM By Randi Dhaliwal MD ; [facility] Focalin 10 MG Oral Tablet 02/05/2021 - 03/30/2021 Prov ider: FRANCINE DHALIWAL MD Diagnosis: as directed -- 1 tab in am and 1 tab at 1 pm Last Documented On 03/30/2021 2:49PM By Randi Dhaliwal MD ; [facility] Viibryd 40 MG Oral Tablet 01/10/2021 - 05/03/2021 Provider: FRANCINE MARTINEZ MD Diagnosis: Major depressive disorder, recurrent, moderate 1 tablet every morning with food Last Documented On 05/03/2021 4:49PM By JOIE ARCHIBALD ; [facility] HYDROcodone-Acetaminophen 10-325 MG Oral Tablet 01/09/2021 - 05/02/2021 Provider: Diagnosis: 1-3 times daily as needed #8 4 #90 12/14/20, 11/16/20, 10/12/20, 09/13/20, 08/16/20, 07/20/20, 06/20/20, 05/19/20, 04/18/20, 03/22/20, 02/21/20, 01/24/20, 09/30/19, , 08/10/19, 07/11/19, 06/13/19, 05/16/19, 04/19/19, 03/23/19, 02/24/19, 01/25/19, 12/28/18, 11/23/18 Last Documented On 05/02/2021 2:13PM By MAXIMO EVANS ; [facility] Focalin 10 MG Oral Tablet 12/27/2020 - 02/05/2021 Prov ider: FRANCINE DHALIWAL MD Diagnosis: as directed -- 1 tab in am and 1 tab at 1 pm Last Documented On 11:51AM By Randi Dhaliwal MD ; [facility] Focalin 10 MG Oral Tablet 11/23/2020 - 12/27/2020 Prov ider: FRANCINE DHALIWAL MD Diagnosis: as directed -- 1 tab in am and 1 tab at 1 pm Last Documented On 12/27/2020 3:42PM By Randi Dhaliwal MD ; [facility] Vitamin D (Ergocalciferol) 1.25 MG ([id number] UT) Oral Capsule 11/08/2020 - 11/22/2021 Provider: FRANCINE DHALIWAL MD Diagnosis: Vitamin D defici ency, unspecified as directed -- once a week Last Documented On 11/22/2021 8:04AM By Randi Dhaliwal MD ; [facility] HYDROcodone-Acetaminophen 10-325 MG Oral Tablet 11/07/2020 - 01/09/2021 Provider: Diagnosis: 1-3 times daily as needed #8 4 #90 10/12/20, 09/13/20, 08/16/20, 07/20/20, 06/20/20, 05/19/20, 04/18/20, 03/22/20, 02/21/20, 01/24/20, 09/30/19, , 08/10/19, 07/11/19, 06/13/19, 05/16/19, 04/19/19, 03/23/19, 02/24/19, 01/25/19, 12/28/18, 11/23/18 Last Documented On 01/09/2021 4:15PM By MAXIMO EVANS ; [facility] lamoTRIgine 200 MG Oral Tablet 11/03/2020 - 05/03/2021 Provider: FRANCINE DHALIWAL MD Diagnosis: Bipolar II disor jason One tablet daily Last Documented On 05/03/2021 1:47PM By Randi Dhaliwal MD ; [facility] lamoTRIgine 200 MG Oral Tablet 11/03/2020 - 11/08/2020 Provider: Diagnosis: Bipolar II disor jason 1 tab daily Last Documented On 11/08/2020 5:18PM By MAXIMO EVANS ; [facility] Focalin 10 MG Oral Tablet 10/17/2020 - 11/23/2020 Prov ider: FRANCINE DHALIWAL MD Diagnosis: as directed -- 1 tab in am and 1 tab at 1 pm Last Documented On 11/23/2020 5:27PM By Randi Dhaliwal MD ; [facility] Rexulti 1 MG Oral Tablet 10/17/2020 - 11/08/2020 Provider: FRANCINE DHALIWAL MD Diagnosis: Major depressive disorder, recurrent, moderate as directed - 1/2 tab a day for 1 week then 1 tab a day thereafter Last Documented On 11/08/2020 6:08PM By Randi Dhaliwal MD ; [facility] Chantix Continuing Month Jake 1 MG Oral Tablet 09/12/2020 - 11/08/2020 Provider: FRANCINE DHALIWAL MD Diagnosis: Nicotine depende nce, unspecified, uncomplicated One tablet twice a day Last Documented On 11/08/2020 5:14PM By MAXIMO EVANS ; [facility] Focalin 10 MG Oral Tablet 09/11/2020 - 10/17/2020 Prov ider: FRANCINE DHALIWAL MD Diagnosis: as directed -- 1 tab in am and 1 tab at 1 pm Last Documented On 10:48AM By Randi Dhaliwal MD ; [facility] HYDROcodone-Acetaminophen 10-325 MG Oral Tablet 09/11/2020 - 11/07/2020 Provider: Diagnosis: 1-3 times daily as needed #8 4 08/16/20, 07/20/20, 06/20/20, 05/19/20, 04/18/20, 03/22/20, 02/21/20, 01/24/20, 09/30/19, , 08/10/19, 07/11/19, 06/13/19, 05/16/19, 04/19/19, 03/23/19, 02/24/19, 01/25/19, 12/28/18, 11/23/18 Last Documented On 11/07/2020 5:24PM By MAXIMO EVANS ; [facility] Focalin 10 MG Oral Tablet 07/24/2020 - 09/11/2020 Provider: FRANCINE DHALIWAL MD Diagnosis: Attention-defici t hyperactivity disorder, other type as directed -- 1 tab in am a nd 1 tab at 1 pm Last Documented On 09/11/2020 1:12PM By Randi Dhaliwal MD ; [facility] Focalin 10 MG Oral Tablet 06/13/2020 - 07/24/2020 Provider: FRANCINE DHALIWAL MD Diagnosis: Attention-defici t hyperactivity disorder, other type as directed -- 1 tab in am a nd 1 tab at 1 pm Last Documented On 07/24/2020 6:05PM By Randi Dhaliwal MD ; [facility] lamoTRIgine 200 MG Oral Tablet 04/27/2020 - 11/08/2020 Provider: FRANCINE DHALIWAL MD Diagnosis: Bipolar II disor jason TAKE 1 TABLET BY MOUTH EVERY DAY Last Documented On 11/08/2020 5:18PM By MAXIMO EVANS ; [facility] Focalin 10 MG Oral Tablet 04/17/2020 - 06/13/2020 Provider: FRANCINE DHALIWAL MD Diagnosis: Attention-defici t hyperactivity disorder, other type as directed -- 1 tab in am a nd 1 tab at 1 pm Last Documented On 06/13/2020 1:30PM By Randi Dhaliwal MD ; [facility] Viagra 100 MG Oral Tablet 03/27/2020 - 11/08/2020 Provider: FRANCINE DHALIWAL MD Diagnosis: Male erectile dysfunction, unspecified as directed --1 a day as needed Last Documented On 11/08/2020 5:18PM By MAXIMO EVANS ; [facility] Viibryd 40 MG Oral Tablet 03/27/2020 - 01/10/2021 Provider: FRANCINE MARTINEZ MD Diagnosis: Major depressive disorder, recurrent, moderate 1 tablet every morning with food Last Documented On 01/10/2021 6:18PM By Randi Dhaliwal MD ; [facility] HYDROcodone-Acetaminophen 10-325 MG Oral Tablet 03/22/2020 - 09/11/2020 Provider: Diagnosis: 1-3 times daily as needed #8 4 02/21/20, 01/24/20, 09/30/19, , 08/10/19, 07/11/19, 06/13/19, 05/16/19, 04/19/19, 03/23/19, 02/24/19, 01/25/19, 12/28/18, 11/23/18 Last Documented On 09/11/2020 2:47PM By MAXIMO EVANS ; [facility] Focalin 10 MG Oral Tablet 03/16/2020 - 04/17/2020 Provider: FRANCINE DHALIWAL MD Diagnosis: Attention-defici t hyperactivity disorder, other type as directed -- 1 tab in am a nd 1 tab at 1 pm Last Documented On 04/17/2020 3:54PM By Randi Dhaliwal MD ; [facility] lamoTRIgine 200 MG Oral Tablet 02/01/2020 - 04/27/2020 Provider: FRANCINE DHALIWAL MD Diagnosis: Bipolar II disor jason One tablet daily Last Documented On 04/27/2020 1:57PM By Randi Dhaliwal MD ; [facility] Focalin 10 MG Oral Tablet 01/24/2020 - 03/16/2020 Provider: FRANCINE DHALIWAL MD Diagnosis: Attention-defici t hyperactivity disorder, other type as directed -- 1 tab in am a nd 1 tab at 1 pm Last Documented On 03/16/2020 2:21PM By Randi Dhaliwal MD ; [facility] Viibryd 40 MG Oral Tablet 12/24/2019 - 03/22/2020 Provider: FRANCINE MARTINEZ MD Diagnosis: Major depressive disorder, recurrent, moderate 1 tablet every morning with food Last Documented On 11:28AM By Randi Dhaliwal MD ; [facility] Focalin 10 MG Oral Tablet 12/13/2019 - 01/24/2020 Provider: FRANCINE DHALIWAL MD Diagnosis: Attention-defici t hyperactivity disorder, other type as directed -- 1 tab in am a nd 1 tab at 1 pm Last Documented On 01/24/2020 1:50PM By Randi Dhaliwal MD ; [facility] lamoTRIgine 200 MG Oral Tablet 11/15/2019 - 02/01/2020 Provider: FRANCINE DHALIWAL MD Diagnosis: Bipolar II disor jason One tablet daily Last Documented On 02/01/2020 4:39PM By Randi Dhaliwal MD ; [facility] Focalin 10 MG Oral Tablet 10/26/2019 - 12/13/2019 Provider: FRANCINE DHALIWAL MD Diagnosis: Attention-defici t hyperactivity disorder, other type as directed -- 1 tab in am a nd 1 tab at 1 pm Last Documented On 12/13/2019 4:19PM By Randi Dhaliwal MD ; [facility] Focalin 10 MG Oral Tablet 09/17/2019 - 10/26/2019 Provider: FRANCINE DHALIWAL MD Diagnosis: Attention-defici t hyperactivity disorder, other type as directed -- 1 tab in am a nd 1 tab at 1 pm Last Documented On 10/26/2019 1:45PM By Randi Dhaliwal MD ; [facility] HYDROcodone-Acetaminophen 10-325 MG Oral Tablet 08/30/2019 - 03/22/2020 Provider: Diagnosis: 1-3 times daily as needed #8 4 08/10/19, 07/11/19, 06/13/19, 05/16/19, 04/19/19, 03/23/19, 02/24/19, 01/25/19, 12/28/18, 11/23/18 Last Documented On 03/22/2020 1:26PM By MAXIMO EVANS ; [facility] Focalin 10 MG Oral Tablet 08/19/2019 - 09/17/2019 Provider: FRANCINE DHALIWAL MD Diagnosis: Attention-defici t hyperactivity disorder, other type as directed -- 1 tab in am a nd 1 tab at 1 pm Last Documented On 0 11:56AM By Randi Dhaliwal MD ; [facility] Focalin 10 MG Oral Tablet 07/09/2019 - 08/19/2019 Provider: FRANCINE DHALIWAL MD Diagnosis: Attention-defici t hyperactivity disorder, other type as directed -- 1 tab in am a nd 1 tab at 1 pm Last Documented On 08/19/2019 2:49PM By Randi Dhaliwal MD ; [facility] Focalin 10 MG Oral Tablet 05/27/2019 - 07/09/2019 Provider: FRANCINE DHALIWAL MD Diagnosis: Attention-defici t hyperactivity disorder, other type as directed -- 1 tab in am a nd 1 tab at 1 pm Last Documented On 07/09/2019 3:43PM By Randi Dhaliwal MD ; [facility] Mydayis 25 MG Oral Capsule Extended Release 24 Hour 04/13/2019 - 05/13/2019 Provider: FRANCINE DHALIWAL MD Diagnosis: Attn-defct hyper activity disorder, predom inattentive type 1 Capsule every morning Last Documented On 0 11:16AM By Randi Dhaliwal MD ; [facility] Omeprazole 20 MG Oral Tablet Delayed Release 04/13/2019 - 11/08/2020 Provider: FRANCINE DHALIWAL MD Diagnosis: Gastro-esophagea l reflux disease without esophagitis as directed - 1 tab daily Last Documented On 11/08/2020 5:15PM By MAXIMO EVANS ; [facility] Focalin 10 MG Oral Tablet 04/13/2019 - 05/27/2019 Provider: FRANCINE DHALIWAL MD Diagnosis: Attention-defici t hyperactivity disorder, other type as directed -- 1 tab in am a nd 1 tab at 1 pm Last Documented On 05/27/2019 4:03PM By Radni Dhaliwal MD ; [facility] lamoTRIgine 200 MG Oral Tablet 04/13/2019 - 11/15/2019 Provider: FRANCINE DHALIWAL MD Diagnosis: Bipolar II disor jason One tablet daily Last Documented On 0 11:07AM By Randi Dhaliwal MD ; [facility] Focalin 10 MG Oral Tablet 03/25/2019 - 04/13/2019 Provider: FRANCINE DHALIWAL MD Diagnosis: Attention-defici t hyperactivity disorder, other type as directed -- 1 tab in am a nd 1 tab at 1 pm Last Documented On 0 10:53AM By Randi Dhaliwal MD ; [facility] Focalin 10 MG Oral Tablet 02/22/2019 - 03/25/2019 Provider: FRANCINE DHALIWAL MD Diagnosis: Attention-defici t hyperactivity disorder, other type as directed -- 1 tab in am a nd 1 tab at 1 pm Last Documented On 03/25/2019 5:34PM By Randi Dhaliwal MD ; [facility] Focalin 10 MG Oral Tablet 01/15/2019 - 02/22/2019 Provider: FRANCINE DHALIWAL MD Diagnosis: Attention-defici t hyperactivity disorder, other type as directed -- 1 tab in am a nd 1 tab at 1 pm Last Documented On 02/22/2019 2:17PM By Randi Dhaliwal MD ; [facility] Focalin 10 MG Oral Tablet 12/14/2018 - 01/15/2019 Provider: FRANCINE DHALIWAL MD Diagnosis: Attention-defici t hyperactivity disorder, other type as directed -- 1 tab in am a nd 1 tab at 1 pm Last Documented On 9 10:17AM By Randi Dhaliwal MD ; [facility] Viibryd 40 MG Oral Tablet 12/09/2018 - 12/24/2019 Provider: FRANCINE MARTINEZ MD Diagnosis: Major depressive disorder, recurrent, moderate 1 tablet every morning with food Last Documented On 12/24/2019 9:54AM By Randi Dhaliwal MD ; [facility] Viagra 100 MG Oral Tablet 11/15/2018 - 03/22/2020 Provider: FRANCINE DHALIWAL MD Diagnosis: Male erectile dysfunction, unspecified as directed --1 a day as needed Last Documented On 1 11:28AM By Randi Dhaliwal MD ; [facility] QUEtiapine Fumarate 25 MG Oral Tablet 11/15/2018 - 10/31/2021 Provider: FRANCINE DHALIWAL MD Diagnosis: Generalized anxi ety disorder One tablet at bed time prn o nly -- has not been taking as much -- only 2 x a month if at all Last Documented On 10/31/2021 5:16PM By Randi Dhaliwal MD ; [facility] Chantix Starting Month Jake 0.5 MG X 11 & 1 MG X 42 Oral Tablet 11/15/2018 - 11/08/2020 Provider: FRANCINE DHALIWAL MD Diagnosis: Nicotine depende nce, unspecified, uncomplicated as directed -- 1 tab daily Last Documented On 11/08/2020 5:17PM By MAXIMO EVANS ; [facility] Chantix Starting Month Jake 0.5 MG X 11 & 1 MG X 42 Oral Tablet 10/22/2018 - 12/14/2018 Provider: FRANCINE DHALIWAL MD Diagnosis: Nicotine depende nce, unspecified, uncomplicated as directed -- please follow directions Last Documented On 12/14/2018 9:19AM By JOIE ARCHIBALD ; [facility] lamoTRIgine 200 MG Oral Tablet 10/14/2018 - 04/13/2019 Provider: FRANCINE DHALIWAL MD Diagnosis: Bipolar II disor jason One tablet daily Last Documented On 0 10:53AM By Randi Dhaliwal MD ; [facility] Focalin 10 MG Oral Tablet 10/14/2018 - 12/14/2018 Provider: FRANCINE DHALIWAL MD Diagnosis: Attention-defici t hyperactivity disorder, other type as directed -- 1 tab in am a nd 1 tab at 1 pm Last Documented On 9 10:56AM By Randi Dhaliwal MD ; [facility] Vyvanse 30 MG Oral Capsule 10/14/2018 - 12/14/2018 Provider: FRANCINE DHALIWAL MD Diagnosis: Attention-defici t hyperactivity disorder, other type 1 Capsule every morning Last Documented On 12/14/2018 9:18AM By JOIE ARCHIBALD ; [facility] Focalin 10MG Oral Tablet 08/31/2018 - 12/14/2018 Provider: FRANCINE DHALIWAL MD Diagnosis: Attn-defct hyper activity disorder, predom inattentive type as directed --1 tab in am an d 1 tab at noon Last Documented On 12/14/2018 9:18AM By JOIE ARCHIBALD ; [facility] Viibryd 40MG Oral Tablet 08/31/2018 - 12/09/2018 Provider: FRANCINE MARTINEZ MD Diagnosis: Major depressive disorder, recurrent, moderate 1 tablet every morning with food Last Documented On 9 11:29AM By Randi Dhaliwal MD ; [facility] Gabapentin 100 MG Oral Capsule 08/25/2018 - 08/31/2019 Provider: JEAN RODRIGUEZ MD Diagnosis: 1 cap at bedtime as needed Last Documented On 08/31/2019 4:35PM By MAXIMO EVANS ; [facility] Focalin 10MG Oral Tablet 07/15/2018 - 08/31/2018 Provider: FRANCINE DHALIWAL MD Diagnosis: Attn-defct hyper activity disorder, predom inattentive type as directed --1 tab in am an d 1 tab at noon Last Documented On 08/31/2018 5:09PM By Randi Dhaliwal MD ; [facility] QUEtiapine Fumarate 25MG Oral Tablet 04/27/2018 - 10/14/2018 Provider: FRANCINE DHALIWAL MD Diagnosis: Generalized anxi ety disorder One tablet at bed time prn o nly -- has not been taking as much -- only 2 x a month if at all Last Documented On 11/15/2018 5:08PM By Randi Dhalwial MD ; [facility] Viibryd 40MG Oral Tablet 04/27/2018 - 08/31/2018 Provider: FRANCINE MARTINEZ MD Diagnosis: Major depressive disorder, recurrent, moderate 1 tablet every morning with food Last Documented On 08/31/2018 5:10PM By Randi Dhaliwal MD ; [facility] lamoTRIgine 200MG Oral Tablet 04/27/2018 - 10/14/2018 Provider: FRANCINE DHALIWAL MD Diagnosis: Bipolar II disor jason One tablet daily Last Documented On 10/14/2018 4:32PM By Randi Dhaliwal MD ; [facility] Focalin 10MG Oral Tablet 04/24/2018 - 07/15/2018 Provider: FRANCINE DHALIWAL MD Diagnosis: Attn-defct hyper activity disorder, predom inattentive type as directed --1 tab in am an d 1 tab at noon Last Documented On 07/15/2018 3:50PM By Randi Dhaliwal MD ; [facility] LamoTRIgine 200MG Oral Tablet 03/25/2018 - 04/24/2018 Provider: FRANCINE DHALIWAL MD

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
--- OUTSIDE RECORDS SUMMARY | 2024-06-04 08:50 | XMS_ITS | Clinical Summary ---
Author Organization [address] Address [address] [place] [id number] Care Team Providers Care Architectural Design Lecturer Name Role Phone Stacie Ny MD Primary Care Provider Allergies No known active allergies Medications ALPRAZolam (XANAX) 0.5 mg tablet Take 0.5 mg by mouth nightly as needed 1 Active ciclesonide (OMNARIS) 50 mcg nasal spray Administer 2 sprays into affected nostril(s) 2 (two) times a day 0 Active citalopram (CeleXA) 40 mg tablet Take by mouth Active dexmethylphenid ate (FOCALIN) 10 mg tablet TAKE 1 TABLET BY MOUTH IN THE MORNING AND 1 TABLET AT 12 NOON DIRECTED 2 Active ergocalciferol (VITAMIN D) 50,000 unit capsule 3 Active HYDROcodone-elda taminophen (NORCO) 10-325 mg per tablet Take 1 tablet by mouth every 8 (eight) hours as needed 2 Active HYDROcodone-elda taminophen (NORCO) 7.5-325 mg per tablet TAKE 1 TABLET EVERY 8 HOURS NEEDED 2 Active lamoTRIgine (LaMICtal) 150 mg tablet Take 150 mg by mouth 2 (two) times a day 2 Active phentermine (ADIPEX-P) 37.5 mg tablet Take 37.5 mg by mouth daily before breakfast 1 Active Azstarys 39.2 mg- 7.8 mg capsule Take 1 capsule by mouth every morning 2 Active tadalafiL (CIALIS) 5 mg tablet Take 5 mg by mouth daily as needed 1 Active traMADoL (ULTRAM) 50 mg tablet Take 50 mg by mouth every 6 (six) hours as needed 1 Active vilazodone (VIIBRYD) 40 mg tablet TAKE 1 TABLET BY MOUTH EVERY MORNING WITH FOOD 2 Active Active Problems Problem Noted Date Diagnosed Date Back pain 11/30/2010 Pain in joint, multiple sites 11/30/2010 Allergy 04/20/2008 Overview (02/19/2022): chronic Depression 04/20/2008 Overview (02/19/2022): chronic Sinusitis 04/20/2008 Overview (02/19/2022): Mild Social History Tobacco Use Types Packs/Day Years Used Date Smoking Tobacco: Every Day Cigarettes Tobacco Cessation:Ready to Q uit: Not Asked; Counseling Given: Not Answered Personal Safety Answer Date Recorded Getting School Help Needed Not on file 04/06 Sex and Gender Information Value Date Recorded Sex Assigned at Not on file Legal Sex Male 9:13 PM [employer] Gender Identity Not on file Sexual Orientation Not on file Obstetrics History Last Filed Vital Signs Vital Sign Reading Time Taken Comments Blood Pressure 116/68 02/19/2022 10:19 AM [employer] Pulse 78 02/19/2022 10:19 AM [employer] Temperature 37 C (98.6 F) 02/19/2022 10:19 AM [employer] Respiratory Rate 18 02/19/2022 10:19 AM [employer] Oxygen Saturation 97% 02/19/2022 10:19 AM [employer] Inhaled Oxygen Concentration - - Weight 84.8 kg (187 lb) 02/19/2022 10:19 AM [employer] Height 180.3 cm (5' 11 ) 02/19/2022 10:19 AM [employer] Body Mass Index 26.08 02/19/2022 10:19 AM [employer] Plan of Treatment Health Maintenance Due Date Last Done Comments Colon Cancer Screening-Colonoscopy 1968 Depression Screening 1968 Hepatitis C Screening 1968 Prostate Cancer Screening-PSA 1968 DTaP/Tdap/Td Vaccine (1 - Tdap) 02/24/1979 Hepatitis B Screening 02/24/1986 Regular Well Visit/Exam 18-64 02/24/1986 Pneumococcal vaccine <65 (1 of 2 - PCV) 02/24/1987 Zoster Vaccine (1 of 2) 02/24/2018 Covid-19 Vaccine (4 - 2023-2 5 season) 2023 01/29/2021, 06/16/2020, 05/26/2020 Influenza Vaccine (Season Ended) 2024 11/24/2021, 01/29/2021, 10/17/2019, Additional history exists Insurance [employer] Care Teams Architectural Design Lecturer Relationship Specialty Start Date End Date Stacie Ny MD [id number] [facility] [address] [place] [address] PCP - General Family Medicine 02/19/22
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
--- OUTSIDE RECORDS SUMMARY | 2024-06-04 08:50 | XMS_ITS ---
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 Active Last Documented On 3 5:51PM ; [facility] Vitamin Deficiency 10/11/2017 Active Last Documented On 3 5:51PM ; [facility] Note: Vitamin D deficiency Psychophysiological Insomnia 03/08/2016 Active Last Documented On 3 5:50PM ; [facility] Nicotine Dependence 05/13/2014 Activ e Last Documented On 3 5:48PM ; [facility] Generalized Anxiety Disorder 01/05/2014 Active Last Documented On 3 5:47PM ; [facility] Major Depression, Recurrent 01/05/2014 Active Last Documented On 3 5:47PM ; [facility] Bipolar II Disorder 10/11/2013 Activ e Last Documented On 3 5:47PM ; [facility] Plan of Treatment Pending Tests Order Diagnosis Results Due Ordering P rovider Lab Lipid Panel 03/19/23 FRANCINE HARPER MD Last Documented On 4 5:44PM ; [facility] Lab Vitamin D 03/19/23 FRANCINE DYER MD Last Documented On 4 5:44PM ; [facility] Lab CMP (FASTING) 03/19/23 FRANCINE DHALIWAL MD Last Documented On 4 5:44PM ; [facility] Assessments Includes: Assessments for all patient encounters Findings Encounter Date Attention deficit disorder w ithout hyperactivity, predominantly inattentive type [facility] ESTABLISHED with FRANCINE DHALIWAL MD 07/02/2023 Last Documented On 4 1:55PM ; [facility] Bipolar II disorder TELEHEALTH ADULT PSY CH ESTABLISHED with FRANCINE DHALIWAL MD 07/02/2023 Last Documented On 4 1:55PM ; [facility] Generalized anxiety disorder TELEHEALTH ADULT PSYCH ESTABLISHED with FRANCINE DHALIWAL MD 07/02/2023 Last Documented On 4 1:55PM ; [facility] Major depression, recurrent TELEHEALTH A DULT PSYCH ESTABLISHED with FRANCINE DHALIWAL MD 07/02/2023 Last Documented On 4 1:55PM ; [facility] Nicotine dependence TELEHEALTH ADULT PSY CH ESTABLISHED with FRANCINE DHALIWAL MD 07/02/2023 Last Documented On 4 1:55PM ; [facility] Obstructive sleep apnea TELEHEALTH ADULT PSYCH ESTABLISHED with FRANCINE DHALIWAL MD 07/02/2023 Last Documented On 4 1:55PM ; [facility] Psychophysiological insomnia TELEHEALTH ADULT PSYCH ESTABLISHED with FRANCINE DHALIWAL MD 07/02/2023 Last Documented On 4 1:55PM ; [facility] Vitamin deficiency TELEHEALTH ADULT PSY CH ESTABLISHED with FRANCINE DHALIWAL MD 07/02/2023 Last Documented On 4 1:55PM ; [facility] Attention deficit disorder w ithout hyperactivity, predominantly inattentive type * PHONE CALL with FRANCINE DHALIWAL MD 04/22/2023 Last Documented On 4 3:03PM ; [facility] Attention deficit disorder w ithout hyperactivity, predominantly inattentive type TELEHEALTH ADULT PSYCH ESTABLISHED with FRANCINE DHALIWAL MD 03/05/2023 Last Documented On 4 8:35PM ; [facility] Bipolar II disorder TELEHEALTH ADULT PSY CH ESTABLISHED with FRANCINE DHALIWAL MD 03/05/2023 Last Documented On 4 8:35PM ; [facility] Generalized anxiety disorder TELEHEALTH ADULT PSYCH ESTABLISHED with FRANCINE DHALIWAL MD 03/05/2023 Last Documented On 4 8:35PM ; [facility] Major depression, recurrent TELEHEALTH A DULT PSYCH ESTABLISHED with FRANCINE DHALIWAL MD 03/05/2023 Last Documented On 4 8:35PM ; [facility] Nicotine dependence TELEHEALTH ADULT PSY CH ESTABLISHED with FRANCINE DHALIWAL MD 03/05/2023 Last Documented On 4 8:35PM ; [facility] Obstructive sleep apnea TELEHEALTH ADULT PSYCH ESTABLISHED with FRANCINE DHALIWAL MD 03/05/2023 Last Documented On 4 8:35PM ; [facility] Psychophysiological insomnia TELEHEALTH ADULT PSYCH ESTABLISHED with FRANCINE DHALIWAL MD 03/05/2023 Last Documented On 4 8:35PM ; [facility] Vitamin deficiency TELEHEALTH ADULT PSY CH ESTABLISHED with FRANCINE DHALIWAL MD 03/05/2023 Last Documented On 4 8:35PM ; [facility] Attention deficit disorder w ithout hyperactivity, predominantly inattentive type * PHONE CALL with FRANCINE DHALIWAL MD 01/13/2023 Last Documented On 3 1:13PM ; [facility] Attention deficit disorder w ithout hyperactivity, predominantly inattentive type TELEHEALTH ADULT PSYCH ESTABLISHED with FRANCINE DHALIWAL MD 11/06/2022 Last Documented On 3 10:41PM ; [facility] Bipolar II disorder TELEHEALTH ADULT PSY CH ESTABLISHED with FRANCINE DHALIWAL MD 11/06/2022 Last Documented On 3 10:41PM ; [facility] Generalized anxiety disorder TELEHEALTH ADULT PSYCH ESTABLISHED with FRANCINE DHALIWAL MD 11/06/2022 Last Documented On 3 10:41PM ; [facility] Major depression, recurrent TELEHEALTH A DULT PSYCH ESTABLISHED with FRANCINE DHALIWAL MD 11/06/2022 Last Documented On 3 10:41PM ; [facility] Nicotine dependence TELEHEALTH ADULT PSY CH ESTABLISHED with FRANCINE DHALIWAL MD 11/06/2022 Last Documented On 3 10:41PM ; [facility] Obstructive sleep apnea TELEHEALTH ADULT PSYCH ESTABLISHED with FRANCINE DHALIWAL MD 11/06/2022 Last Documented On 3 10:41PM ; [facility] Psychophysiological insomnia TELEHEALTH ADULT PSYCH ESTABLISHED with FRANCINE DHALIWAL MD 11/06/2022 Last Documented On 3 10:41PM ; [facility] Vitamin deficiency TELEHEALTH ADULT PSY CH ESTABLISHED with FRANCINE DHALIWAL MD 11/06/2022 Last Documented On 3 10:41PM ; [facility] Attention deficit disorder w ithout hyperactivity, predominantly inattentive type TELEHEALTH ADULT PSYCH ESTABLISHED with FRANCINE DHALIWAL MD 08/05/2022 Last Documented On 3 8:41AM ; [facility] Bipolar II disorder TELEHEALTH ADULT PSY CH ESTABLISHED with FRANCINE DHALIWAL MD 08/05/2022 Last Documented On 3 8:41AM ; [facility] Generalized anxiety disorder TELEHEALTH ADULT PSYCH ESTABLISHED with FRANCINE DHALIWAL MD 08/05/2022 Last Documented On 3 8:41AM ; [facility] Major depression, recurrent TELEHEALTH A DULT PSYCH ESTABLISHED with FRANCINE DHALIWAL MD 08/05/2022 Last Documented On 3 8:41AM ; [facility] Nicotine dependence TELEHEALTH ADULT PSY CH ESTABLISHED with FRANCINE DHALIWAL MD 08/05/2022 Last Documented On 3 8:41AM ; [facility] Obstructive sleep apnea TELEHEALTH ADULT PSYCH ESTABLISHED with FRANCINE DHALIWAL MD 08/05/2022 Last Documented On 3 8:41AM ; [facility] Psychophysiological insomnia TELEHEALTH ADULT PSYCH ESTABLISHED with FRANCINE DHALIWAL MD 08/05/2022 Last Documented On 3 8:41AM ; [facility] Vitamin deficiency TELEHEALTH ADULT PSY CH ESTABLISHED with FRANCINE DHALIWAL MD 08/05/2022 Last Documented On 3 8:41AM ; [facility] Medical Equipment - Implanted Devices Includes: Current and historical Devices No Medical Equipment Recorded Medications Includes: Current and historical Medications Current Medications (continue as prescribed) Focalin 10 MG Oral Tablet 07/30/2023 Provider: FRANCINE DHALIWAL MD Diagnosis: Attn-defct hyper activity disorder, predom inattentive type as directed -- 1 tab in am a nd 1 tab at 12 noon Last Documented On 07/30/2023 3:13PM By Randi Dhaliwal MD ; [facility] Azstarys 52.3-10.4 MG Oral Capsule 07/30/2023 Provider: FRANCINE DHALIWAL MD Diagnosis: Attn-defct hyper activity disorder, predom inattentive type 1 Capsule every morning Last Documented On 07/30/2023 3:13PM By Randi Dhaliwal MD ; [facility] Ergocalciferol 1.25 MG (37350 UT) Oral Capsule 07/03/2023 Provider: FRANCINE MARTINEZ MD Diagnosis: Vitamin D defici ency, unspecified as directed 1 capsule once a week Last Documented On 07/03/2023 9:50PM By Randi Dhaliwal MD ; [facility] lamoTRIgine 150 MG Oral Tablet 05/06/2023 Provider: FRANCINE DHALIWAL MD Diagnosis: Bipolar II disor jason TAKE 1 TABLET BY MOUTH TWICE A DAY Last Documented On 05/06/2023 8:06AM By Randi Dhaliwal MD ; [facility] HYDROcodone-Acetaminophen 7.5-325 MG OR TABS Provider: Diagnosis: 1 - 3 times daily as needed 01/07/22 Last Documented On 06/08/2022 5:34PM By JOIE ARCHIBALD ; [facility] Belsomra 10 MG OR TABS 10/31/2021 Provider: ANDRE DHALIWAL MD Diagnosis: Psychophysiologi c insomnia One tablet at bed time Last Documented On 06/08/2022 5:34PM By Randi Dhaliwal MD ; [facility] Sildenafil Citrate 20 MG OR TABS 09/12/2020 Provider: FRANCINE DHALIWAL MD Diagnosis: Male erectile di sorder as directed -- 1 tab a day a s needed only Last Documented On 06/08/2022 5:34PM By Randi Dhaliwal MD ; [facility] Past Medications on file Focalin 10 MG Oral Tablet 06/30/2023 - 07/30/2023 Provider: FRANCINE DHALIWAL MD Diagnosis: Attn-defct hyper activity disorder, predom inattentive type as directed -- 1 tab in am a nd 1 tab at 12 noon Last Documented On 07/30/2023 3:07PM By Randi Dhaliwal MD ; [facility] Azstarys 52.3-10.4 MG Oral Capsule 06/30/2023 - 07/30/2023 Provider: FRANCINE DHALIWAL MD Diagnosis: Attn-defct hyper activity disorder, predom inattentive type 1 Capsule every morning Last Documented On 07/30/2023 3:07PM By Randi Dhaliwal MD ; [facility] Azstarys 52.3-10.4 MG Oral Capsule 05/29/2023 - 06/30/2023 Provider: FRANCINE DHALIWAL MD Diagnosis: Attn-defct hyper activity disorder, predom inattentive type 1 Capsule every morning Last Documented On 06/30/2023 1:21PM By Randi Dhaliwal MD ; [facility] Focalin 10 MG Oral Tablet 05/29/2023 - 06/30/2023 Provider: FRANCINE DHALIWAL MD Diagnosis: Attn-defct hyper activity disorder, predom inattentive type as directed -- 1 tab in am a nd 1 tab at 12 noon Last Documented On 06/30/2023 1:28PM By Randi Dhaliwal MD ; [facility] Dyanavel XR 15 MG Oral Tablet Chewable Extended Release 05/01/2023 - 07/02/2023 Provider: FRANCINE DHALIWAL MD Diagnosis: Attn-defct hyper activity disorder, predom inattentive type as directed - 1 tab at noon Last Documented On 07/02/2023 5:17PM By Randi Dhaliwal MD ; [facility] Focalin 10 MG Oral Tablet 04/29/2023 - 05/29/2023 Provider: FRANCINE DHALIWAL MD Diagnosis: Attn-defct hyper activity disorder, predom inattentive type as directed -- 1 tab in am a nd 1 tab at 12 noon Last Documented On 05/29/2023 10:31AM By Randi Dhaliwal MD ; [facility] Mydayis 25 MG Oral Capsule Extended Release 24 Hour 04/22/2023 - 07/02/2023 Provider: FRANCINE DHALIWAL MD Diagnosis: Attn-defct hyper activity disorder, predom inattentive type 1 Capsule every morning Last Documented On 07/02/2023 5:17PM By Randi Dhaliwal MD ; [facility] Dyanavel XR 15 MG Oral Tablet Chewable Extended Release 04/07/2023 - 05/01/2023 Provider: FRANCINE DHALIWAL MD Diagnosis: Attn-defct hyper activity disorder, predom inattentive type as directed - 1 tab at noon Last Documented On 05/01/2023 10:38AM By Randi Dhaliwal MD ; [facility] Focalin 10 MG Oral Tablet 03/24/2023 - 04/29/2023 Provider: FRANCINE DHALIWAL MD Diagnosis: Attn-defct hyper activity disorder, predom inattentive type as directed -- 1 tab in am a nd 1 tab at 12 noon Last Documented On 04/29/2023 5:07PM By Randi Dhaliwal MD ; [facility] Dyanavel XR 15 MG Oral Tablet Chewable Extended Release 03/05/2023 - 04/07/2023 Provider: FRANCINE DHALIWAL MD Diagnosis: Attn-defct hyper activity disorder, predom inattentive type as directed - 1 tab at noon Last Documented On 04/07/2023 1:49PM By Randi Dhaliwal MD ; [facility] Focalin 10 MG Oral Tablet 02/07/2023 - 02/07/2023 Provider: FRANCINE DHALIWAL MD Diagnosis: Attn-defct hyper activity disorder, predom inattentive type as directed -- 1 tab in am a nd 1 tab at 12 noon Last Documented On 02/07/2023 5:01PM By Randi Dhaliwal MD ; [facility] Azstarys 52.3-10.4 MG Oral Capsule 02/07/2023 - 05/29/2023 Provider: FRANCINE DHALIWAL MD Diagnosis: Attn-defct hyper activity disorder, predom inattentive type 1 Capsule every morning Last Documented On 05/29/2023 10:30AM By Randi Dhaliwal MD ; [facility] Focalin 10 MG Oral Tablet 02/07/2023 - 03/24/2023 Provider: FRANCINE DHALIWAL MD Diagnosis: Attn-defct hyper activity disorder, predom inattentive type as directed -- 1 tab in am a nd 1 tab at 12 noon Last Documented On 03/24/2023 1:27PM By Randi Dhaliwal MD ; [facility] Methylphenidate HCl 20 MG Oral Tablet 01/13/2023 - 07/02/2023 Provider: FRANCINE DHALIWAL MD Diagnosis: Attn-defct hyperactivity disorder, predom inattentive type as directed - 1 tab at 1 pm Last Documented On 07/02/2023 5:17PM By Randi Dhaliwal MD ; [facility] Focalin 10 MG Oral Tablet 01/08/2023 - 02/07/2023 Provider: FRANCINE DHALIWAL MD Diagnosis: Attn-defct hyper activity disorder, predom inattentive type as directed -- 1 tab in am a nd 1 tab at 12 noon Last Documented On 02/07/2023 4:13PM By Randi Dhaliwal MD ; [facility] Focalin 10 MG Oral Tablet 01/01/2023 - 01/08/2023 Provider: FRANCINE DHALIWAL MD Diagnosis: Attn-defct hyper activity disorder, predom inattentive type as directed -- 1 tab in am a nd 1 tab at 12 noon Last Documented On 01/08/2023 10:30AM By Randi Dhaliwal MD ; [facility] Azstarys 52.3-10.4 MG Oral Capsule 01/01/2023 - 02/07/2023 Provider: FRANCINE DHALIWAL MD Diagnosis: Attn-defct hyper activity disorder, predom inattentive type 1 Capsule every morning Last Documented On 02/07/2023 4:12PM By Randi Dhaliwal MD ; [facility] Focalin 10 MG Oral Tablet 12/05/2022 - 01/01/2023 Provider: FRANCINE DHALIWAL MD Diagnosis: Attn-defct hyper activity disorder, predom inattentive type as directed -- 1 tab in am a nd 1 tab at 12 noon Last Documented On 01/01/2023 3:08PM By Randi Dhaliwal MD ; [facility] Azstarys 52.3-10.4 MG Oral Capsule 12/05/2022 - 01/01/2023 Provider: FRANCINE DHALIWAL MD Diagnosis: Attn-defct hyper activity disorder, predom inattentive type 1 Capsule every morning Last Documented On 01/01/2023 3:07PM By Randi Dhaliwal MD ; [facility] Ergocalciferol 1.25 MG (03609 UT) Oral Capsule 11/27/2022 - 03/05/2023 Provider: FRANCINE DHALIWAL MD Diagnosis: Vitamin D defici ency, unspecified 1 capsule once a week Last Documented On 03/05/2023 4:42PM By MAXIMO EVANS ; [facility] Ergocalciferol 1.25 MG (68652 UT) Oral Capsule 11/27/2022 - 07/02/2023 Provider: FRANCINE DHALIWAL MD Diagnosis: Vitamin D defici ency, unspecified as directed 1 capsule once a week Last Documented On 07/03/2023 9:45PM By Randi Dhaliwal MD ; [facility] Vilazodone HCl 40 MG Oral Tablet 11/07/2022 - 11/02/2023 Provider: FRANCINE DHALIWAL MD Diagnosis: Major depressive disorder, recurrent, moderate 1 tablet every morning with food Last Documented On 11/07/2022 5:41PM By Randi Dhaliwal MD ; [facility] Focalin 10 MG Oral Tablet 11/06/2022 - 12/05/2022 Provider: FRANCINE DHALIWAL MD Diagnosis: Attn-defct hyper activity disorder, predom inattentive type as directed -- 1 tab in am a nd 1 tab at 12 noon Last Documented On 12/05/2022 5:19PM By Randi Dhaliwal MD ; [facility] Azstarys 52.3-10.4 MG Oral Capsule 11/06/2022 - 12/05/2022 Provider: FRANCINE DHALIWAL MD Diagnosis: Attn-defct hyper activity disorder, predom inattentive type 1 Capsule every morning Last Documented On 12/05/2022 5:20PM By Randi Dhaliwal MD ; [facility] Azstarys 52.3-10.4 MG Oral Capsule 10/08/2022 - 11/06/2022 Provider: FRANCINE DHALIWAL MD Diagnosis: Attn-defct hyper activity disorder, predom inattentive type 1 Capsule every morning Last Documented On 11/06/2022 5:19PM By Randi Dhaliwal MD ; [facility] Focalin 10 MG Oral Tablet 10/08/2022 - 11/06/2022 Provider: FRANCINE DHALIWAL MD Diagnosis: Attn-defct hyper activity disorder, predom inattentive type as directed -- 1 tab in am a nd 1 tab at 12 noon Last Documented On 11/06/2022 5:20PM By Randi Dhailwal MD ; [facility] Focalin 10 MG Oral Tablet 09/09/2022 - 10/08/2022 Provider: FRANCINE DHALIWAL MD Diagnosis: Attn-defct hyper activity disorder, predom inattentive type as directed -- 1 tab in am a nd 1 tab at 12 noon Last Documented On 10/08/2022 7:33PM By Randi Dhaliwal MD ; [facility] Azstarys 52.3-10.4 MG Oral Capsule 09/09/2022 - 10/08/2022 Provider: FRANCINE DHALIWAL MD Diagnosis: Attn-defct hyper activity disorder, predom inattentive type 1 Capsule every morning Last Documented On 10/08/2022 7:32PM By Randi Dhaliwal MD ; [facility] Azstarys 52.3-10.4 MG Oral Capsule 08/12/2022 - 09/09/2022 Provider: FRANCINE DHALIWAL MD Diagnosis: Attn-defct hyper activity disorder, predom inattentive type 1 Capsule every morning Last Documented On 09/09/2022 2:00PM By Randi Dhaliwal MD ; [facility] Focalin 10 MG Oral Tablet 08/12/2022 - 09/09/2022 Provider: FRANCINE DHALIWAL MD Diagnosis: Attn-defct hyper activity disorder, predom inattentive type as directed -- 1 tab in am a nd 1 tab at 12 noon Last Documented On 09/09/2022 2:01PM By Randi Dhaliwal MD ; [facility] Focalin 10 MG Oral Tablet 07/09/2022 - 08/12/2022 Provider: FRANCINE DHALIWAL MD Diagnosis: Attn-defct hyper activity disorder, predom inattentive type as directed -- 1 tab in am a nd 1 tab at 12 noon Last Documented On 08/12/2022 10:29AM By Randi Dhaliwal MD ; [facility] Azstarys 52.3-10.4 MG Oral Capsule 07/09/2022 - 08/12/2022 Provider: FRANCINE DHALIWAL MD Diagnosis: Attn-defct hyper activity disorder, predom inattentive type 1 Capsule every morning Last Documented On 08/12/2022 10:29AM By Randi Dhaliwal MD ; [facility] Azstarys 52.3-10.4 MG Oral Capsule 06/10/2022 - 07/09/2022 Provider: FRANCINE DHALIWAL MD Diagnosis: Attn-defct hyper activity disorder, predom inattentive type 1 Capsule every morning Last Documented On 07/09/2022 11:02AM By Randi Dhaliwal MD ; [facility] Focalin 10 MG Oral Tablet 06/10/2022 - 07/09/2022 Provider: FRANCINE DHALIWAL MD Diagnosis: Attn-defct hyper activity disorder, predom inattentive type as directed -- 1 tab in am a nd 1 tab at 12 noon Last Documented On 07/09/2022 11:04AM By Randi Dhaliwal MD ; [facility] Azstarys 52.3-10.4 MG OR CAPS 05/06/2022 - 06/10/2022 Provider: FRANCINE DHALIWAL MD Diagnosis: Attn-defct hyper activity disorder, predom inattentive type 1 Capsule every morning Last Documented On 06/10/2022 6:45PM By Randi Dhaliwal MD ; [facility] QUEtiapine Fumarate 25 MG OR TABS 05/06/2022 - 023 Provider: Diagnosis: 1 tab at bedtime as needed Last Documented On 11/06/2022 5:13PM By aRndi Dhaliwal MD ; [facility] Focalin 10 MG OR TABS 05/06/2022 - 06/10/2022 Provider: FRANCINE DHALIWAL MD Diagnosis: Attn-defct hyper activity disorder, predom inattentive type as directed -- 1 tab in am a nd 1 tab at 12 noon Last Documented On 06/10/2022 6:46PM By Randi Dhaliwal MD ; [facility] lamoTRIgine 150 MG OR TABS 04/24/2022 - 05/06/2023 Provider: FRANCINE DHALIWAL MD Diagnosis: Bipolar II disor jason TAKE 1 TABLET BY MOUTH TWICE A DAY Last Documented On 05/06/2023 8:04AM By Randi Dhaliwal MD ; [facility] Focalin 10 MG OR TABS 04/09/2022 - 05/06/2022 Provider: FRANCINE DHALIWAL MD Diagnosis: Attn-defct hyper activity disorder, predom inattentive type as directed -- 1 tab in am a nd 1 tab at 12 noon Last Documented On 06/08/2022 5:34PM By Randi Dhaliwal MD ; [facility] Azstarys 52.3-10.4 MG OR CAPS 04/08/2022 - 05/06/2022 Provider: FRANCINE DHALIWAL MD Diagnosis: Attn-defct hyper activity disorder, predom inattentive type 1 Capsule every morning Last Documented On 06/08/2022 5:34PM By Randi Dhaliwal MD ; [facility] Focalin 10 MG OR TABS 03/11/2022 - 04/09/2022 Provider: FRANCINE DHALIWAL MD Diagnosis: Attn-defct hyper activity disorder, predom inattentive type as directed -- 1 tab in am a nd 1 tab at 12 noon Last Documented On 06/08/2022 5:34PM By Randi Dhaliwal MD ; [facility] Focalin 10 MG OR TABS 03/11/2022 - 03/11/2022 Provider: FRANCINE DHALIWAL MD Diagnosis: Attn-defct hyper activity disorder, predom inattentive type as directed -- 1 tab in am a nd 1 tab at 12 noon Last Documented On 06/08/2022 5:34PM By Randi Dhaliwal MD ; [facility] Azstarys 52.3-10.4 MG OR CAPS 03/05/2022 - 04/08/2022 Provider: FRANCINE DHALIWAL MD Diagnosis: Attn-defct hyper activity disorder, predom inattentive type 1 Capsule every morning Last Documented On 06/08/2022 5:34PM By Randi Dhaliwal MD ; [facility] Azstarys 39.2-7.8 MG OR CAPS 02/07/2022 - 03/09/2022 Provider: FRANCINE DHALIWAL MD Diagnosis: Attn-defct hyper activity disorder, predom inattentive type 1 Capsule every morning Last Documented On 06/08/2022 5:34PM By Randi Dhaliwal MD ; [facility] Focalin 10 MG OR TABS 02/06/2022 - 03/11/2022 Provider: FRANCINE DHALIWAL MD Diagnosis: Attn-defct hyper activity disorder, predom inattentive type as directed -- 1 tab in am a nd 1 tab at 12 noon Last Documented On 06/08/2022 5:34PM By Randi Dhaliwal MD ; [facility] lamoTRIgine 150 MG OR TABS 01/23/2022 - 04/24/2022 Provider: FRANCINE DHALIWAL MD Diagnosis: Bipolar II disor jason TAKE 1 TABLET BY MOUTH TWICE A DAY Last Documented On 06/08/2022 5:34PM By Randi Dhaliwal MD ; [facility] Focalin 10 MG OR TABS 01/09/2022 - 02/06/2022 Provider: FRANCINE DHALIWAL MD Diagnosis: Attn-defct hyper activity disorder, predom inattentive type as directed -- 1 tab in am a nd 1 tab at 12 noon Last Documented On 06/08/2022 5:34PM By Randi Dhlaiwal MD ; [facility] Focalin 10 MG OR TABS 12/10/2021 - 01/09/2022 Provider: FRANCINE DHALIWAL MD Diagnosis: Attn-defct hyper activity disorder, predom inattentive type as directed -- 1 tab in am a nd 1 tab at 12 noon Last Documented On 06/08/2022 5:34PM By Randi Dhaliwal MD ; [facility] Vilazodone HCl 40 MG OR TABS 11/28/2021 - 11/07/2022 Provider: FRANCINE DHALIWAL MD Diagnosis: Major depressive disorder, recurrent, moderate 1 tablet every morning with food Last Documented On 11/07/2022 5:28PM By Randi Dhaliwal MD ; [facility] Vitamin D (Ergocalciferol) 1.25 MG (83942 UT) OR CAPS 11/22/2021 - 03/05/2023 Provider: FRANCINE DHALIWAL MD Diagnosis: Vitamin D defici ency, unspecified TAKE 1 CAPSULE BY MOUTH ONCE A WEEK Last Documented On 03/05/2023 4:41PM By MAXIMO EVANS ; [facility] Focalin 10 MG OR TABS 11/09/2021 - 12/10/2021 Provider: FRANCINE DHALIWAL MD Diagnosis: Attn-defct hyper activity disorder, predom inattentive type as directed -- 1 tab in am a nd 1 tab at 12 noon Last Documented On 06/08/2022 5:34PM By Randi Dhaliwal MD ; [facility] Vilazodone HCl 20 MG OR TABS 10/31/2021 - 11/06/2022 Provider: FRANCINE DHALIWAL MD Diagnosis: Major depressive disorder, recurrent, moderate 1 tablet every morning with food Last Documented On 11/06/2022 4:37PM By MAXIMO EVANS ; [facility] Focalin 10 MG OR TABS 10/09/2021 - 11/09/2021 Provider: FRANCINE DHALIWAL MD Diagnosis: Attn-defct hyper activity disorder, predom inattentive type as directed -- 1 tab in am a nd 1 tab at 12 noon Last Documented On 06/08/2022 5:34PM By Randi Dhaliwal MD ; [facility] Focalin 10 MG OR TABS 09/13/2021 - 10/09/2021 Provider: FRANCINE DHALIWAL MD Diagnosis: Attn-defct hyper activity disorder, predom inattentive type as directed -- 1 tab in am a nd 1 tab at 12 noon Last Documented On 06/08/2022 5:34PM By Randi Dhaliwal MD ; [facility] Focalin 10 MG OR TABS 08/14/2021 - 09/13/2021 Provider: FRANCINE DHALIWAL MD Diagnosis: Attn-defct hyper activity disorder, predom inattentive type as directed -- 1 tab in am a nd 1 tab at 12 noon Last Documented On 06/08/2022 5:34PM By Randi Dhaliwal MD ; [facility] lamoTRIgine 150 MG OR TABS 07/16/2021 - 01/23/2022 Provider: FRANCINE DHALIWAL MD Diagnosis: Bipolar II disor jason One tablet twice a day Last Documented On 06/08/2022 5:34PM By Randi Dhaliwal MD ; [facility] Focalin 10 MG OR TABS 07/10/2021 - 08/14/2021 Provider: FRANCINE DHALIWAL MD Diagnosis: Attn-defct hyper activity disorder, predom inattentive type as directed -- 1 tab in am a nd 1 tab at 12 noon Last Documented On 06/08/2022 5:34PM By Randi Dhaliwal MD ; [facility] Focalin 10 MG OR TABS 06/06/2021 - 07/10/2021 Provider: FRANCINE DHALIWAL MD Diagnosis: Attn-defct hyper activity disorder, predom inattentive type as directed -- 1 tab in am a nd 1 tab at 12 noon Last Documented On 06/08/2022 5:34PM By Randi Dhaliwal MD ; [facility] Trintellix 20 MG OR TABS 05/03/2021 - 07/16/2021 Provider: FRANCINE DHALIWAL MD Diagnosis: Major depressive disorder, recurrent, moderate One tablet daily Last Documented On 06/08/2022 5:34PM By Randi Dhaliwal MD ; [facility] lamoTRIgine 200 MG OR TABS 05/03/2021 - 08/21/2021 Provider: FRANCINE DHALIWAL MD Diagnosis: Bipolar II disor jason TAKE 1 TABLET BY MOUTH EVERY DAY Last Documented On 06/08/2022 5:34PM By Randi Dhaliwal MD ; [facility] Focalin 10 MG OR TABS 05/03/2021 - 06/06/2021 Provider: FRANCINE DHALIWAL MD Diagnosis: Attn-defct hyper activity disorder, predom inattentive type as directed -- 1 tab in am a nd 1 tab at 12 noon Last Documented On 06/08/2022 5:34PM By Randi Dhaliwal MD ; [facility] HYDROcodone-Acetaminophen 10-325 MG OR TABS 05/02/2021 - 02/06/2022 Provider: Diagnosis: 1-3 times daily as needed #8 4 #903/01/01, 03/20/21, 02/18/21, 01/15/21, 12/14/20, 11/16/20, 10/12/20, 09/13/20, 08/16/20, 07/20/20, 06/20/20, 05/19/20, 04/18/20, 03/22/20, 02/21/20, 01/24/20, 09/30/19, , 08/10/19 Last Documented On 06/08/2022 5:34PM By MAXIMO EVANS ; [facility] Focalin 10 MG OR TABS 03/30/2021 - 05/03/2021 Provider: FRANCINE DHALIWAL MD Diagnosis: Attn-defct hyper activity disorder, predom inattentive type as directed -- 1 tab in am a nd 1 tab at 1 pm Last Documented On 06/08/2022 5:34PM By Randi Dhaliwal MD ; [facility] Trintellix 10 MG OR TABS 03/13/2021 - 05/03/2021 Provider: FRANCINE DHALIWAL MD Diagnosis: Major depressive disorder, recurrent, moderate One tablet daily Last Documented On 06/08/2022 5:34PM By Randi Dhaliwal MD ; [facility] Dexmethylphenidate HCl 10 MG OR TABS 03/13/2021 - 03/30/2021 Provider: FRANCINE DHALIWAL MD Diagnosis: Attn-defct hyperactivity disorder, predom inattentive type 1 tablet every morning Last Documented On 06/08/2022 5:34PM By Randi Dhaliwal MD ; [facility] Focalin 10 MG OR TABS 02/05/2021 - 03/30/2021 Provider : FRANCINE DHALIWAL MD Diagnosis: as directed -- 1 tab in am and 1 tab at 1 pm Last Documented On 06/08/2022 5:34PM By Randi Dhaliwal MD ; [facility] Viibryd 40 MG OR TABS 01/10/2021 - 05/03/2021 Provider: FRANCINE MARTINEZ MD Diagnosis: Major depressive disorder, recurrent, moderate 1 tablet every morning with food Last Documented On 06/08/2022 5:34PM By Randi Dhaliwal MD ; [facility] HYDROcodone-Acetaminophen 10-325 MG OR TABS 01/09/2021 - 05/02/2021 Provider: Diagnosis: 1-3 times daily as needed #8 4 #90 12/14/20, 11/16/20, 10/12/20, 09/13/20, 08/16/20, 07/20/20, 06/20/20, 05/19/20, 04/18/20, 03/22/20, 02/21/20, 01/24/20, 09/30/19, , 08/10/19, 07/11/19, 06/13/19, 05/16/19, 04/19/19 Last Documented On 06/08/2022 5:34PM By MAXIMO EVANS ; [facility] Focalin 10 MG OR TABS 12/27/2020 - 02/05/2021 Provider : FRANCINE DHALIWAL MD Diagnosis: as directed -- 1 tab in am and 1 tab at 1 pm Last Documented On 06/08/2022 5:34PM By Randi Dhaliwal MD ; [facility] Focalin 10 MG OR TABS 11/23/2020 - 12/27/2020 Provider : FRANCINE DHALIWAL MD Diagnosis: as directed -- 1 tab in am and 1 tab at 1 pm Last Documented On 06/08/2022 5:34PM By Randi Dhaliwal MD ; [facility] Vitamin D (Ergocalciferol) 1.25 MG (53074 UT) OR CAPS 11/08/2020 - 11/22/2021 Provider: FRANCINE DHALIWAL MD Diagnosis: Vitamin D defici ency, unspecified as directed -- once a week Last Documented On 06/08/2022 5:34PM By Randi Dhaliwal MD ; [facility] HYDROcodone-Acetaminophen 10-325 MG OR TABS 11/07/2020 - 01/09/2021 Provider: Diagnosis: 1-3 times daily as needed #8 4 #90 10/12/20, 09/13/20, 08/16/20, 07/20/20, 06/20/20, 05/19/20, 04/18/20, 03/22/20, 02/21/20, 01/24/20, 09/30/19, , 08/10/19, 07/11/19, 06/13/19, 05/16/19, 04/19/19, 03/23/19, 02/24/19, Last Documented On 06/08/2022 5:34PM By MAXIMO EVANS ; [facility] lamoTRIgine 200 MG OR TABS 11/03/2020 - 05/03/2021 Provider: FRANCINE DHALIWAL MD Diagnosis: Bipolar II disor jason One tablet daily Last Documented On 06/08/2022 5:34PM By Randi Dhaliwal MD ; [facility] lamoTRIgine 200 MG OR TABS 11/03/2020 - 11/08/2020 Pro vider: Diagnosis: Bipolar II disor jason 1 tab daily Last Documented On 06/08/2022 5:34PM By JOIE ARCHIBALD ; [facility] Rexulti 1 MG OR TABS 10/17/2020 - 11/08/2020 Provider: FRANCINE DHALIWAL MD Diagnosis: Major depressive disorder, recurrent, moderate as directed - 1/2 tab a day for 1 week then 1 tab a day thereafter Last Documented On 06/08/2022 5:34PM By Randi Dhaliwal MD ; [facility] Focalin 10 MG OR TABS 10/17/2020 - 11/23/2020 Provider : FRANCINE DHALIWAL MD Diagnosis: as directed -- 1 tab in am and 1 tab at 1 pm Last Documented On 06/08/2022 5:34PM By Randi Dhaliwal MD ; [facility] Chantix Continuing Month Jake 1 MG OR TABS 09/12/2020 - 11/08/2020 Provider: FRANCINE DHALIWAL MD Diagnosis: Nicotine depende nce, unspecified, uncomplicated One tablet twice a day Last Documented On 06/08/2022 5:34PM By Randi Dhaliwal MD ; [facility] HYDROcodone-Acetaminophen 10-325 MG OR TABS 09/11/2020 - 11/07/2020 Provider: Diagnosis: 1-3 times daily as needed #8 4 08/16/20, 07/20/20, 06/20/20, 05/19/20, 04/18/20, 03/22/20, 02/21/20, 01/24/20, 09/30/19, , 08/10/19, 07/11/19, 06/13/19, 05/16/19, 04/19/19, 03/23/19, 02/24/19, 01/25/19, 12/28/18, Last Documented On 06/08/2022 5:34PM By MAXIMO EVANS ; [facility] Focalin 10 MG OR TABS 09/11/2020 - 10/17/2020 Provider : FRANCINE DHALIWAL MD Diagnosis: as directed -- 1 tab in am and 1 tab at 1 pm Last Documented On 06/08/2022 5:34PM By Randi Dhaliwal MD ; [facility] Focalin 10 MG OR TABS 07/24/2020 - 09/11/2020 Provider: FRANCINE DHALIWAL MD Diagnosis: Attention-defici t hyperactivity disorder, other type as directed -- 1 tab in am a nd 1 tab at 1 pm Last Documented On 06/08/2022 5:34PM By Randi Dhaliwal MD ; [facility] Focalin 10 MG OR TABS 06/13/2020 - 07/24/2020 Provider: FRANCINE DHALIWAL MD Diagnosis: Attention-defici t hyperactivity disorder, other type as directed -- 1 tab in am a nd 1 tab at 1 pm Last Documented On 06/08/2022 5:34PM By Randi Dhaliwal MD ; [facility] lamoTRIgine 200 MG OR TABS 04/27/2020 - 11/08/2020 Provider: FRANCINE DHALIWAL MD Diagnosis: Bipolar II disor jason TAKE 1 TABLET BY MOUTH EVERY DAY Last Documented On 06/08/2022 5:34PM By Randi Dhaliwal MD ; [facility] Focalin 10 MG OR TABS 04/17/2020 - 06/13/2020 Provider: FRANCINE DHALIWAL MD Diagnosis: Attention-defici t hyperactivity disorder, other type as directed -- 1 tab in am a nd 1 tab at 1 pm Last Documented On 06/08/2022 5:34PM By Randi Dhaliwal MD ; [facility] Viibryd 40 MG OR TABS 03/27/2020 - 01/10/2021 Provider: FRANCINE MARTINEZ MD Diagnosis: Major depressive disorder, recurrent, moderate 1 tablet every morning with food Last Documented On 06/08/2022 5:34PM By Randi Dhaliwal MD ; [facility] Viagra 100 MG OR TABS 03/27/2020 - 11/08/2020 Provider: FRANCINE DHALIWAL MD Diagnosis: Male erectile dysfunction, unspecified as directed --1 a day as needed Last Documented On 06/08/2022 5:34PM By Randi Dhaliwal MD ; [facility] HYDROcodone-Acetaminophen 10-325 MG OR TABS 03/22/2020 - 09/11/2020 Provider: Diagnosis: 1-3 times daily as needed #8 4 02/21/20, 01/24/20, 09/30/19, , 08/10/19, 07/11/19, 06/13/19, 05/16/19, 04/19/19, 03/23/19, 02/24/19, 01/25/19, 12/28/18, 11/23/18 Last Documented On 06/08/2022 5:34PM By MAXIMO EVANS ; [facility] Focalin 10 MG OR TABS 03/16/2020 - 04/17/2020 Provider: FRANCINE DHALIWAL MD Diagnosis: Attention-defici t hyperactivity disorder, other type as directed -- 1 tab in am a nd 1 tab at 1 pm Last Documented On 06/08/2022 5:34PM By Randi Dhaliwal MD ; [facility] lamoTRIgine 200 MG OR TABS 02/01/2020 - 04/27/2020 Provider: FRANCINE DHALIWAL MD Diagnosis: Bipolar II disor jason One tablet daily Last Documented On 06/08/2022 5:34PM By Randi Dhaliwal MD ; [facility] Focalin 10 MG OR TABS 01/24/2020 - 03/16/2020 Provider: FRANCINE DHALIWAL MD Diagnosis: Attention-defici t hyperactivity disorder, other type as directed -- 1 tab in am a nd 1 tab at 1 pm Last Documented On 06/08/2022 5:34PM By Randi Dhaliwal MD ; [facility] Viibryd 40 MG OR TABS 12/24/2019 - 03/22/2020 Provider: FRANCINE MARTINEZ MD Diagnosis: Major depressive disorder, recurrent, moderate 1 tablet every morning with food Last Documented On 06/08/2022 5:34PM By Randi Dhaliwal MD ; [facility] Focalin 10 MG OR TABS 12/13/2019 - 01/24/2020 Provider: FRANCINE DHALIWAL MD Diagnosis: Attention-defici t hyperactivity disorder, other type as directed -- 1 tab in am a nd 1 tab at 1 pm Last Documented On 06/08/2022 5:34PM By Randi Dhaliwal MD ; [facility] lamoTRIgine 200 MG OR TABS 11/15/2019 - 02/01/2020 Provider: FRANCINE DHALIWAL MD Diagnosis: Bipolar II disor jason One tablet daily Last Documented On 06/08/2022 5:34PM By Randi Dhaliwal MD ; [facility] Focalin 10 MG OR TABS 10/26/2019 - 12/13/2019 Provider: FRANCINE DHALIWAL MD Diagnosis: Attention-defici t hyperactivity disorder, other type as directed -- 1 tab in am a nd 1 tab at 1 pm Last Documented On 06/08/2022 5:34PM By Randi Dhaliwal MD ; [facility] Focalin 10 MG OR TABS 09/17/2019 - 10/26/2019 Provider: FRANCINE DHALIWAL MD Diagnosis: Attention-defici t hyperactivity disorder, other type as directed -- 1 tab in am a nd 1 tab at 1 pm Last Documented On 06/08/2022 5:34PM By Randi Dhaliwal MD ; [facility] HYDROcodone-Acetaminophen 10-325 MG OR TABS 08/30/2019 - 03/22/2020 Provider: Diagnosis: 1-3 times daily as needed #8 4 08/10/19, 07/11/19, 06/13/19, 05/16/19, 04/19/19, 03/23/19, 02/24/19, 01/25/19, 12/28/18, 11/23/18 Last Documented On 06/08/2022 5:34PM By MAXIMO EVANS ; [facility] Focalin 10 MG OR TABS 08/19/2019 - 09/17/2019 Provider: FRANCINE DHALIWAL MD Diagnosis: Attention-defici t hyperactivity disorder, other type as directed -- 1 tab in am a nd 1 tab at 1 pm Last Documented On 06/08/2022 5:34PM By Randi Dhaliwal MD ; [facility] Focalin 10 MG OR TABS 07/09/2019 - 08/19/2019 Provider: FRANCINE DHALIWAL MD Diagnosis: Attention-defici t hyperactivity disorder, other type as directed -- 1 tab in am a nd 1 tab at 1 pm Last Documented On 06/08/2022 5:34PM By Randi Dhaliwal MD ; [facility] Focalin 10 MG OR TABS 05/27/2019 - 07/09/2019 Provider: FRANCINE DHALIWAL MD Diagnosis: Attention-defici t hyperactivity disorder, other type as directed -- 1 tab in am a nd 1 tab at 1 pm Last Documented On 06/08/2022 5:34PM By Randi Dhaliwal MD ; [facility] Omeprazole 20 MG OR TBEC 04/13/2019 - 11/08/2020 Provider: FRANCINE DHALIWAL MD Diagnosis: Gastro-esophagea l reflux disease without esophagitis as directed - 1 tab daily Last Documented On 06/08/2022 5:34PM By Randi Dhaliwal MD ; [facility] Mydayis 25 MG OR CP24 04/13/2019 - 05/13/2019 Provider: FRANCINE DHALIWAL MD Diagnosis: Attn-defct hyper activity disorder, predom inattentive type 1 Capsule every morning Last Documented On 06/08/2022 5:34PM By Randi Dhaliwal MD ; [facility] Focalin 10 MG OR TABS 04/13/2019 - 05/27/2019 Provider: FRANCINE DHALIWAL MD Diagnosis: Attention-defici t hyperactivity disorder, other type as directed -- 1 tab in am a nd 1 tab at 1 pm Last Documented On 06/08/2022 5:34PM By Randi Dhaliwal MD ; [facility] lamoTRIgine 200 MG OR TABS 04/13/2019 - 11/15/2019 Provider: FRANCINE DHALIWAL MD Diagnosis: Bipolar II disor jason One tablet daily Last Documented On 06/08/2022 5:34PM By Randi Dhlaiwal MD ; [facility] Focalin 10 MG OR TABS 03/25/2019 - 04/13/2019 Provider: FRANCINE DHALIWAL MD Diagnosis: Attention-defici t hyperactivity disorder, other type as directed -- 1 tab in am a nd 1 tab at 1 pm Last Documented On 06/08/2022 5:34PM By Randi Dhaliwal MD ; [facility] Focalin 10 MG OR TABS 02/22/2019 - 03/25/2019 Provider: FRANCINE DHALIWAL MD Diagnosis: Attention-defici t hyperactivity disorder, other type as directed -- 1 tab in am a nd 1 tab at 1 pm Last Documented On 06/08/2022 5:34PM By Randi Dhaliwal MD ; [facility] Focalin 10 MG OR TABS 01/15/2019 - 02/22/2019 Provider: FRANCINE DHALIWAL MD Diagnosis: Attention-defici t hyperactivity disorder, other type as directed -- 1 tab in am a nd 1 tab at 1 pm Last Documented On 06/08/2022 5:34PM By Randi Dhaliwal MD ; [facility] Focalin 10 MG OR TABS 12/14/2018 - 01/15/2019 Provider: FRANCINE DHALIWAL MD Diagnosis: Attention-defici t hyperactivity disorder, other type as directed -- 1 tab in am a nd 1 tab at 1 pm Last Documented On 06/08/2022 5:34PM By Randi Dhaliwal MD ; [facility] Viibryd 40 MG OR TABS 12/09/2018 - 12/24/2019 Provider: FRANCINE MARTINEZ MD Diagnosis: Major depressive disorder, recurrent, moderate 1 tablet every morning with food Last Documented On 06/08/2022 5:34PM By Randi Dhaliwal MD ; [facility] Chantix Starting Month Jake 0.5 MG X 11 & 1 MG X 42 OR TABS 11/15/2018 - 11/08/2020 Provider: FRANCINE DHALIWAL MD Diagnosis: Nicotine depende nce, unspecified, uncomplicated as directed -- 1 tab daily Last Documented On 06/08/2022 5:34PM By Randi Dhaliwal MD ; [facility] Viagra 100 MG OR TABS 11/15/2018 - 03/22/2020 Provider: FRANCINE DHALIWAL MD Diagnosis: Male erectile dysfunction, unspecified as directed --1 a day as needed Last Documented On 06/08/2022 5:34PM By Randi Dhaliwal MD ; [facility] QUEtiapine Fumarate 25 MG OR TABS 11/15/2018 - 10/31/2021 Provider: FRANCINE DHALIWAL MD Diagnosis: Generalized anxi ety disorder One tablet at bed time prn o nly -- has not been taking as much -- only 2 x a month if at all Last Documented On 06/08/2022 5:34PM By Randi Dhaliwal MD ; [facility] Chantix Starting Month Jake 0.5 MG X 11 & 1 MG X 42 OR TABS 10/22/2018 - 12/14/2018 Provider: FRANCINE DHALIWAL MD Diagnosis: Nicotine depende nce, unspecified, uncomplicated as directed -- please follow directions Last Documented On 06/08/2022 5:34PM By Randi Dhaliwal MD ; [facility] Vyvanse 30 MG OR CAPS 10/14/2018 - 12/14/2018 Provider: FRANCINE DHALIWAL MD Diagnosis: Attention-defici t hyperactivity disorder, other type 1 Capsule every morning Last Documented On 06/08/2022 5:34PM By Randi Dhaliwal MD ; [facility] lamoTRIgine 200 MG OR TABS 10/14/2018 - 04/13/2019 Provider: FRANCINE DHALIWAL MD Diagnosis: Bipolar II disor jason One tablet daily Last Documented On 06/08/2022 5:34PM By Randi Dhaliwal MD ; [facility] Focalin 10 MG OR TABS 10/14/2018 - 12/14/2018 Provider: FRANCINE DHALIWAL MD Diagnosis: Attention-defici t hyperactivity disorder, other type as directed -- 1 tab in am a nd 1 tab at 1 pm Last Documented On 06/08/2022 5:34PM By Randi Dhaliwal MD ; [facility] Focalin 10 MG OR TABS 08/31/2018 - 12/14/2018 Provider: FRANCINE DHALIWAL MD Diagnosis: Attn-defct hyper activity disorder, predom inattentive type as directed --1 tab in am an d 1 tab at noon Last Documented On 06/08/2022 5:34PM By Randi Dhaliwal MD ; [facility] Viibryd 40 MG OR TABS 08/31/2018 - 12/09/2018 Provider: FRANCINE MARTINEZ MD Diagnosis: Major depressive disorder, recurrent, moderate 1 tablet every morning with food Last Documented On 06/08/2022 5:34PM By Randi Dhaliwal MD ; [facility] Gabapentin 100 MG OR CAPS 08/25/2018 - 08/31/2019 Prov ider: Diagnosis: 1 cap at bedtime as needed Last Documented On 06/08/2022 5:34PM By MAXIMO EVANS ; [facility] Cyclobenzaprine HCl 10 MG OR TABS 07/28/2018 - 024 Provider: Diagnosis: 1 tab prn Last Documented On 07/02/2023 5:28PM By Randi Dhaliwal MD ; [facility] Focalin 10 MG OR TABS 07/15/2018 - 08/31/2018 Provider: FRANCINE DHALIWAL MD Diagnosis: Attn-defct hyper activity disorder, predom inattentive type as directed --1 tab in am an d 1 tab at noon Last Documented On 06/08/2022 5:34PM By Randi Dhaliwal MD ; [facility] QUEtiapine Fumarate 25 MG OR TABS 04/27/2018 - 10/14/2018 Provider: FRANCINE DHALIWAL MD Diagnosis: Generalized anxi ety disorder One tablet at bed time prn o nly -- has not been taking as much -- only 2 x a month if at all Last Documented On 06/08/2022 5:34PM By Randi Dhaliwal MD ; [facility] lamoTRIgine 200 MG OR TABS 04/27/2018 - 10/14/2018 Provider: FRANCINE DHALIWAL MD Diagnosis: Bipolar II disor jason One tablet daily Last Documented On 06/08/2022 5:34PM By Randi Dhaliwal MD ; [facility] Viibryd 40 MG OR TABS 04/27/2018 - 08/31/2018 Provider: FRANCINE MARTINEZ MD Diagnosis: Major depressive disorder, recurrent, moderate 1 tablet every morning with food Last Documented On 06/08/2022 5:34PM By Randi Dhaliwal MD ; [facility] Focalin 10 MG OR TABS 04/24/2018 - 07/15/2018 Provider: FRANCINE DHALIWAL MD Diagnosis: Attn-defct hyper activity disorder, predom inattentive type as directed --1 tab in am an d 1 tab at noon Last Documented On 06/08/2022 5:34PM By Randi Dhaliwal MD ; [facility] Focalin 10 MG OR TABS 03/25/2018 - 04/24/2018 Provider: FRANCINE DHALIWAL MD Diagnosis: Attn-defct hyper activity disorder, predom inattentive type as directed --1 tab in am an d 1 tab at noon Last Documented On 06/08/2022 5:34PM By Randi Dhaliwal MD ; [facility] lamoTRIgine 200 MG OR TABS 03/25/2018 - 04/24/2018 Provider: FRANCINE DHALIWAL MD Diagnosis: Bipolar II disor jason One tablet daily Last Documented On 06/08/2022 5:34PM By Randi Dhaliwal MD ; [facility] Vitamin D (Ergocalciferol) 1.25 MG (43436 UT) OR CAPS 03/11/2018 - 11/08/2020 Provider: FRANCINE DHALIWAL MD Diagnosis: Vitamin D defici ency, unspecified as directed -- once a week Last Documented On 06/08/2022 5:34PM By Randi Dhaliwal MD ; [facility] Vitamin D (Ergocalciferol) 1.25 MG (10882 UT) OR CAPS 03/11/2018 - 03/11/2018 Provider: FRANCINE DHALIWAL MD Diagnosis: Vitamin D defici ency, unspecified as directed -- once a week Last Documented On 06/08/2022 5:34PM By Randi Dhaliwal MD ; [facility] Focalin 10 MG OR TABS 02/17/2018 - 03/25/2018 Provider: FRANCINE DHALIWAL MD Diagnosis: Attn-defct hyper activity disorder, predom inattentive type as directed --1 tab in am an d 1 tab at noon Last Documented On 06/08/2022 5:34PM By Randi Dhaliwal MD ; [facility] Viibryd 40 MG OR TABS 02/04/2018 - 04/24/2018 Provider: FRANCINE MARTINEZ MD Diagnosis: Major depressive disorder, recurrent, moderate 1 tablet every morning with food Last Documented On 06/08/2022 5:34PM By Randi Dhaliwal MD ; [facility] Focalin 10 MG OR TABS 01/08/2018 - 02/17/2018 Provider: FRANCINE DHALIWAL MD Diagnosis: Attn-defct hyper activity disorder, predom inattentive type as directed --1 tab in am an d 1 tab at noon Last Documented On 06/08/2022 5:34PM By Randi Dhaliwal MD ; [facility] Chantix Starting Month Jake 0.5 MG X 11 & 1 MG X 42 OR TABS 01/02/2018 - 10/14/2018 Provider: FRANCINE DHALIWAL MD Diagnosis: Nicotine depende nce, unspecified, uncomplicated as directed -- this was pres cribed 12/2016 but pt did not follow through Last Documented On 06/08/2022 5:34PM By Randi Dhaliwal MD ; [facility] QUEtiapine Fumarate 25 MG OR TABS 01/02/2018 - 04/24/2018 Provider: FRANCINE DHALIWAL MD Diagnosis: Generalized anxi ety disorder One tablet at bed time prn o nly -- has not been taking as much -- only 2 x a month if at all Last Documented On 06/08/2022 5:34PM By Randi Dhaliwal MD ; [facility] lamoTRIgine 200 MG OR TABS 01/02/2018 - 03/25/2018 Provider: FRANCINE DHALIWAL MD Diagnosis: Bipolar II disor jason One tablet daily Last Documented On 06/08/2022 5:34PM By Randi Dhaliwal MD ; [facility] Viibryd 40 MG OR TABS 01/02/2018 - 02/04/2018 Provider: FRANCINE MARTINEZ MD Diagnosis: Major depressive disorder, recurrent, moderate 1 tablet every morning with food Last Documented On 06/08/2022 5:34PM By Randi Dhaliwal MD ; [facility] Viagra 100 MG OR TABS 12/30/2017 - 10/14/2018 Provider: FRANCINE DHALIWAL MD Diagnosis: Male erectile dysfunction, unspecified as directed --1 a day as needed Last Documented On 06/08/2022 5:34PM By Randi Dhaliwal MD ; [facility] Focalin 10 MG OR TABS 12/30/2017 - 01/08/2018 Provider: FRANCINE DHALIWAL MD Diagnosis: Attn-defct hyper activity disorder, predom inattentive type 1 tablet every morning Last Documented On 06/08/2022 5:34PM By Randi Dhaliwal MD ; [facility] lamoTRIgine 200 MG OR TABS 12/15/2017 - 12/30/2017 Provider: FRANCINE DHALIWAL MD Diagnosis: Bipolar II disor jason One tablet daily Last Documented On 06/08/2022 5:34PM By Randi Dhaliwal MD ; [facility] Viibryd 40 MG OR TABS 11/04/2017 - 12/30/2017 Provider: FRANCINE MARTINEZ MD Diagnosis: Major depressive disorder, recurrent, moderate 1 tablet every morning with food Last Documented On 06/08/2022 5:34PM By Randi Dhaliwal MD ; [facility] Viibryd 40 MG OR TABS 08/01/2017 - 11/04/2017 Provider: FRANCINE MARTINEZ MD Diagnosis: Major depressive disorder, recurrent, moderate 1 tablet every morning with food Last Documented On 06/08/2022 5:34PM By Randi Dhaliwal MD ; [facility] lamoTRIgine 200 MG OR TABS 05/26/2017 - 12/15/2017 Provider: FRANCINE DHALIWAL MD Diagnosis: Bipolar II disor jason One tablet daily Last Documented On 06/08/2022 5:34PM By Randi Dhaliwal MD ; [facility] Viagra 100 MG OR TABS 05/06/2017 - 12/14/2018 Provider : Diagnosis: Male erectile di sorder 1 a day as needed only Last Documented On 06/08/2022 5:34PM By JOIE ARCHIBALD ; [facility] Viagra 100 MG OR TABS 05/06/2017 - 12/30/2017 Provider : FRANCINE DHALIWAL MD Diagnosis: Male erectile di sorder as directed 1 a day as needed only Last Documented On 06/08/2022 5:34PM By Randi Dhaliwal MD ; [facility] Viibryd 40 MG OR TABS 04/16/2017 - 08/01/2017 Provider: FRANCINE MARTINEZ MD Diagnosis: Major depressive disorder, recurrent, moderate 1 tablet every morning with food Last Documented On 06/08/2022 5:34PM By Randi Dhaliwal MD ; [facility] QUEtiapine Fumarate 25 MG OR TABS 12/21/2016 - 12/30/2017 Provider: FRANCINE DHALIWAL MD Diagnosis: Generalized anxi ety disorder One tablet at bed time prn o nly -- has not been taking as much -- only 2 x a month if at all Last Documented On 06/08/2022 5:34PM By Randi Dhaliwal MD ; [facility] Viibryd 40 MG OR TABS 12/19/2016 - 04/16/2017 Provider: FRANCINE MARTINEZ MD Diagnosis: Major depressive disorder, recurrent, moderate 1 tablet every morning with food Last Documented On 06/08/2022 5:34PM By Randi Dhaliwal MD ; [facility] Chantix 1 MG OR TABS 12/19/2016 - 12/30/2017 Provider: FRANCINE DHALIWAL MD Diagnosis: Nicotine depende nce, unspecified, uncomplicated as directed -- 1 tab 2 x a day Last Documented On 06/08/2022 5:34PM By Randi Dhaliwal MD ; [facility] lamoTRIgine 200 MG OR TABS 12/19/2016 - 05/26/2017 Provider: FRANCINE DHALIWAL MD Diagnosis: Bipolar II disor jason One tablet daily Last Documented On 06/08/2022 5:34PM By Randi Dhaliwal MD ; [facility] lamoTRIgine 200 MG OR TABS 08/05/2016 - 12/19/2016 Provider: FRANCINE DHALIWAL MD Diagnosis: Bipolar II disor jason One tablet daily Last Documented On 06/08/2022 5:34PM By Randi Dhaliwal MD ; [facility] QUEtiapine Fumarate 25 MG OR TABS 07/13/2016 - 12/19/2016 Provider: FRANCINE DHALIWAL MD Diagnosis: Generalized anxi ety disorder One tablet at bed time prn o nly -- has not been taking as much Last Documented On 06/08/2022 5:34PM By Randi Dhaliwal MD ; [facility] Viagra 100 MG OR TABS 07/13/2016 - 12/21/2016 Provider : FRANCINE DHALIWAL MD Diagnosis: Male erectile di sorder as directed -- 1 a day as needed only Last Documented On 06/08/2022 5:34PM By Randi Dhaliwal MD ; [facility] lamoTRIgine 200 MG OR TABS 07/13/2016 - 08/05/2016 Provider: FRANCINE DHALIWAL MD Diagnosis: Bipolar II disor jason One tablet daily Last Documented On 06/08/2022 5:34PM By Randi Dhaliwal MD ; [facility] Viibryd 40 MG OR TABS 07/13/2016 - 12/19/2016 Provider: FRANCINE MARTINEZ MD Diagnosis: Major depressive disorder, recurrent, moderate 1 tablet every morning with food Last Documented On 06/08/2022 5:34PM By Randi Dhaliwal MD ; [facility] Chantix 1 MG OR TABS 07/12/2016 - 12/19/2016 Provider: FRANCINE DHALIWAL MD Diagnosis: Nicotine depende nce, unspecified, uncomplicated as directed -- 1 tab 2 x a day Last Documented On 06/08/2022 5:34PM By Randi Dhaliwal MD ; [facility] Viibryd 40 MG OR TABS 05/08/2016 - 07/12/2016 Provider: FRANCINE MARTINEZ MD Diagnosis: Major depressive disorder, recurrent, unspecified 1 tablet every morning with food Last Documented On 06/08/2022 5:34PM By Randi Dhaliwal MD ; [facility] lamoTRIgine 200 MG OR TABS 04/16/2016 - 07/12/2016 Provider: FRANCINE DHALIWAL MD Diagnosis: Bipolar II disor jason One tablet daily Last Documented On 06/08/2022 5:34PM By Randi Dhaliwal MD ; [facility] Chantix 1 MG OR TABS 03/08/2016 - 07/12/2016 Provider: FRANCINE DHALIWAL MD Diagnosis: Nicotine depende nce, unspecified, uncomplicated as directed -- 1 tab 2 x a day Last Documented On 06/08/2022 5:34PM By Randi Dhaliwal MD ; [facility] lamoTRIgine 200 MG OR TABS 03/08/2016 - 04/16/2016 Provider: FRANCINE DHALIWAL MD Diagnosis: Bipolar II disor jason One tablet daily Last Documented On 06/08/2022 5:34PM By Randi Dhaliwal MD ; [facility] QUEtiapine Fumarate 25 MG OR TABS 03/08/2016 - 07/12/2016 Provider: FRANCINE DHALIWAL MD Diagnosis: Oth insomnia not due to a substance or known physiol cond One tablet at bed time Last Documented On 06/08/2022 5:34PM By Randi Dhaliwal MD ; [facility] Viibryd 40 MG OR TABS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
--- OUTSIDE RECORDS SUMMARY | 2024-06-04 08:50 | XMS_ITS ---
Care Plan - [facility] Created on: June 04, 2024 JANKIMAXWELLBRIAN XIONG Hellen : 1970 Sex: Male Author Organization [facility] Address [address] [place] [address] Phone Care Team Providers Care Solar Business Developer Name Role Phone QUYEN CONNER, FRANCINE MENG Unavailable [phone]
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
--- OUTSIDE RECORDS SUMMARY | 2024-06-04 08:50 | XMS_ITS | Clinical Summary ---
Author Organization [facility] Address [address] [place] [address] Phone Care Team Providers Care Data Entry Supervisor Name Role Phone NIKHIL CONNER, PHILIP Jacobo Primary Care Provider + [phone] QUYEN CONNER, FRANCINE MENG Unavailable [phone] Reason for Visit and Chief Complaint * PHONE CALL Problems Includes: Problems addressed during this encounter and other active Problems Current Visit Onset Date Resolved Date Provider Conditio n Status Major Depression, Recurrent 01/05/2014 FRANCINE DHALIWAL MD Active Last Documented On 4 10:12AM ; [facility] Past Visits Onset Date Resolved Date Provider Condition Status Esophageal Reflux 04/13/2019 FRANCINE Armijo MD Active Last Documented On 0 10:58AM ; [facility] Nonorganic Sleep Apnea Obstructive 02/10/2019 Hellen DHALIWAL MD Active Last Documented On 0 2:21PM ; [facility] 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 01/08/2018 FRANCINE XIONG MD Active Last Documented On 8 3:14PM ; [facility] Vitamin Deficiency 10/11/2017 FRANCINE XIONG MD Active Last Documented On 01/02/2018 5:58PM ; [facility] Note: Vitamin D deficiency Obsessive Compulsive Disorder 09/10/2017 FRANCINE DHALIWAL MD Active Last Documented On 8 5:53PM ; [facility] Psychophysiological Insomnia 03/08/2016 FRANCINE DHALIWAL MD Active Last Documented On 7 4:59PM ; [facility] Nicotine Dependence 05/13/2014 FRANCINE MARTINEZ MD Active Last Documented On 7 5:13PM ; [facility] Generalized Anxiety Disorder 01/05/2014 FRANCINE DHALIWAL MD Active Last Documented On 4 10:48AM ; [facility] Bipolar II Disorder 10/11/2013 FRANCINE MARTINEZ MD Active Last Documented On 4 1:19AM ; [facility] Plan of Treatment No Plan of Treatment Recorded Assessments Includes: Assessments from this encounter Findings - Major depression, recurrent - Last Documented On 11/28/2021 11:01AM ; [facility] Medical Equipment - Implanted Devices Includes: Current Devices No Medical Equipment Recorded Medications Includes: Medications discussed during this encounter and other current Medications New / Renewed during this visit FRANCINE DHALIWAL MD on 11/28/2021 Vilazodone HCl 40 MG Oral Tablet Provider: FRANCINE DHALIWAL MD 90 day supply: 90 tablet, 3 refills Diagnosis: Major depressive disorder, recurrent, moderate 1 tablet every morning with food Pharmacy: [facility] [address] [facility], [address] - Last Documented On 10:16AM By Randi Dhaliwal MD ; [facility] Current Medications (continue as prescribed) QUEtiapine Fumarate 25 MG Oral Tablet 05/06/2022 Pro vider: Diagnosis: 1 tab at bedtime as needed Last Documented On 05/06/2022 5:13PM By MAXIMO EVANS ; [facility] Focalin 10 MG Oral Tablet 05/06/2022 Provider: FRANCINE DHALIWAL MD Diagnosis: Attn-defct hyper activity disorder, predom inattentive type as directed -- 1 tab in am a nd 1 tab at 12 noon Last Documented On 05/06/2022 6:08PM By Randi Dhaliwal MD ; [facility] Azstarys 52.3-10.4 MG Oral Capsule 05/06/2022 Provider: FRANCINE DHALIWAL MD Diagnosis: Attn-defct hyper activity disorder, predom inattentive type 1 Capsule every morning Last Documented On 05/06/2022 6:08PM By Randi Dhaliwal MD ; [facility] HYDROcodone-Acetaminophen 7. 5-325 MG Oral Tablet 01/07/2022 Provider: JEAN TAPIA MD Diagnosis: 1 - 3 times daily as needed 01/07/22 Last Documented On 02/06/2022 4:45PM By JOIE ARCHIBALD ; [facility] Vitamin D (Ergocalciferol) 1.25 MG (78086 UT) Oral Capsule 11/22/2021 Provider: FRANCINE DHALIWAL MD Diagnosis: Vitamin D defici ency, unspecified TAKE 1 CAPSULE BY MOUTH ONCE A WEEK Last Documented On 11/22/2021 8:08AM By Randi Dhaliwal MD ; [facility] Belsomra 10 MG Oral Tablet 10/31/2021 Provider: FRANCINE DHALIWAL MD Diagnosis: Psychophysiologi c insomnia One tablet at bed time Last Documented On 10/31/2021 5:17PM By Randi Dhaliwal MD ; [facility] Vilazodone HCl 20 MG Oral Tablet 10/31/2021 Provider: FRANCINE DHALIWAL MD Diagnosis: Major depressive disorder, recurrent, moderate 1 tablet every morning with food Last Documented On 10/31/2021 5:17PM By Randi Dhaliwal MD ; [facility] Sildenafil Citrate 20 MG Oral Tablet 09/12/2020 Provider: FRANCINE DHALIWAL MD Diagnosis: Male erectile di sorder as directed -- 1 tab a day a s needed only Last Documented On 09/12/2020 6:09PM By Randi Dhaliwal MD ; [facility] Cyclobenzaprine HCl 10 MG Oral Tablet 07/28/2018 Pro vider: JEAN TAPIA MD Diagnosis: 1 tab prn Last Documented On 10/14/2018 3:12PM By MAXIMO EVANS ; [facility] Suspended Medications lamoTRIgine 150 MG Oral Tablet 04/24/2022 Provider: FRANCINE DHALIWAL MD Diagnosis: Bipolar II disor jason TAKE 1 TABLET BY MOUTH TWICE A DAY Last Documented On 3 12:08PM By Randi Dhaliwal MD ; [facility] Past Medications on file Azstarys 39.2-7.8 MG Oral Capsule 02/07/2022 - 03/09/2022 Provider: FRANCINE DHALIWAL MD Diagnosis: Attn-defct hyper activity disorder, predom inattentive type 1 Capsule every morning Last Documented On 02/07/2022 3:04PM By Randi Dhaliwal MD ; [facility] Mydayis 25 MG Oral Capsule Extended Release 24 Hour 04/13/2019 - 05/13/2019 Provider: FRANCINE DHALIWAL MD Diagnosis: Attn-defct hyper activity disorder, predom inattentive type 1 Capsule every morning Last Documented On 0 11:16AM By Randi Dhaliwal MD ; [facility] Levofloxacin 500 MG Tablet 12/09/2014 - 12/23/2014 Pro vider: Diagnosis: Take 1 tablet by mouth twice daily until gone Last Documented On 5 1:37PM By RYNE EMERY LPN ; [facility] Cialis 20 MG Tablet 12/09/2014 - 12/12/2014 Provider: FRANCINE DHALIWAL MD Diagnosis: Male erectile dysfunction, unspecified as directed --given 3 tablet s samples of 20 mg --36 hour tablet Last Documented On 12/09/2014 2:07PM By Randi Dhaliwal MD ; [facility] Medications Administered Includes: Administered Medications from this [...] Diagnosis * PHONE CALL FRANCINE DHALIWAL MD [facility] 10/19/20 22 9:47AM 11:59PM Major Depression, Recurrent Insurance Includes: Active Insurance Policies Plan Name Member ID Group # Subscriber Relationship Effect tanja Dates - [facility] [id number] BRIAN FELIPE Self 08/10/2016 - Unknown Clinical Notes Includes: Clinical Notes from this encounter No Clinical Notes Recorded
--- OUTSIDE RECORDS SUMMARY | 2024-06-04 08:50 | XMS_ITS ---
Care Plan - [facility] Medical [facility] Created on: June 04, 2024 BRIAN FELIPE : 1970 Sex: Male Author Organization [facility] Medical [facility] Address [address] [place] [address] Phone Care Team Providers Care Format Proofreader Name Role Phone NIKHIL CONNER, PHILIP Jacobo Primary Care Provider + [phone] QUYEN CONNER, FRANCINE Archer [phone]
--- OUTSIDE RECORDS SUMMARY | 2024-06-04 08:50 | XMS_ITS | Referral Summary ---
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 Gender Identity Not on file Sexual Orientation Not on file Last Filed Vital Signs Vital Sign Reading Time Taken Comments Blood Pressure 116/68 02/19/2022 10:19 AM CLINICAL WRITER Pulse 78 02/19/2022 10:19 AM CLINICAL WRITER Temperature 37 C (98.6 F) 02/19/2022 10:19 AM CLINICAL WRITER Respiratory Rate 18 02/19/2022 10:19 AM CLINICAL WRITER Oxygen Saturation 97% 02/19/2022 10:19 AM CLINICAL WRITER Inhaled Oxygen Concentration - - Weight 84.8 kg (187 lb) 02/19/2022 10:19 AM CLINICAL WRITER Height 180.3 cm (5' 11 ) 02/19/2022 10:19 AM CLINICAL WRITER Body Mass Index 26.08 02/19/2022 10:19 AM CLINICAL WRITER Plan of Treatment Not on file Insurance CIG[employer] IBEW CIGNA IBEW Care Teams Storage Garage Manager Relationship Specialty Start Date End Date Stacie Ny MD [address] [facility] [address] [facility] [address] [place] [address] PCP - General Family Medicine 02/19/22
--- OUTSIDE RECORDS SUMMARY | 2024-06-04 08:50 | XMS_ITS | Encounter Summary ---
Author Organization [facility] Health Address [address] [facility] [place] [address] Care Team Providers Care Freight Rate Specialist Name Role Phone Marcello Briceño DO Primary Care Provider + Pcp, [facility] Primary Care Provide r Unavailable Encounter Details Date Type Department Care Team (Late st Contact Info) Description 02/17/2010 [facility] Visit EXTERNAL [facility] DEPT Unknown, Provider Social History Tobacco Use Types Packs/Day Years Used Date Smoking Tobacco: Every Day Cigarettes 1 20 Comments:not ready to quit Alcohol Use Standard Drinks/Week Comments Yes 0 (1 standard drink = 0.6 oz pur e alcohol) one 12 pack a week Sex and Gender Information Value Date Recorded Sex Assigned at Not on file 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
--- OUTSIDE RECORDS SUMMARY | 2024-06-04 08:51 | XMS_ITS | Clinical Summary ---
Author Organization 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 01/08/2018 Active Last Documented On 3 5:51PM ; [facility] Past Visits Onset Date Resolved Date Provider Condition Status Esophageal Reflux 04/13/2019 Active Last Documented On 3 5:52PM ; [facility] Nonorganic Sleep Apnea Obstructive 02/10/2019 Active Last Documented On 3 5:52PM ; [facility] Vitamin Deficiency 10/11/2017 Active Last Documented On 3 5:51PM ; [facility] Note: Vitamin D deficiency Psychophysiological Insomnia 03/08/2016 Active Last Documented On 3 5:50PM ; [facility] Nicotine Dependence 05/13/2014 Activ e Last Documented On 3 5:48PM ; [facility] Generalized Anxiety Disorder 01/05/2014 Active Last Documented On 3 5:47PM ; [facility] Major Depression, Recurrent 01/05/2014 Active Last Documented On 3 5:47PM ; [facility] Bipolar II Disorder 10/11/2013 Activ e Last Documented On 3 5:47PM ; [facility] Plan of Treatment Pending Tests Order Diagnosis Results Due Ordering P roelidader Lab Lipid Panel 03/19/23 FRANCINE HARPER MD Last Documented On 4 5:44PM ; [facility] Lab Vitamin D 03/19/23 FRANCINE DYER MD Last Documented On 4 5:44PM ; [facility] Lab CMP (FASTING) 03/19/23 FRANCINE DHALIWAL MD Last Documented On 4 5:44PM ; [facility] Assessments Includes: Assessments from this encounter Findings - Attention deficit disorder without hyperactivity, predominantly inattentive type - Last Documented On 04/22/2023 3:03PM ; [facility] Medical Equipment - Implanted Devices Includes: Current Devices No Medical Equipment Recorded Medications Includes: Medications discussed during this encounter and other current Medications New / Renewed during this visit FRANCINE DHALIWAL MD on 04/22/2023 Mydayis 25 MG Oral Capsule Extended Release 24 Hour Provider: FRANCINE DHALIWAL MD 30 day supply: 30 capsule, 0 refills Diagnosis: Attn-defct hyperactivity disorder, predom inattentive type 1 Capsule every morning Pharmacy: [facility] [address] [facility], [address] - Last Documented On 07/02/2023 5:17PM By Randi Dhaliwal MD ; [facility] Current Medications (continue as prescribed) Focalin 10 MG Oral Tablet 07/30/2023 Provider: FRANCINE DHALIWAL MD Diagnosis: Attn-defct hyper activity disorder, predom inattentive type as directed -- 1 tab in am a nd 1 tab at 12 noon Last Documented On 07/30/2023 3:13PM By Randi Dhaliwal MD ; [facility] Azstarys 52.3-10.4 MG Oral Capsule 07/30/2023 Provider: FRANCINE DHALIWAL MD Diagnosis: Attn-defct hyper activity disorder, predom inattentive type 1 Capsule every morning Last Documented On 07/30/2023 3:13PM By Randi Dhaliwal MD ; [facility] Ergocalciferol 1.25 MG (40774 UT) Oral Capsule 07/03/2023 Provider: FRANCINE MARTINEZ MD Diagnosis: Vitamin D defici ency, unspecified as directed 1 capsule once a week Last Documented On 07/03/2023 9:50PM By Randi Dhaliwal MD ; [facility] lamoTRIgine 150 MG Oral Tablet 05/06/2023 Provider: FRANCINE DHALIWAL MD Diagnosis: Bipolar II disor jason TAKE 1 TABLET BY MOUTH TWICE A DAY Last Documented On 05/06/2023 8:06AM By Randi Dhaliwal MD ; [facility] HYDROcodone-Acetaminophen 7.5-325 MG OR TABS Provider: Diagnosis: 1 - 3 times daily as needed 01/07/22 Last Documented On 06/08/2022 5:34PM By JOIE ARCHIBALD ; [facility] Belsomra 10 MG OR TABS 10/31/2021 Provider: ANDRE DHALIWAL MD Diagnosis: Psychophysiologi c insomnia One tablet at bed time Last Documented On 06/08/2022 5:34PM By Randi Dhaliwal MD ; [facility] Sildenafil Citrate 20 MG OR TABS 09/12/2020 Provider: FRANCINE DHALIWAL MD Diagnosis: Male erectile di sorder as directed -- 1 tab a day a s needed only Last Documented On 06/08/2022 5:34PM By Randi Dhaliwal MD ; [facility] Past Medications on file Vilazodone HCl 40 MG Oral Tablet 11/07/2022 - 11/02/2023 Provider: FRANCINE DHALIWAL MD Diagnosis: Major depressive disorder, recurrent, moderate 1 tablet every morning with food Last Documented On 11/07/2022 5:41PM By Randi Dhaliwal MD ; [facility] Azstarys 39.2-7.8 MG OR CAPS 02/07/2022 - 03/09/2022 Provider: FRANCINE DHALIWAL MD Diagnosis: Attn-defct hyper activity disorder, predom inattentive type 1 Capsule every morning Last Documented On 06/08/2022 5:34PM By Randi Dhaliwal MD ; [facility] Mydayis 25 MG OR CP24 04/13/2019 - 05/13/2019 Provider: FRANCINE DHALIWAL MD Diagnosis: Attn-defct hyper activity disorder, predom inattentive type 1 Capsule every morning Last Documented On 06/08/2022 5:34PM By Randi Dhaliwal MD ; [facility] Cialis 20 MG OR TABS 12/09/2014 - 12/12/2014 Provider: FRANCINE DHALIWAL MD Diagnosis: Male erectile dysfunction, unspecified as directed --given 3 tablet s samples of 20 mg --36 hour tablet Last Documented On 06/08/2022 5:34PM By Randi Dhaliwal MD ; [facility] levoFLOXacin 500 MG OR TABS 12/09/2014 - 12/23/2014 Pr ovider: Diagnosis: Take 1 tablet by mouth twice daily until gone Last Documented On 06/08/2022 5:34PM By RYNE EMERY LPN ; [facility] Medications Administered Includes: Administered Medications from this [...] Diagnosis * PHONE CALL FRANCINE DHALIWAL MD [facility] 04/22/19 24 2:38PM 11:59PM 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 He has not been able to get Dyanavel XR since the coupon is not working. It is over $600 without the coupon. He is asking for a replacement. His insurance company recommended Dextroamphetamine-Amphetamine ER or Dextroamphetamine ER or Lisdexamfetamine which he has already tried Vyvanse but had GI issues. He is open to any suggestion that Dr. Dhaliwal thinks is appropriate. pt phone # for return call: [phone] date/initials: 04/22/23 bk Current Medication - Azstarys 52.3-10.4 MG Oral Capsule 1 Capsule every morning, 30 days, 0 refills - Belsomra 10 MG Tablet One tablet at bed time One tablet at bed time, 30 days, 1 refills - Cyclobenzaprine HCl 10 MG Tablet as directed 1 tab prn, 30 days, 0 refills - Dyanavel XR 15 MG Oral Tablet Chewable Extended Release as directed - 1 tab at noon, 30 days, 0 refills - Ergocalciferol 1.25 MG (56454 UT) Oral Capsule as directed 1 capsule [...] A DAY, 90 days, 3 refills - Methylphenidate HCl 20 MG Oral Tablet as directed - 1 tab at 1 pm, 30 days, 0 refills - Sildenafil Citrate 20 MG Tablet as directed as directed -- 1 tab a day as needed only, 30 days, 3 refills - Vilazodone HCl 40 MG Oral Tablet 1 tablet every morning with food, 90 days, 3 refills User Defined 4 [...] Belsomra 10 mg -- rarely takes it Allergies - No Known Allergies Assessment - Attention deficit disorder without hyperactivity, predominantly inattentive type Plan StartCited - Attn-defct hyperactivity disorder, predom inattentive type Mydayis 25 MG capsule 1 Capsule every morning, 30 days, 0 refills EndCited StartCited - Other PHY ORDER/COMMENT I escribed the generic of Mydayis which is Dextroamphetamine-Amphetamine ER 25 mg 1 cap in am for $33. I called pt and left him a message. I explained risks/benefits of generic Mydayis similar to other ADHD med. If he has any issues with it like side effects to please give the office a call. EndCited
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
--- OUTSIDE RECORDS SUMMARY | 2024-06-04 08:51 | XMS_ITS | Clinical Summary ---
Author Organization [facility] [employer] Address [address] [place] [address] Care Team Providers Care Aviation Operations Specialist Name Role Phone Pcp, Will Taylor [facility] Primary Care Provide r Unavailable Source Comments [facility],non-owned Affiliates and Associated Physician Practices is amultiple site organization consisting of ambulatory clinics and hospital sitesin [place], [place], [place] and [place]. This disclosure is being madepursuant to the Care Everywhere program and may not contain all information available regarding this patient. Last updated 17.[facility] [employer] Allergies No known active allergies Medications * Be aware that medications may not be up to date on this document. Alwaysverify current medications with the patient. citalopram (CELEXA) 40 MG tablet Take by mouth. Take 1 and 1/2 TABLETS DAILY. Active ciclesonide (OMNARIS) 50 MCG/ACT SUSP [place] 2 Sprays into each nostril 2 times daily. 1 0 04/17/2009 Active tadalafil (CIALIS) 5 MG tablet Take 1 Tab by mouth once as needed for 1 dose. 30 Tab 1 08/01/2010 Active phentermine (ADIPEX-P) 37.5 MG tablet Take 1 Tab by mouth daily before breakfast. 30 Tab 0 11/02/2010 Active ALPRAZolam (XANAX) 0.5 MG tablet Take 1 Tab by mouth nightly as needed for Anxiety. 30 Tab 0 11/02/2010 Active phentermine (ADIPEX-P) 37.5 MG tablet Take 1 Tab by mouth daily before breakfast. 30 Tab 0 11/30/2010 Active traMADol (ULTRAM) 50 MG tablet Take 1 Tab by mouth every 6 hours as needed for Pain. 50 Tab 0 12/19/2010 Active hydrocodone-elda taminophen (VICODIN) 5-500 MG tablet Take 1 Tab by mouth every 8 hours as needed. 30 Tab 0 01/02/2011 Active Active Problems Problem Noted Date Diagnosed Date Pain in joint, multiple sites 11/30/2010 Back pain 11/30/2010 Sinusitis 04/20/2008 Overview (04/20/2008): Mild Allergic state 04/20/2008 Overview (11/10/2014): chronic Depression 04/20/2008 Overview (04/20/2008): chronic Immunizations Immunization Administration Dates Next Due INFLUENZA VACCINE 11/30/2007 TETANUS 12/07/2004 Social History Tobacco Use Types Packs/Day Years Used Date Smoking Tobacco: Every Day Cigarettes 1 20 Smokeless Tobacco: Former Quit: 09/10/1990 Comments:not ready to quit Alcohol Use Standard Drinks/Week Comments Yes 0 (1 standard drink = 0.6 oz pur e alcohol) one 12 pack a week Sex and Gender Information Value Date Recorded Sex Assigned at Not on file Legal Sex Male 4:28 AM [employer] Gender Identity Not on file Sexual Orientation Not on file Last Filed Vital Signs Vital Sign Reading Time Taken Comments Blood Pressure 132/76 11/30/2010 2:55 PM CDT Pulse - - Temperature - - Respiratory Rate - - Oxygen Saturation - - Inhaled Oxygen Concentration - - Weight 83 kg (183 lb) 11/30/2010 2:55 PM CDT Height 180.3 cm (5' 11 ) 11/30/2010 2:55 PM CDT Body Mass Index 25.52 11/30/2010 2:55 PM CDT Plan of Treatment Health Maintenance Due Date Last Done Comments COLOGUARD (AGES 45-75) - COL ON CA SCREENING 1968 CT COLONOGRAPHY - COLON CA SCREENING 1968 FIT - COLON CA SCREENING 1968 FLEX SIG - COLON CA SCREENING 1968 LIPID TESTING 1968 HIV SCREENING 02/24/1983 HEPATITIS C SCREENING 02/20/1986 HEPATITIS B VACCINE (1 of 3 - 19+ 3-dose series) 02/24/1987 PNEUMOCOCCAL VACCINE 50+ (1 of 2 - PCV) 02/24/1987 COLON MONITORING 07/24/2014 07/24/2009 (Previously completed), 07/24/2009 Colorectal Cancer Screening 07/24/2014 DTAP/TDAP/TD VACCINES (2 - T d or Tdap) 12/07/2014 12/07/2004 ZOSTER VACCINE (1 of 2) 02/24/2018 COLONOSCOPY - COLON CA SCREENING 07/25/2019 07/24/2009 COVID-19 VACCINE (1 - 2023-2 5 season) 2023 DEPRESSION SCREENING 02/11/2024 INFLUENZA VACCINE (Season Ended) 2024 11/30/2007 HIB VACCINE Aged Out No longer eligi ble based on patient's age to complete this topic HPV VACCINE Aged Out No longer eligi ble based on patient's age to complete this topic MENINGOCOCCAL (Group B) VACCINE SHARED DECISION-MAKING Aged Out No longer eligible based on patient's age to complete this topic MENINGOCOCCAL GROUPS A/C/Y/W VACCINE Aged Out No longer eligible b ased on patient's age to complete this topic Procedures Procedure Name Priority Date/Time Associated Diagnosis Comments ENDOSCOPY, COLON, SCREENING Routine 07/24/2009 from Last 3 Months or Most Recently Relevant to Health Maintenance Results * ENDOSCOPY, COLON, SCREENING (07/24/2009) Marcello Briceño DO GI PROCEDURE ORDERABLES Final Result from Last 3 Months or Most Recently Relevant to Health Maintenance Insurance [facility] Advance Directives Documents on File Type Date 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
--- OUTSIDE RECORDS SUMMARY | 2024-06-04 08:51 | XMS_ITS | Clinical Summary ---
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 01/08/2018 FRANCINE DHALIWAL MD Active Last Documented On 8 3:14PM ; [facility] Past Visits Onset Date Resolved Date Provider Condition Status Esophageal Reflux 04/13/2019 FRANCINE Armijo MD Active Last Documented [facility] 0 10:58AM [facility] Apnea Obstructive 02/10/2019 Hellen DHALIWAL MD Active Last Documented On 0 2:21PM ; [facility] Vitamin Deficiency 10/11/2017 FRANCINE XIONG MD Active Last Documented On 01/02/2018 5:58PM ; [facility] Note: Vitamin D deficiency Obsessive Compulsive Disorder 09/10/2017 FRANCINE DHALIWAL MD Active Last Documented On 8 5:53PM ; [facility] Psychophysiological Insomnia 03/08/2016 FRANCINE DHALIWAL MD Active Last Documented On 7 4:59PM ; [facility] Nicotine Dependence 05/13/2014 FRANCINE MARTINEZ MD Active Last Documented On 7 5:13PM ; [facility] Generalized Anxiety Disorder 01/05/2014 FRANCINE DHALIWAL MD Active Last Documented On 4 10:48AM ; [facility] Major Depression, Recurrent 01/05/2014 FRANCINE DHALIWAL MD Active Last Documented On 4 10:12AM ; [facility] Bipolar II Disorder 10/11/2013 FRANCINE MARTINEZ MD Active Last Documented On 4 1:19AM ; [facility] Plan of Treatment No Plan of Treatment Recorded Assessments Includes: Assessments from this encounter Findings - Attention deficit disorder without hyperactivity, predominantly inattentive type - Last Documented On 03/05/2022 4:29PM ; [facility] Medical Equipment - Implanted Devices Includes: Current Devices No Medical Equipment Recorded Medications Includes: Medications discussed during this encounter and other current Medications New / Renewed during this visit FRANCINE DHALIWAL MD on 03/05/2022 Azstarys 52.3-10.4 MG Oral Capsule Provider: FRANCINE DHALIWAL MD 30 day supply: 30 capsule, 0 refills Diagnosis: Attn-defct hyperactivity disorder, predom inattentive type 1 Capsule every morning Pharmacy: [facility] [id number], [id number] - Last Documented On 04/08/2022 1:13PM By Randi Dhaliwal MD ; [facility] Current Medications (continue as prescribed) QUEtiapine Fumarate 25 MG Oral Tablet 05/06/2022 Pro vider: Diagnosis: 1 tab at bedtime as needed Last Documented On 05/06/2022 5:13PM By MAXIMO EVANS ; [facility] Focalin 10 MG Oral Tablet 05/06/2022 Provider: FRANCINE DHALIWAL MD Diagnosis: Attn-defct hyper activity disorder, predom inattentive type as directed -- 1 tab in am a nd 1 tab at 12 noon Last Documented On 05/06/2022 6:08PM By Randi Dhaliwal MD ; [facility] Azstarys 52.3-10.4 MG Oral Capsule 05/06/2022 Provider: FRANCINE DHALIWAL MD Diagnosis: Attn-defct hyper activity disorder, predom inattentive type 1 Capsule every morning Last Documented On 05/06/2022 6:08PM By Randi Dhaliwal MD ; [facility] HYDROcodone-Acetaminophen 7. 5-325 MG Oral Tablet 01/07/2022 Provider: JEAN TAPIA MD Diagnosis: 1 - 3 times daily as needed 01/07/22 Last Documented On 02/06/2022 4:45PM By JOIE ARCHIBALD ; [facility] Vilazodone HCl 40 MG Oral Tablet 11/28/2021 Provider: FRANCINE DHALIWAL MD Diagnosis: Major depressive disorder, recurrent, moderate 1 tablet every morning with food Last Documented On 10:16AM By Randi Dhaliwal MD ; [facility] Vitamin D (Ergocalciferol) 1.25 MG (82157 UT) Oral Capsule 11/22/2021 Provider: FRANCINE DHALIWAL MD Diagnosis: Vitamin D defici ency, unspecified TAKE 1 CAPSULE BY MOUTH ONCE A WEEK Last Documented On 11/22/2021 8:08AM By Randi Dhaliwal MD ; [facility] Belsomra 10 MG Oral Tablet 10/31/2021 Provider: FRANCINE DHALIWAL MD Diagnosis: Psychophysiologi c insomnia One tablet at bed time Last Documented On 10/31/2021 5:17PM By Randi Dhaliwal MD ; [facility] Vilazodone HCl 20 MG Oral Tablet 10/31/2021 Provider: FRANCINE DHALIWAL MD Diagnosis: Major depressive disorder, recurrent, moderate 1 tablet every morning with food Last Documented On 10/31/2021 5:17PM By Randi Dhaliwal MD ; [facility] Sildenafil Citrate 20 MG Oral Tablet 09/12/2020 Provider: FRANCINE DHALIWAL MD Diagnosis: Male erectile di sorder as directed -- 1 tab a day a s needed only Last Documented On 09/12/2020 6:09PM By Randi Dhaliwal MD ; [facility] Cyclobenzaprine HCl 10 MG Oral Tablet 07/28/2018 Pro vider: JEAN TAPIA MD Diagnosis: 1 tab prn Last Documented On 10/14/2018 3:12PM By MAXIMO EVANS ; [facility] Suspended Medications lamoTRIgine 150 MG Oral Tablet 04/24/2022 Provider: FRANCINE DHALIWAL MD Diagnosis: Bipolar II disor jason TAKE 1 TABLET BY MOUTH TWICE A DAY Last Documented On 3 12:08PM By Randi Dhaliwal MD ; [facility] Past Medications on file Azstarys 39.2-7.8 MG Oral Capsule 02/07/2022 - 03/09/2022 Provider: FRANCINE DHALIWAL MD Diagnosis: Attn-defct hyper activity disorder, predom inattentive type 1 Capsule every morning Last Documented On 02/07/2022 3:04PM By Randi Dhaliwal MD ; [facility] Mydayis 25 MG Oral Capsule Extended Release 24 Hour 04/13/2019 - 05/13/2019 Provider: FRANCINE DHALIWAL MD Diagnosis: Attn-defct hyper activity disorder, predom inattentive type 1 Capsule every morning Last Documented On 0 11:16AM By Randi Dhaliwal MD ; [facility] Levofloxacin 500 MG Tablet 12/09/2014 - 12/23/2014 Pro vider: Diagnosis: Take 1 tablet by mouth twice daily until gone Last Documented On 5 1:37PM By RYNE EMERY LPN ; [facility] Cialis 20 MG Tablet 12/09/2014 - 12/12/2014 Provider: FRANCINE DHALIWAL MD Diagnosis: Male erectile dysfunction, unspecified as directed --given 3 tablet s samples of 20 mg --36 hour tablet Last Documented On 12/09/2014 2:07PM By Randi Dhaliwal MD ; [facility] Medications Administered Includes: Administered Medications from this [...] Diagnosis * PHONE CALL FRANCINE DHALIWAL MD [facility] 03/05/19 23 3:46PM 11:59PM 

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
--- OUTSIDE RECORDS SUMMARY | 2024-06-04 08:51 | XMS_ITS | Encounter Summary ---
Author Organization [facility] Health Address [address] [place] [address] Care Team Providers Care Adult Basic Education Manager Name Role Phone Marcello Briceño DO Primary Care Provider + Pcp, [facility] Primary Care Provide r Unavailable Encounter Details Date Type Department Care Team (Late st Contact Info) Description 02/26/2011 [facility] Outpatient Visit EXTERNAL NON-[facility] DEPT Marcello Briceño DO [address] [address] Social History Tobacco Use Types Packs/Day Years [...] on file 

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
== END 2024-06-04 08:40 | disposition home or self-care (01) ==
LOC: ANHAUDIO 08:40
PROVIDERS: PCP Family Medicine; Visit Provider Physician Assistant
DX: H90.3 Sensorineural hearing loss, bilateral (principal)
CPT/HCPCS: 92557; 92567